=== PATIENT | female | born 1995 | race Caucasian/White ===

== ENCOUNTER → 2023-09-02 12:19 | Outpatient (CLI) | payer OTHER, SELFPAY ==
[2023-09-02 13:10] LABS: Add Manual Diff / Slide Review NO; Basophils Absolute Auto 0 /uL (0-100); Basophils Percent Auto 0.3 % (0-2); Eosinophils Absolute Auto 100 /uL (0-450); Eosinophils Percent Auto 0.9 % (2-4); Hematocrit 35.4 % (36-46); Hemoglobin 11.8 g/dL (12.0-16.0); Lymphocytes Absolute Auto 1300 /uL (1100-4500); Lymphocytes Percent Auto 13.4 % (25-40); Mean Corpuscular HGB Conc 33.4 % (30-36); Mean Corpuscular Hemoglobin 29.1 PG (26-34); Mean Corpuscular Volume 87.1 fL (80-100); Monocytes Absolute Auto 800 /uL (0-900); Monocytes Percent Auto 7.9 % (3-14); Neutrophils Absolute Auto 7700 /uL (1500-7000); Neutrophils Percent Auto 77.5 % (50-75); Platelet Count 270 X10^3/uL (150-400); Red Blood Cell Count 4.06 X10^6/uL (4.0-5.2); Red Cell Distribution Width 14.3 % (11.6-14.8); White Blood Cell Count 9.9 X10^3/uL (4.5-11.0)
[2023-09-02 13:12] LABS: Appearance Urine UA CLEAR; Bilirubin Urine UA NEGATIVE (NEGATIVE); Color Urine UA YELLOW; Glucose Urine UA NEGATIVE (Negative); Ketones Urine UA NEGATIVE (NEGATIVE); Leukocyte Esterase Urine UA NEGATIVE (NEGATIVE); Nitrite Urine UA NEGATIVE (Negative); Occult Blood Urine UA TRACE-INTACT (Negative); Protein Urine UA NEGATIVE (Negative); Urobilinogen Urine UA 0.2 E.U./dL (0.2)
[2023-09-02 13:28] LABS: pH Urine UA 6.5 (4.5-8.0)
[2023-09-02 17:31] LABS: HIV 1 & 2 Ab/Ag 4th Gen Combo NEGATIVE (NEGATIVE); Hep C Virus Ab w/Reflex Quant NEGATIVE s/c (NEGATIVE); Hepatitis B Surface Antigen NEGATIVE s/c (NEGATIVE); Rubella Antibody IgG 8.9 IU/mL (>15)
[2023-09-03 08:08] LABS: RPR Screen Non Reactive (Non Reactive)
[2023-09-03 08:09] LABS: Varicella IgG Antibody <135 index (Immune >165)
== END ==
PROVIDERS: Referring Provider Student in an Organized Health Care Education/Training Program; Visit Provider Student in an Organized Health Care Education/Training Program
DX: Z34.00 Encounter for supervision of normal first pregnancy, unspecified trimester (principal)
CPT/HCPCS: 36415; 80055; 81003; 86787; 86803; 86850; 86900; 86901; 87086; 87389

== ENCOUNTER → 2023-10-28 15:01 | Outpatient (CLI) | payer OTHER, SELFPAY ==
[2023-10-30 20:36] LABS: AFP, Serum 57.6 ng/mL (.); Estriol, Free 0.59 ng/mL (.); Inhibin A, Dimeric 114.62 pg/mL (.); Inhibin A, MoM 0.65 (.); Maternal Ethnicity Caucasian (.); Maternal Weight 128 lbs (.); Number of Fetuses No (.); OSBR Risk 1 IN 2155 (.); Results Report (.); Test Results *Screen Negative* (.); hCG, MoM 0.55 (.); hCG, Serum 28907 mIU/mL (.)
== END ==
LOC: LAB 15:03
PROVIDERS: Referring Provider Family Medicine; Visit Provider Family Medicine
DX: Z34.00 Encounter for supervision of normal first pregnancy, unspecified trimester (principal)
CPT/HCPCS: 36415; 82105; 82677; 84702; 86336

== ENCOUNTER → 2023-11-29 14:42 | Outpatient (CLI) | payer OTHER, SELFPAY ==
--- NOTE | 2023-11-29 14:44 | DI.US.S_ITS ---
PROCEDURE: US OB >= 14 WEEKS FETUS INDICATIONS: anatomy OUTSIDE/PRIOR DATING DATA: Last menstrual period (LMP): 07/12/2023. LMP-based estimated date of delivery (MEENA): 04/11/2024. First dating scan (date and location): 09/02/2023. Estimated date of delivery (MEENA) from first dating scan: 04/17/2024. The calculations are made using the working MEENA of 04/17/2024. TECHNIQUE: Real-time scanning was performed of the fetus, with image documentation and biometric measurements. Endovaginal scanning: Non COMPARISON: None. FINDINGS: General: A single living intrauterine gestation is present. Presentation: Vertex. Placenta: Placental position is posterior , without previa. Amniotic fluid index: 11.7 cm, normal range is 5-24 cm. Single deepest vertical pocket is 3.4 cm. heart rate: 124 beats per minute. Maternal cervical canal: 2.9 cm long. Normal lower limit is 2.5 cm. biometrics: Biparietal diameter: 4.8 cm, 20 week 4 day Head circumference: 17.9 cm, 20 week 3 day Abdominal circumference: 14.4 cm, 19 week 5 day Femur length: 3.1 cm, 19 week 5 day Clinically estimated gestational age: 20 week 0 day Composite gestational age from present scan: 20 week 1 day Estimated weight and percentile: 315 g, 35 percentile Anatomic survey: Neuro: Ventricles are non-dilated at less than 10 mm. Cisterna magna is normal at 3-11 mm. Cerebellum is normal in size and morphology. Nuchal skin fold: Normal at less than 6 mm between 14-21 weeks gestational age. Face: Facial profile not well seen Spine: No evidence for spina bifida. Heart: Right ventricular outflow track not well seen Diaphragm: Diaphragm is intact. Stomach: Left-sided stomach is present. Kidneys: No hydronephrosis. Normal is less than 5 mm in 2nd trimester, less than 7 mm in 3rd trimester. Cord: 2 vessel cord Bladder: Normal in size. Extremities: All 4 extremities identified. IMPRESSION: Single live intrauterine consistent with a 20 week 1 day gestation by current ultrasound. Two vessel cord noted. Right ventricular outflow track and facial profile not well visualized. Attention on follow-up. Approved by: Ivan Coe M.D. on 12/02/2023 at 18:17
== END ==
LOC: US 14:43
PROVIDERS: Referring Provider Family Medicine; Visit Provider Family Medicine
DX: Z34.02 Encounter for supervision of normal first pregnancy, second trimester (principal); Z3A.20 20 weeks gestation of pregnancy
CPT/HCPCS: 76811

== ENCOUNTER → 2023-12-10 11:15 | Outpatient (CLI) | payer OTHER, SELFPAY ==
[2023-12-10 12:04] LABS: Specimen Label NATERA
== END ==
LOC: LAB 11:16
PROVIDERS: Referring Provider Family Medicine; Visit Provider Family Medicine
DX: O28.3 Abnormal ultrasonic finding on antenatal screening of mother (principal)
CPT/HCPCS: 36415

== ENCOUNTER → 2023-12-20 13:15 | Outpatient (CLI) | payer OTHER, SELFPAY ==
--- NOTE | 2023-12-20 13:16 | DI.US.S_ITS ---
PROCEDURE: US OB FOLLOW UP INDICATIONS: couldn't see all structures on anatomy u/s OUTSIDE/PRIOR DATING DATA: Last menstrual period (LMP): 07/12/2023 LMP-based estimated date of delivery (MEENA): 04/11/2024. First dating scan (date and location): 09/02/2023. Estimated date of delivery (MEENA) from first dating scan: 04/17/2024. Working MEENA is 04/17/2024 TECHNIQUE: Real-time scanning was performed of the fetus, with image documentation and biometric measurements. COMPARISON: None. FINDINGS: General: A single living intrauterine gestation is present. Presentation: Transverse. Placenta: Placental position is posterior , without previa. Amniotic fluid index: 13.0 cm, normal range is 5-24 cm. Single deepest vertical pocket is 5.1 cm. heart rate: 149 beats per minute. Maternal cervical canal: 2.8 cm long. Normal lower limit is 2.5 cm. biometrics: Clinically estimated gestational age: 25 weeks 3 days Normal appearance of the RVOT and facial profile. 2 vessel cord again noted. Possible maternal right uterine intramural fibroid versus Fredis Talley contraction measuring 7.0 cm IMPRESSION: 1. Single living IUP redemonstrated and today's exam demonstrating normal appearance of the facial profile and RVOT. 2. 2 vessel cord again seen. 3. Possible maternal intramural fibroid versus Fredis Talley contraction. Attention on follow-up recommended. We strive to produce accurate, complete, and clear reports of imaging services. To assist us in improving patient care, this report was composed using standard report templates and voice recognition software. Therefore, it may contain abnormal punctuation, insertions and/or omissions. Occasional wrong-word or sound-alike substitutions may occur. Though we review the report and make efforts to correct it, we do recommend that the report be read carefully in proper context to recognize any text inaccuracies. Dictated by: Con JAEGER Interpreted: Kemar Patton MD on 12/20/2023 at 14:48 Transcribed by: SUPA on 12/20/2023 at 14:51 Approved by: Kemar Patton M.D. on 12/20/2023 at 17:07
== END ==
LOC: US 13:15
PROVIDERS: Referring Provider Family Medicine; Visit Provider Family Medicine
DX: Z36.2 Encounter for other antenatal screening follow-up (principal); Z3A.25 25 weeks gestation of pregnancy
CPT/HCPCS: 76816

== ENCOUNTER 2024-01-13 09:08 | Outpatient (CLI) | payer OTHER, SELFPAY ==
--- NOTE | 2024-01-13 09:42 | PM.OBTRLD ---
Visit Information Visit Information Date of evaluation: 01/13/24 Primary OB Provider: Hailey Austin On-call OB Provider: Evelyn Carpio Reason for Evaluation: Yes non-stress test REPLACED BY [facility] Medical History (Updated 01/13/24 @ 09:45 by Evelyn Carpio MD) Acne (~2009) Anxiety Radial styloid tenosynovitis (~2020) Vaginismus Healthy adult Surgical History (Updated 08/19/23 @ 09:05 by Vannessa Henderson RN) No pertinent past surgical history Family History (Updated 10/26/23 @ 20:52 by Rosie Sagastume) Mother Hypothyroidism Sister Hyperthyroidism Grandfather Heart attack Hyperlipidemia Father Hyperlipidemia Social History marital status: number of children: 0 household members: spouse lives independently: Yes caregiver/support person: No housing: house pets and animals: Yes (2 small dogs) education level: college occupational status: employed current occupational exposures/hazards: No special nathaniel needs: No travel history: recent seatbelt use: always helmet use: Yes water heater temp set < 120 deg: Yes working smoke detector in home: Yes fire extinguisher in home: Yes carbon monox detector in home: Yes firearms in home: No do you feel safe at home: Yes Smoking Status: Never smoker second hand exposure: No alcohol intake: former substance use type: does not use during the past year weight has: remained stable well-balanced diet: rarely or never daily servings fruits/ve-1 caffeine: Yes (aware of 200mg limit) Type(s) of exercise: none Review of Systems Review of Systems Narrative: Patient presented to labor and delivery because she has not felt her baby move in 2 days. No abdominal pain. No vaginal bleeding. No fevers. Exam Narrative Exam Narrative: Patient's abdomen is gravid, soft, nontender. Ultrasound was performed and shows a non viable fetus in vertex presentation with normal amniotic fluid volume. Four-chamber heart was seen but is not yaron. Evaluation Evaluation Baseline heart rate: 0 Diagnosis, Plan/Disposition Final Diagnosis (1) demise in stevens greater than 22 weeks gestation, antepartum: Status: Acute Plan/Disposition Plan: Discussed with patient it is unclear at this time why the baby has . Perhaps due to the two-vessel cord but normal fluid. Discussed because the baby is vertex the safest thing for her and her future plans would be to have a vaginal delivery. Patient is going to talk to her and decide when she would like to come in for induction of labor and delivery of the nonviable fetus. Reiterated by the nurse and me that her recent travel did not cause the baby to pass away. Our condolences were given to the patient. She will let us know when she is ready to be delivered. OB Disposition: home
== END 2024-01-13 09:36 | disposition home or self-care (01) ==
LOC: LABOR 13:14 → OB 02-07 08:25
PROVIDERS: Referring Provider Family Medicine; Visit Provider Family Medicine
DX: O36.4XX0 Maternal care for intrauterine death, not applicable or unspecified (principal); Z3A.26 26 weeks gestation of pregnancy
CPT/HCPCS: 59025; 76815; G0378; G0379

== ENCOUNTER 2024-01-14 11:15 | Inpatient (IN) | payer OTHER, SELFPAY ==
--- NOTE | 2024-01-14 11:25 | PM.OBHP.1 ---
OB HPI Date/Time Date of admission: 01/14/24 Date Patient Seen: 01/14/24 Time Patient Seen: 11:25 History of Present Condition Chief complaint: IUFD, 26+3 wks, two vessel umbilical cord : 1 Para: 0 Estimated Date of Delivery: 04/17/24 Estimated Gestational Age (weeks): 26+3 Narrative: Renee Nayak is a 28 year old primigravida admitted now at 26+3 weeks gestational age after discovery of intrauterine demise yesterday. Patient last detected movement on the evening of 01/05/2024 and ultrasound yesterday confirmed intrauterine demise. Patient's course has been largely unremarkable with normal cell free DNA studies showing a low risk male infant after her 20 week anatomy scan showed a 2 vessel umbilical cord. The remainder of the anatomic survey was normal and growth has been appropriate to date. Indications Indication for induction OB: other ( demise) History of Present care: good care Dating criteria: LMP confirmed by 1st trimester US Ultrasounds: normal 1st trimester US and normal mid trimester US Abnormal ultrasound findings: 2 vessel umbilical cord without obvious dysmorphism; CfDNA studies negative Obstetrical complications: other (IUFD) Medical complications: none Preadmission Labs Blood type: A (+) positive -: Antibody screen: negative, GBS status: unknown, HBsAG: negative, HIV: negative and RPR/VDLR: negative -: Chlamydia screen: not detected and Gonorrhea screen: not detected -: Rubella: not immune and Varicella: not immune HCT: 36.4 HCAB: negative PAP: Normal Quad screen: Normal Cell-free DNA: Low risk male Prior (ies) History: Primigravida Evaluation Evaluation Baseline heart rate: 0 Variability: Absent (0-2) monitor accelerations: Absent Monitor Decelerations: Absent Dilation: Closed Effacement: 0-30% station: -3 Position of cervix: mid Consistency: soft Boateng score: 3 PFSH Medical History (Updated 01/13/24 @ 09:45 by Evelyn Carpio MD) Acne (~2009) Anxiety Radial styloid tenosynovitis (~2020) Vaginismus Healthy adult Surgical History (Updated 08/19/23 @ 09:05 by Vannessa Henderson RN) No pertinent past surgical history Family History (Updated 10/26/23 @ 20:52 by Rosie Sagastume) Mother Hypothyroidism Sister Hyperthyroidism Grandfather Heart attack Hyperlipidemia Father Hyperlipidemia Social History marital status: number of children: 0 household members: spouse lives independently: Yes caregiver/support person: No housing: house pets and animals: Yes (2 small dogs) education level: college occupational status: employed current occupational exposures/hazards: No special nathaniel needs: No travel history: recent seatbelt use: always helmet use: Yes water heater temp set < 120 deg: Yes working smoke detector in home: Yes fire extinguisher in home: Yes carbon monox detector in home: Yes firearms in home: No do you feel safe at home: Yes Smoking Status: Never smoker second hand exposure: No alcohol intake: former substance use type: does not use during the past year weight has: remained stable well-balanced diet: rarely or never daily servings fruits/ve-1 caffeine: Yes (aware of 200mg limit) Type(s) of exercise: none Meds Home Medications and Allergies Home Medications Medication Instructions Recorded Confirmed Type vitamin-ferrous sulfate tab PO 08/19/23 01/07/24 History 27 mg iron-folic acid 0.8 mg tablet sertraline 25 mg tablet 25 mg PO DAILY #30 tabs 12/10/23 01/07/24 Rx Allergies Allergy/AdvReac Type Severity Reaction Status Date / Time No Known Drug Allergies Allergy Unverified 01/07/24 14:37 Review of Systems Review of Systems Narrative: Problem-specific ROS positives included in HPI OB Exam Vital signs Blood Pressure: 137/80 Pulse Rate: 83 Temperature: 98.8 F HENMT Head: normal to inspection, normocephalic and atraumatic Eyes General: appearance normal, both eyes and all related structures Resp Effort & Inspection: normal respiratory effort and able to speak in complete sentences Uterus Location (Fundal Height): 26 Presentation: vertex Estimated Weight (lbs): 2 Objective Labs 01/14/24 12:25 Assessment and Plan Assessment and Plan Assessment and Plan narrative: ASSESSMENT 1. Intrauterine , 26+ 3 weeks gestational age 2. Intrauterine demise 3. Two-vessel umbilical cord PLAN 1. Admit for ripening, induction, and delivery 2. See admission orders
--- NOTE | 2024-01-14 12:31 | PM.PN.1 ---
Subjective Subjective Date Patient Seen: 01/14/24 Time Patient Seen: 13:00 Interval history: The patient is accompanied by her Michael and her sister as well as her mother. Exam Narrative Exam Narrative: No change from admission exam. All appeared to be grieving appropriately with excellent communication between family members. Objective Labs 01/14/24 12:25 [facility] Medical History (Updated 01/14/24 @ 21:26 by Gerald Lauren MD) Acne (~2009) Anxiety Radial styloid tenosynovitis (~2020) Vaginismus Healthy adult Surgical History (Updated 08/19/23 @ 09:05 by Vannessa Henderson RN) No pertinent past surgical history Family History (Updated 10/26/23 @ 20:52 by Rosie Sagastume) Mother Hypothyroidism Sister Hyperthyroidism Grandfather Heart attack Hyperlipidemia Father Hyperlipidemia Social History marital status: number of children: 0 household members: spouse lives independently: Yes caregiver/support person: No housing: house pets and animals: Yes (2 small dogs) education level: college occupational status: employed current occupational exposures/hazards: No special nathaniel needs: No travel history: recent seatbelt use: always helmet use: Yes water heater temp set < 120 deg: Yes working smoke detector in home: Yes fire extinguisher in home: Yes carbon monox detector in home: Yes firearms in home: No do you feel safe at home: Yes Smoking Status: Never smoker second hand exposure: No alcohol intake: former substance use type: does not use during the past year weight has: remained stable well-balanced diet: rarely or never daily servings fruits/ve-1 caffeine: Yes (aware of 200mg limit) Type(s) of exercise: none Assessment & Plan Assessment and plan (1) demise in [place] greater than 22 weeks gestation, antepartum: Status: Acute (2) Anxiety: Status: Acute (3) Vaginismus: Status: Acute (4) : Qualifiers: Weeks of gestation: 26 weeks Qualified Code(s): Z3A.26 - 26 weeks gestation of Status: Acute Plan We had an extended discussion regarding the demise leading to her admission, ripening, and her induction. Sincere condolences expressed and open discussion with the family regarding what has happened, potential causes, commitment to determining a cause if possible, and support during the course of this very difficult time for her in the family were very fruitful. We discussed at length the plan for ripening and induction with oral Cytotec overnight, early placement of continuous lumbar epidural with catheter, HS sedation for sleep, and availability of as needed anxiolytics. We also discussed the course and conduct of ripening, induction, and delivery as well as expectations at the time of delivery and bonding with her son Maxwell. We will continue these discussions and also advised the patient that my colleague Dr. Monica Reynoso, would also be assisting in her care during the course of the challenging times ahead. Time Spent With Patient Time with patient: less than 30 minutes
[2024-01-14 12:42] LABS: Add Manual Diff / Slide Review NO; Basophils Absolute Auto 0 /uL (0-100); Basophils Percent Auto 0.3 % (0-2); Eosinophils Absolute Auto 0 /uL (0-450); Eosinophils Percent Auto 0.1 % (2-4); Hematocrit 36.4 % (36-46); Hemoglobin 12.3 g/dL (12.0-16.0); Lymphocytes Absolute Auto 1100 /uL (1100-4500); Lymphocytes Percent Auto 9.7 % (25-40); Mean Corpuscular HGB Conc 33.7 % (30-36); Mean Corpuscular Hemoglobin 29.9 PG (26-34); Mean Corpuscular Volume 88.8 fL (80-100); Monocytes Absolute Auto 700 /uL (0-900); Monocytes Percent Auto 6.5 % (3-14); Neutrophils Absolute Auto 9600 /uL (1500-7000); Neutrophils Percent Auto 83.4 % (50-75); Platelet Count 273 X10^3/uL (150-400); Red Cell Distribution Width 13.8 % (11.6-14.8); White Blood Cell Count 11.5 X10^3/uL (4.5-11.0)
[2024-01-14] MEDS: LACTATED RINGERS 1,000 ML 100 ML IV (13:24)
[2024-01-14 13:49] VITALS: BP 137/80
--- NOTE | 2024-01-14 14:13 | PM.AN.REGBLK ---
Regional Block <Aniya Pitts CRNA - Last Filed: 01/15/24 10:21> Pre-procedure Procedure: Continuous Lumbar Epidural for L&D Attending OB provider: Hailey Austin PMH/ROS narrative: presenting s/p demise at 26 weeks, requesting labor epidural. PSH/Anesthesia history narrative: See pre-anesthesia eval. Exam narrative: See pre-anesthesia eval. ASA Class: II Labs: Hct 36.4 % (36-46) 01/14/24 12:25 Plt Count 273 X10^3/uL (150-400) 01/14/24 12:25 Medications: Current Medications Generic Name Dose Route Start Last Admin Trade Name Freq PRN Reason Stop Dose Admin Acetaminophen 650 mg 01/14/24 11:25 Acetaminophen 325 Mg Tablet PO Q4HR PRN Fever/Mild Pain (1-3) Calcium Carbonate 1,000 mg 01/14/24 11:25 Calcium Carbonate 500 Mg Tab PO Q2H PRN Dyspepsia Lactated Ringer's 1,000 mls @ 100 mls/hr 01/14/24 11:30 01/14/24 13:24 Lactated Ringers IV 100 mls/hr CONT ROWAN Administration Misoprostol 400 mcg 01/14/24 13:00 Misoprostol 200 Mcg Tablet VAG Q4HR ROWAN Morphine Sulfate 2 mg 01/14/24 11:25 Morphine 2 Mg/Ml Inj IV Q4HR PRN Pain, Moderate (4-6) Zolpidem Tartrate 5 mg 01/14/24 11:25 Zolpidem 5 Mg Tablet PO BEDTIME PRN Sleep Allergies: Allergies Allergy/AdvReac Type Severity Reaction Status Date / Time No Known Drug Allergies Allergy Unverified 01/07/24 14:37 Procedure Insertion date: 01/14/24 Insertion time: 13:56 Prep/Local: 1% lidocaine (3mL at skin. Chlorhexadine for skin prep.) Interspace: L2/L3 Patient position: sitting Needle: 18 gauge Yakelin Loss of resistance with: saline OLI at (cm): 5 Catheter placed at SKIN (cm): 12 Catheter in SPACE (cm): 7 Insertion: No CSF, No Blood, No Paresthesia with insertion, No Paresthesia with injection and No Test dose reaction Initial Medications TEST DOSE time: 13:57 TEST DOSE: 1.5% lidocaine with epinephrine 1:200k (mL): 3 Infusion INFUSION: 0.125% bupivacaine and with fentanyl 2 mcg/mL Initial rate (mL/hr): 4 Subsequent interventions: Discussed with patient starting epidural at low rate and holding PCEA until contractions increase in strength. Patient agreeable. Post-procedure Anesthesia date START: 01/14/24 Anesthesia time START: 13:25 Anesthesia date END: 01/15/24 Anesthesia time END: 10:00 Post-procedure Anesthesia Assessment: Yes CV function: HR/BP stable, Yes Resp function: RR/sat/airway adequate, Yes Post-op hydration adequate, Yes Pain control adequate, Yes Nausea & vomiting absent, Yes Temperature > 36 C and Yes Mental status appropriate <Tony Barrera MD - Last Filed: 01/15/24 10:57> Infusion Subsequent interventions: Discussed with patient starting epidural at low rate and holding PCEA until contractions increase in strength. Patient agreeable. Maile Barrera MD - Bolus with 3ml 0.5%Bupivacaine + 3ml 2%Lidocaine. Increased rate to 6ml/hr.
[2024-01-14 14:35] LABS: UR Morphine/Opiate cutoff 300 Negative (Negative); Ur Creatinine Normal (Normal); Ur Specific Gravity Normal (Normal); Urine Amphetamines Negative (Negative); Urine Barbiturates Negative (Negative); Urine Benzodiazepines Negative (Negative); Urine Cocaine Negative (Negative); Urine MDMA Negative (Negative); Urine Methadone Negative (Negative); Urine Methamphetamines Negative (Negative); Urine Oxycodone Negative (Negative); Urine Phencyclidine Negative (Negative); Urine Tetrahydrocannabinol Negative (Negative); Urine Tricyclic Antidepressant Negative (Negative); Urine pH Normal (Normal)
[2024-01-14] MEDS: miSOPROStoL 25 MCG TABLET 50 MCG PO ×3 (15:40→23:49)
--- NOTE | 2024-01-14 16:06 | PM.AN.REGBLK ---
Regional Block Pre-procedure Labs: Hct 36.4 % (36-46) 01/14/24 12:25 Plt Count 273 X10^3/uL (150-400) 01/14/24 12:25 Medications: Current Medications Generic Name Dose Route Start Last Admin Trade Name Freq PRN Reason Stop Dose Admin Acetaminophen 650 mg 01/14/24 11:25 Acetaminophen 325 Mg Tablet PO Q4HR PRN Fever/Mild Pain (1-3) Butorphanol Tartrate 0.5 mg 01/14/24 14:19 Butorphanol 1 Mg/Ml Vial IV 01/15/24 14:20 Q3H PRN Pain, Moderate (4-6) Calcium Carbonate 1,000 mg 01/14/24 11:25 Calcium Carbonate 500 Mg Tab PO Q2H PRN Dyspepsia Diphenhydramine HCl 25 mg 01/14/24 14:30 Diphenhydramine 50 Mg/Ml Vial IV 01/15/24 14:31 Q30MIN ROWAN Diphenhydramine HCl 25 mg 01/14/24 14:21 Diphenhydramine 50 Mg/Ml Vial IV Q10M PRN Pruritis Ephedrine Sulfate 10 mg 01/14/24 14:21 Ephedrine 50 Mg/Ml Vial IV Q5M PRN Blood pressure decrease more than 20% of baseline. Lactated Ringer's 1,000 mls @ 100 mls/hr 01/14/24 11:30 01/14/24 13:24 Lactated Ringers IV 100 mls/hr CONT ROWAN Administration Sodium Chloride 1,000 mls @ 100 mls/hr 01/14/24 14:30 Normal Saline 0.9% IV 01/15/24 14:21 CONT ROWAN Lactated Ringer's 1,000 mls @ 100 mls/hr 01/14/24 14:30 Lactated Ringers IV CONT ROWAN FENT 2MCG/ML BUPIV 0.125% EPI 200 mcg in 100 mls @ 4 mls/hr 01/14/24 14:30 Fentanyl/Bupiv/Ns 2mcg/Ml - 0.125% EPIDURAL CONT ROWAN Misoprostol 50 mcg 01/14/24 15:30 01/14/24 15:40 Misoprostol 25 Mcg Tablet PO 50 mcg Q4H ROWAN Administration Morphine Sulfate 2 mg 01/14/24 11:25 Morphine 2 Mg/Ml Inj IV Q4HR PRN Pain, Moderate (4-6) Nalbuphine HCl 5 mg 01/14/24 14:19 Nalbuphine 20 Mg/Ml Ampul IV Q6H PRN Pruritus Nalbuphine HCl 2.5 mg 01/14/24 14:21 Nalbuphine 20 Mg/Ml Ampul IV Q10M PRN Pruritis Naloxone HCl 0.4 mg 01/14/24 14:19 Naloxone 0.4 Mg/Ml Vial IV Q2MIN PRN Opiate Reversal Ondansetron HCl 4 mg 01/14/24 17:00 Ondansetron 4 Mg/2 Ml Inj IV 01/14/24 21:01 Q4HR ROWAN Oxycodone/Acetaminophen 1 tab 01/14/24 14:19 Oxycodone/Acetaminophen 5/325 Tablet PO 01/15/24 14:20 Q4HR PRN Pain, Moderate (4-6) Zolpidem Tartrate 5 mg 01/14/24 11:25 Zolpidem 5 Mg Tablet PO BEDTIME PRN Sleep Allergies: Allergies Allergy/AdvReac Type Severity Reaction Status Date / Time No Known Drug Allergies Allergy Unverified 01/07/24 14:37 --: RN and patient requesting bolus for boyle catheter placement. Pump infusion left unchanged. BP stable prior to bolus. Initial Medications BOLUS DOSE time: 15:55 BOLUS DOSE (mL): 5 BOLUS DOSE med: 0.25% bupivacaine
[2024-01-14 21:23] VITALS: BP 137/80; PULSE 83; TEMP 37.1
--- NOTE | 2024-01-14 21:30 | PM.OBPNLAB ---
Date/Time Date Patient Seen: 01/14/24 Time Patient Seen: 17:30 Pain Control Pain control: tolerating well and epidural Pelvic Exam station: -3 Assessment and Plan Assessment: other (Ripening ongoing) Plan: continuous present management Comments: The patient is very comfortable with her epidural in place. Trevino catheter inserted and draining well. Again discussed plan for overnight management and rationale for decisions with the patient and her family. They are all understadably saddened but all seem to be coping with this very difficult situation in a mutually supportive but understandably subdued way. Staff aware I will be manager acquisition tonight supporting any needs the patient or her family may have.
[2024-01-15] MEDS: ZOLPIDEM 5 MG TABLET PO (00:44)
[2024-01-15] MEDS: miSOPROStoL 25 MCG TABLET 50 MCG PO ×2 (03:46→09:34)
--- NOTE | 2024-01-15 08:49 | PM.OBPNLAB ---
Date/Time Date Patient Seen: 01/15/24 Time Patient Seen: 08:00 Pain Control Pain control: tolerating well and epidural Pelvic Exam Dilation (cm): 4 Effacement (%): 100 station: -3 Amniotic membrane status: Bulging Comments: palpable parts within vaginal canal Contractions Contractions on admission: irregular Monitor mode: Palpation Contraction pattern: Irregular Status Comments: active management demise Assessment and Plan Assessment: induction ongoing Plan: continuous present management Comments: Care assumed from Dr. Lauren, condolences offered to patient and spouse maternal VSS/afebrile, received 50mcg misoprostol q4h overnight for purposes of cervical ripening Severe intolerance to exams/profound vaginismus secondary to h/o SA; moderate improvement with epidural however still with marked involuntary contraction On single digit exam SVE 4/C/ parts palpable within vagina AROM performed with return of scant serosanginuous non-malodorous fluid s/p overnight low-dose misoprostol, start pitocin for further augmentation additional dose PO misoprostol 50mcg now Stat CBC, fibrinogen ordered to assess maternal clotting status PRN IV analgesia, nitrous for maternal analgesia anticipate vaginal delivery
--- NOTE | 2024-01-15 09:09 | PM.AN.REGBLK ---
Regional Block Pre-procedure Labs: Hct 36.4 % (36-46) 01/14/24 12:25 Plt Count 273 X10^3/uL (150-400) 01/14/24 12:25 Medications: Current Medications Generic Name Dose Route Start Last Admin Trade Name Freq PRN Reason Stop Dose Admin Acetaminophen 650 mg 01/14/24 11:25 Acetaminophen 325 Mg Tablet PO Q4HR PRN Fever/Mild Pain (1-3) Butorphanol Tartrate 0.5 mg 01/14/24 14:19 Butorphanol 1 Mg/Ml Vial IV 01/15/24 14:20 Q3H PRN Pain, Moderate (4-6) Calcium Carbonate 1,000 mg 01/14/24 11:25 Calcium Carbonate 500 Mg Tab PO Q2H PRN Dyspepsia Diphenhydramine HCl 25 mg 01/14/24 14:30 Diphenhydramine 50 Mg/Ml Vial IV 01/15/24 14:31 Q30MIN ROWAN Diphenhydramine HCl 25 mg 01/14/24 14:21 Diphenhydramine 50 Mg/Ml Vial IV Q10M PRN Pruritis Ephedrine Sulfate 10 mg 01/14/24 14:21 Ephedrine 50 Mg/Ml Vial IV Q5M PRN Blood pressure decrease more than 20% of baseline. Lactated Ringer's 1,000 mls @ 100 mls/hr 01/14/24 11:30 01/14/24 13:24 Lactated Ringers IV 100 mls/hr CONT ROWAN Administration Sodium Chloride 1,000 mls @ 100 mls/hr 01/14/24 14:30 Normal Saline 0.9% IV 01/15/24 14:21 CONT ROWAN Lactated Ringer's 1,000 mls @ 100 mls/hr 01/14/24 14:30 Lactated Ringers IV CONT ROWAN FENT 2MCG/ML BUPIV 0.125% EPI 200 mcg in 100 mls @ 4 mls/hr 01/14/24 14:30 Fentanyl/Bupiv/Ns 2mcg/Ml - 0.125% EPIDURAL CONT ROWAN Oxytocin/Lactated Ringer's 30 unit in 500 mls @ 2 mls/hr 01/15/24 08:49 Oxytocin Premix IV TITRATE ROWAN Protocol 2 MILLIUNIT/MIN Lorazepam 0.5 mg 04/02/24 21:09 Lorazepam 0.5 Mg Tablet PO Q4HR PRN Anxiety Misoprostol 50 mcg 01/14/24 15:30 01/15/24 03:46 Misoprostol 25 Mcg Tablet PO 50 mcg Q4H ROWAN Administration Morphine Sulfate 2 mg 01/14/24 11:25 Morphine 2 Mg/Ml Inj IV Q4HR PRN Pain, Moderate (4-6) Nalbuphine HCl 5 mg 01/14/24 14:19 Nalbuphine 20 Mg/Ml Ampul IV Q6H PRN Pruritus Nalbuphine HCl 2.5 mg 01/14/24 14:21 Nalbuphine 20 Mg/Ml Ampul IV Q10M PRN Pruritis Naloxone HCl 0.4 mg 01/14/24 14:19 Naloxone 0.4 Mg/Ml Vial IV Q2MIN PRN Opiate Reversal Oxycodone/Acetaminophen 1 tab 01/14/24 14:19 Oxycodone/Acetaminophen 5/325 Tablet PO 01/15/24 14:20 Q4HR PRN Pain, Moderate (4-6) Zolpidem Tartrate 5 mg 01/14/24 11:25 01/15/24 00:44 Zolpidem 5 Mg Tablet PO 5 mg BEDTIME PRN Administration Sleep Allergies: Allergies Allergy/AdvReac Type Severity Reaction Status Date / Time No Known Drug Allergies Allergy Unverified 01/07/24 14:37 Initial Medications BOLUS DOSE time: 09:04 BOLUS DOSE (mL): 5 BOLUS DOSE med: 0.25% bupivacaine Infusion Initial rate (mL/hr): 11
--- NOTE | 2024-01-15 09:16 | PM.AN.REGBLK ---
Regional Block Pre-procedure Labs: Hct 36.4 % (36-46) 01/14/24 12:25 Plt Count 273 X10^3/uL (150-400) 01/14/24 12:25 Medications: Current Medications Generic Name Dose Route Start Last Admin Trade Name Freq PRN Reason Stop Dose Admin Acetaminophen 650 mg 01/14/24 11:25 Acetaminophen 325 Mg Tablet PO Q4HR PRN Fever/Mild Pain (1-3) Butorphanol Tartrate 0.5 mg 01/14/24 14:19 Butorphanol 1 Mg/Ml Vial IV 01/15/24 14:20 Q3H PRN Pain, Moderate (4-6) Calcium Carbonate 1,000 mg 01/14/24 11:25 Calcium Carbonate 500 Mg Tab PO Q2H PRN Dyspepsia Diphenhydramine HCl 25 mg 01/14/24 14:30 Diphenhydramine 50 Mg/Ml Vial IV 01/15/24 14:31 Q30MIN ROWAN Diphenhydramine HCl 25 mg 01/14/24 14:21 Diphenhydramine 50 Mg/Ml Vial IV Q10M PRN Pruritis Ephedrine Sulfate 10 mg 01/14/24 14:21 Ephedrine 50 Mg/Ml Vial IV Q5M PRN Blood pressure decrease more than 20% of baseline. Lactated Ringer's 1,000 mls @ 100 mls/hr 01/14/24 11:30 01/14/24 13:24 Lactated Ringers IV 100 mls/hr CONT ROWAN Administration Sodium Chloride 1,000 mls @ 100 mls/hr 01/14/24 14:30 Normal Saline 0.9% IV 01/15/24 14:21 CONT ROWAN Lactated Ringer's 1,000 mls @ 100 mls/hr 01/14/24 14:30 Lactated Ringers IV CONT ROWAN FENT 2MCG/ML BUPIV 0.125% EPI 200 mcg in 100 mls @ 4 mls/hr 01/14/24 14:30 Fentanyl/Bupiv/Ns 2mcg/Ml - 0.125% EPIDURAL CONT ROWAN Oxytocin/Lactated Ringer's 30 unit in 500 mls @ 2 mls/hr 01/15/24 08:49 Oxytocin Premix IV TITRATE ROWAN Protocol 2 MILLIUNIT/MIN Lorazepam 0.5 mg 04/02/24 21:09 Lorazepam 0.5 Mg Tablet PO Q4HR PRN Anxiety Misoprostol 50 mcg 01/14/24 15:30 01/15/24 03:46 Misoprostol 25 Mcg Tablet PO 50 mcg Q4H ROWAN Administration Morphine Sulfate 2 mg 01/14/24 11:25 Morphine 2 Mg/Ml Inj IV Q4HR PRN Pain, Moderate (4-6) Nalbuphine HCl 5 mg 01/14/24 14:19 Nalbuphine 20 Mg/Ml Ampul IV Q6H PRN Pruritus Nalbuphine HCl 2.5 mg 01/14/24 14:21 Nalbuphine 20 Mg/Ml Ampul IV Q10M PRN Pruritis Naloxone HCl 0.4 mg 01/14/24 14:19 Naloxone 0.4 Mg/Ml Vial IV Q2MIN PRN Opiate Reversal Oxycodone/Acetaminophen 1 tab 01/14/24 14:19 Oxycodone/Acetaminophen 5/325 Tablet PO 01/15/24 14:20 Q4HR PRN Pain, Moderate (4-6) Zolpidem Tartrate 5 mg 01/14/24 11:25 01/15/24 00:44 Zolpidem 5 Mg Tablet PO 5 mg BEDTIME PRN Administration Sleep Allergies: Allergies Allergy/AdvReac Type Severity Reaction Status Date / Time No Known Drug Allergies Allergy Unverified 01/07/24 14:37 --: Baby delivered. Pitocin continuing to run due to some retained placenta. Dr Reynoso will revaluate at 1:00 to see if D&C is necessary.
--- NOTE | 2024-01-15 11:03 | PM.OBPN.1 ---
Subjective - OB Subjective Patient comments: no complaints Narrative: Pt resting in bed with spouse, grieving appropriate, infant at bedside Date Patient Seen: 01/15/24 Time Patient Seen: 11:03 Exam Vital Signs (past 8 hours): BP 112/74 HR 65bpm SpO2 98% RA afebrile Narrative Exam Narrative: resting comfortably, appropriately grieving Const General: cooperative HENMT Head: normal to inspection Resp Effort & Inspection: normal respiratory effort Other: fundus firm at level of pubic symphysis, non-tender scant lochia noted per peripad Skin General: no rashes or lesions noted Neuro General: patient alert and patient awake Extrem General: normal to inspection Psych Appearance: grossly normal Mental Status: mental status grossly normal Speech and Movement: speech and movement normal Other: appropriately tearful/grieving Objective Labs 01/14/24 12:25 Labs: Laboratory Results - last 24 hr 01/14/24 01/14/24 12:25 13:30 WBC 11.5 H RBC 4.10 Hgb 12.3 Hct 36.4 MCV 88.8 MCH 29.9 MCHC 33.7 RDW 13.8 Plt Count 273 Neut % (Auto) 83.4 H Lymph % (Auto) 9.7 L Boyle % (Auto) 6.5 Eos % (Auto) 0.1 L Baso % (Auto) 0.3 Neut # (Auto) 9600 H Lymph # (Auto) 1100 Boyle # (Auto) 700 Eos # (Auto) 0 Baso # (Auto) 0 U Opiates 300ng/mL cut Negative Ur Oxycodone Screen Negative Urine Methadone Screen Negative Ur Barbiturates Screen Negative U Tricyclic Antidepress Negative Ur Phencyclidine Scrn Negative Ur Amphetamines Screen Negative U Methamphetamines Scrn Negative Ur MDMA Scrn (Ecstasy) Negative U Benzodiazepines Scrn Negative Urine Cocaine Screen Negative U Marijuana (THC) Screen Negative Urine pH Normal Urine Specific [place] Normal Ur Creatinine Normal Assessment & Plan Assessment and Plan (1) demise in stevens greater than 22 weeks gestation, antepartum: Status: Acute Assessment and plan: routine care single dose each IV gent/clinda for endometritis ppx Anticipate dc to home later this afternoon vs AM pending clinical course (2) Anxiety: Status: Acute Assessment and plan: high risk complicated grief close outpatient f/u with primary OB, Dr. Austin (3) Vaginismus: Status: Acute (4) : Status: Acute Plan day: 0 plan OB: routine care Time Spent With Patient Time: Total time spent is greater than 50% in coordination of care (as documented) at patient's floor/unit and/or counseling patient: Time with patient: 15-24 minutes
--- NOTE | 2024-01-15 11:13 | P.PCNOB_ITS ---
Events: Other (IUFD at 26wga diagnosed prior to admission) Labor & Delivery Delivery date: 01/15/24 Intrapartal Events: None Cervical ripening method: per misoprostal protocol Delivery augmentation: rupture of membranes and pitocin Delivery monitor: none Route of delivery: L&D Laceration Description: Perineal - 1st Degree (hemostatic ) Estimated blood loss (mL): 50 Anesthesia Type: Epidural Narrative: Patient notified RN of intense sensation of rectal pressure. Patient placed in modified dorsal lithotomy position with vertex noted at +4 station. Active second stage initiated. Over next several contractions with excellent maternal effort slow delivery of head. Spontaneous delivery of both anterior and posterior shoulders, remainder of body delivered with gentle upwards traction. Fetus inspected, noted umbilical cord hematoma extending from insertion approximately 10cm with subsequent 6cm area of profound blanching consistent with cord accident. Umbilical cord clamped x2 and cut by FOB, passed to waiting clinical staff pharmacist per maternal request. Perineal exam was performed revealing a hemostatic deep first degree perineal laceration without indication for repair. Placenta palpable within TIMBO and delivered spontaneously with gentle cord traction in tandem with maternal expulsive efforts. Placenta delivered and inspected and small 3x2cm area of possible avulsed cotyledon identified. Additional internal exams limited secondary to maternal intolerance. Bedside transabdominal US performed noting a thin EMS, slight thickening within the TIMBO but inconsistent with retained products. Fundus palpated and firm, non-tender, no active bleeding appreciated. Routine IV pitocin infusing, single dose gent/clinda for endometritis ppx administered Plan for aftercare: Routine care
[2024-01-15] MEDS: CLINDAMYCIN 900 MG/50 ML PIGGYBACK 50 MG IV (11:24)
--- NOTE | 2024-01-15 11:40 | PM.AN.REGBLK ---
Regional Block Pre-procedure Labs: Hct 36.4 % (36-46) 01/14/24 12:25 Plt Count 273 X10^3/uL (150-400) 01/14/24 12:25 Medications: Current Medications Generic Name Dose Route Start Last Admin Trade Name Freq PRN Reason Stop Dose Admin Acetaminophen 650 mg 01/14/24 11:25 Acetaminophen 325 Mg Tablet PO Q4HR PRN Fever/Mild Pain (1-3) Acetaminophen 650 mg 01/15/24 10:19 Acetaminophen 325 Mg Tablet PO Q6HR PRN Pain, Mild (1-3) Hydrocodone Bitart/Acetaminophen 1 tab 01/15/24 10:19 Hydrocodone/Acet 5/325 Tablet PO Q4HR PRN Pain, Moderate (4-6) Carboprost Tromethamine 250 mcg 01/15/24 10:19 Carboprost 250 Mcg/Ml Ampul IM Q90MIN PRN Bleeding Oxytocin/Lactated Ringer's 30 unit in 500 mls @ 200 mls/hr 01/15/24 10:19 Oxytocin Premix IV CONT PRN Bleeding Protocol Tranexamic Acid 1,000 mg/ 100 mls @ 200 mls/hr 01/15/24 10:19 Sodium Chloride IV NOW PRN Bleeding Clindamycin Phosphate 900 mg in 50 mls @ 50 mls/hr 01/15/24 11:02 01/15/24 11:24 Cleocin IV 01/15/24 12:01 50 mls/hr NOW ONE Administration Ibuprofen 600 mg 01/16/24 10:19 Ibuprofen 600 Mg Tablet PO Q6HR PRN Pain, Mild (1-3) Ketorolac Tromethamine 30 mg 01/15/24 10:19 Ketorolac 30 Mg/Ml Vial IV 01/16/24 04:20 Q6H ROWAN Methylergonovine Maleate 0.2 mg 01/15/24 10:19 Methylergonovine 0.2 Mg Tablet PO Q6HR PRN Heavy bleeding Methylergonovine Maleate 0.2 mg 01/15/24 10:19 Methylergonovine 0.2 Mg/Ml Vial IM NOW PRN Bleeding Misoprostol 1,000 mcg 01/15/24 10:19 Misoprostol [address] NOW PRN Bleeding Misoprostol 400 mcg 01/15/24 10:19 Misoprostol 200 Mcg Tablet SL NOW PRN Bleeding Misoprostol 800 mcg 01/15/24 10:19 Misoprostol [address] NOW PRN Bleeding Naloxone HCl 0.2 mg 01/15/24 10:19 Naloxone 0.4 Mg/Ml Vial IV Q2MIN PRN Opiate Reversal Oxytocin 10 unit 01/15/24 10:19 Oxytocin 10 Unit/Ml Vial IM NOW PRN Bleeding Allergies: Allergies Allergy/AdvReac Type Severity Reaction Status Date / Time No Known Drug Allergies Allergy Unverified 01/07/24 14:37 --: Epidural infusion discontinued by RN. Will plan to leave epidural in place for retained placenta. Dr Reynoso to evaluate at 1:00pm. Keeping patient NPO until then.
--- NOTE | 2024-01-15 11:44 | PM.AN.REGBLK ---
Regional Block Pre-procedure Labs: Hct 36.4 % (36-46) 01/14/24 12:25 Plt Count 273 X10^3/uL (150-400) 01/14/24 12:25 Medications: Current Medications Generic Name Dose Route Start Last Admin Trade Name Freq PRN Reason Stop Dose Admin Acetaminophen 650 mg 01/14/24 11:25 Acetaminophen 325 Mg Tablet PO Q4HR PRN Fever/Mild Pain (1-3) Acetaminophen 650 mg 01/15/24 10:19 Acetaminophen 325 Mg Tablet PO Q6HR PRN Pain, Mild (1-3) Hydrocodone Bitart/Acetaminophen 1 tab 01/15/24 10:19 Hydrocodone/Acet 5/325 Tablet PO Q4HR PRN Pain, Moderate (4-6) Carboprost Tromethamine 250 mcg 01/15/24 10:19 Carboprost 250 Mcg/Ml Ampul IM Q90MIN PRN Bleeding Oxytocin/Lactated Ringer's 30 unit in 500 mls @ 200 mls/hr 01/15/24 10:19 Oxytocin Premix IV CONT PRN Bleeding Protocol Tranexamic Acid 1,000 mg/ 100 mls @ 200 mls/hr 01/15/24 10:19 Sodium Chloride IV NOW PRN Bleeding Clindamycin Phosphate 900 mg in 50 mls @ 50 mls/hr 01/15/24 11:02 01/15/24 11:24 Cleocin IV 01/15/24 12:01 50 mls/hr NOW ONE Administration Ibuprofen 600 mg 01/16/24 10:19 Ibuprofen 600 Mg Tablet PO Q6HR PRN Pain, Mild (1-3) Ketorolac Tromethamine 30 mg 01/15/24 10:19 Ketorolac 30 Mg/Ml Vial IV 01/16/24 04:20 Q6H ROWAN Methylergonovine Maleate 0.2 mg 01/15/24 10:19 Methylergonovine 0.2 Mg Tablet PO Q6HR PRN Heavy bleeding Methylergonovine Maleate 0.2 mg 01/15/24 10:19 Methylergonovine 0.2 Mg/Ml Vial IM NOW PRN Bleeding Misoprostol 1,000 mcg 01/15/24 10:19 Misoprostol 200 Mcg Tablet NM NOW PRN Bleeding Misoprostol 400 mcg 01/15/24 10:19 Misoprostol 200 Mcg Tablet SL NOW PRN Bleeding Misoprostol 800 mcg 01/15/24 10:19 Misoprostol 200 Mcg Tablet NM NOW PRN Bleeding Naloxone HCl 0.2 mg 01/15/24 10:19 Naloxone 0.4 Mg/Ml Vial IV Q2MIN PRN Opiate Reversal Oxytocin 10 unit 01/15/24 10:19 Oxytocin 10 Unit/Ml Vial IM NOW PRN Bleeding Allergies: Allergies Allergy/AdvReac Type Severity Reaction Status Date / Time No Known Drug Allergies Allergy Unverified 01/07/24 14:37 Post-procedure Anesthesia date END: 01/15/24 Anesthesia time END: 11:45 Post-procedure Anesthesia Assessment: Yes CV function: HR/BP stable, Yes Resp function: RR/sat/airway adequate, Yes Post-op hydration adequate, Yes Pain control adequate, Yes Nausea & vomiting absent, Yes Temperature > 36 C and Yes Mental status appropriate
[2024-01-15] MEDS: GENTAMICIN 300 MG in SODIUM CHLORIDE 0.9% 100 ML 107.5 MG IV (12:50)
[2024-01-15] MEDS: KETOROLAC 30 MG/ML VIAL IV (16:17)
--- NOTE | 2024-01-15 17:35 | PATH_ITS ---
[facility] Accession Number: [id number] No. of containers..01 Tissue . 01 Material submitted: . placenta - PLACENTA . 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 - Negative for villitis, thrombosis, and neoplasia. Marginally inserted membrans. - Negative for chorioamnionitis or meconium staining. Single artery umbilical cord. - Negative for true knots, funisitis, and thrombosis. V 01/20/2024 1647 Local . 01 Electronically signed: . Carrie Palomino MD, Pathologist NPI- [id number] . 01 Gross description: . Received in formalin with two identifiers and placenta, is a discoid stevens placenta with a trimmed weight of 173 grams and measuring 12.4 x 11.5 x 1.5 cm with no accessory lobes identified. . The membranes are min and translucent with min areas of thickening occupying approximately 10% of the membrane surface. They insert at the margin and have a point of rupture 0.9 cm from the nearest placental disc edge. . The cord measures 64.2 cm in length by 0.9 cm in average diameter and is diffusely congested. A partial thickness defect exposing the lumen is identified located 2.0 cm from the placental insertion. The cord inserts centrally and has rightward coil with an index of approximately 5 twists per 5 cm, and sectioning reveals bivascular architecture with no knots or lesions identified. . The maternal surface is blue-purple with normal arborizing vasculature and a ring of min presumed fibrous material at the membrane insertion occupying approximately half of the placental disc edge. No additional lesions are identified. . The maternal surface is possibly incomplete with a ragged hole exposing the surface membrane measuring 3.5 x 2.5 cm and occupying approximately 20% of the maternal surface. The remaining maternal surface is unremarkable with no adherent hemorrhage or lesions identified. Sectioning reveals a red to brown, spongy cut surface with no discoloration or lesions identified. . Engineering Program Manager sections are submitted as follows: A1: Membrane roll and placental end of cord with area of defect. A2: Membrane roll and end of cord. A3: Peripheral surface discoloration. A4-A6: Central full thickness unremarkable sections. Photographs taken. ([id number]) /ESTEBAN 01/16/2024 [facility] Local . 01 Pathologist provided ICD-10: O43.90 . 01 CPT . 816752 Specimen Comment: A courtesy copy of this report has been sent to [phone] Performed at: 01 [facility] [address] [place] [address], [place], [place] [id number] MD Tucker Davis MD Phone: [phone]
--- NOTE | 2024-01-15 17:50 | P.DS_ITS ---
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 Patient last detected movement on the evening of 01/05/2024 and ultrasound subsequently confirmed intrauterine demise. Patient's course has been largely unremarkable with normal cell free DNA studies showing a low risk male after her 20 week anatomy scan showed a 2 vessel umbilical cord. The remainder of the anatomic survey was normal and growth has been appropriate to date. Patient underwent induction of labor with low-dose buccal misoprostol secondary to profound intolerance to vaginal exam/vaginismus. Patient received epidural for analgesia. On morning of HD2 further augmentation of labor was undertaken with AROM at 4cm cervical dilation followed by initiation of IV pitocin augmentation. Patient rapidly developed a strong urge to push and on vaginal exam the head was noted at the perineum. AGA male fetus delivered intact, noted umbilical cord hematoma as per delivery documentation most consistent with cord accident. Spontaneous delivery of placenta, hemostatic first degree perineal tear without indication for repair. Pt received single dose IV gent/clinda for endometritis prophylaxis. She was able to void spontaneously following discontinuation of epidural, ambulating independently. Per strong maternal preference patient was discharged to home on PPD0 with strict pain, bleeding and infection precautions. Status at Discharge Cognitive/behavioral status at discharge: oriented and at baseline, oriented Functional status at discharge: independent ambulation Overall status at discharge: patient is back to baseline Time Spent with Patient Time spent: Greater than 30 minutes Objective Labs 01/14/24 12:25 [facility] Medical History (Updated 01/14/24 @ 21:26 by Gerald Lauren MD) Acne (~2009) Anxiety Radial styloid tenosynovitis (~2020) Vaginismus Healthy adult Surgical History (Updated 08/19/23 @ 09:05 by Vannessa Henderson RN) No pertinent past surgical history Family History (Updated 10/26/23 @ 20:52 by Rosie Sagastume) Mother Hypothyroidism Sister Hyperthyroidism Grandfather Heart attack Hyperlipidemia Father Hyperlipidemia Social History marital status: number of children: 0 household members: spouse lives independently: Yes caregiver/support person: No housing: house pets and animals: Yes (2 small dogs) education level: college occupational status: employed current occupational exposures/hazards: No special nathaniel needs: No travel history: recent seatbelt use: always helmet use: Yes water heater temp set < 120 deg: Yes working smoke detector in home: Yes fire extinguisher in home: Yes carbon monox detector in home: Yes firearms in home: No do you feel safe at home: Yes Smoking Status: Never smoker second hand exposure: No alcohol intake: former substance use type: does not use during the past year weight has: remained stable well-balanced diet: rarely or never daily servings fruits/ve-1 caffeine: Yes (aware of 200mg limit) Type(s) of exercise: none Discharge Assessment & Plan Assessment and Plan Assessment: 28yo PPD0 s/p medically induced PTSVD of IUFD at 26wga Plan of Treatment: DC to home with strict infection, bleeding and pain precautions Mood precautions reviewed F/u 1wk in office with Dr. Austin Discharge Plan Discharge Plan Patient Disposition: Home Discharge orders & Medications Prescriptions: New acetaminophen 325 mg Tablet 650 mg PO Q4HR PRN (Reason: Fever/Mild Pain (1-3)) Qty: 30 0RF ibuprofen 600 mg Tablet 600 mg PO Q6HR PRN (Reason: Pain, Mild (1-3)) Qty: 60 0RF Continued sertraline 25 mg tablet 25 mg PO DAILY Qty: 30 2RF Discontinued vit-ferrous sulfat-FA 27 mg iron- 0.8 mg tablet PO Follow up/Referrals: ProviderCarleen [Primary Care Provider] - Diet/Activity/Treatments Diet: Regular Visit Report/Discharge Packet Stand Alone Forms: Patient Portal/API, Stroke Signs & Symptoms Discharge Data Primary Care Provider: Carleen Juarez Attending Provider: Hailey Austin Admit Date/Time: 01/14/24 11:15 [place] Charge Codes Discharge inpatient/observation: [id number]
== END 2024-01-15 18:55 | disposition home or self-care (01) | DRG 807 ==
PROVIDERS: Specialist; Admitting Provider Family Medicine; Referring Provider Family Medicine; Visit Provider Family Medicine
DX: O36.4XX0 Maternal care for intrauterine death, not applicable or unspecified (principal); Z37.1 Single stillbirth; Z3A.26 26 weeks gestation of pregnancy; O69.5XX0 Labor and delivery complicated by vascular lesion of cord, not applicable or unspecified; O69.89X0 Labor and delivery complicated by other cord complications, not applicable or unspecified
CPT/HCPCS: 36415; 59200; 59400; 59409; 80305; 85025; G0378; G0379; J1885

== ENCOUNTER → 2024-02-10 10:34 | Outpatient (CLI) | payer OTHER, SELFPAY ==
[2024-02-10 11:41] LABS: Free T4, Direct Thyroxine 1.14 ng/dL (0.78-2.19)
[2024-02-10 11:56] LABS: Thyroid Stimulating Hormone 1.01 uIU/mL (0.47-4.68)
[2024-02-10 12:00] LABS: Progesterone, Total 1.26 ng/mL
== END ==
PROVIDERS: Referring Provider Family Medicine; Visit Provider Family Medicine
DX: O36.4XX0 Maternal care for intrauterine death, not applicable or unspecified (principal)
CPT/HCPCS: 36415; 81240; 81241; 81291; 83520; 84144; 84439; 84443; 85598; 85613; 86147; 86148

== ENCOUNTER 2025-06-23 09:00 | Outpatient (RCR) | payer OTHER, SELFPAY ==
--- NOTE | 2024-04-21 16:00 | PT.OIE ---
Current Diagnoses Unspecified dyspareunia (04/21/24) Pelvic and perineal pain (04/21/24) Past Medical History (Last Updated 10/26/23 @ 20:51 by Rosie Sagastume) Acne (~2009) Anxiety Healthy adult Radial styloid tenosynovitis (~2020) Vaginismus Past Surgical History (Last Updated 08/19/23 @ 09:05 by Vannessa Henderson RN) No pertinent past surgical history Visit Care Team Role Provider Type Tommyy CARMEN Provider Primary Care Provider Non-Staff Specialty: Medical Address: Phone: Email: DAYNA Chaudhry Attending Provider Non-Staff Referring Provider Specialty: Nursing Address: [address] [place] [address], [id number] Email: Physical Therapy Initial Evaluation PT-OP-A Visit Information Start: 04/21/24 14:18 Freq: Status: Active Protocol: Document 04/21/24 14:28 [facility] (Rec: 04/21/24 15:06 [facility] [id number]) Out-Patient Physical Therapy Visit Information Visit Information Visit Type Initial Evaluation Visit Start Time 14:28 Visit Stop Time 15:15 Visit Number 1 Evaluation Information Evaluation Date 04/21/24 PT-OP-B Current Condition Start: 04/21/24 14:18 Freq: Status: Active Protocol: Document 04/21/24 14:30 [facility] (Rec: 04/21/24 15:06 [facility] [id number]) Current Condition History of Current Condition Onset Date chronic pelvic pain Current Complaints pelvic floor tension and involuntary clenching, dysparunia History of Current Condition 28 year old female who underwent a medically induced PTSVD of IUFD at 26 weeks gestation on 01/15/24. She presents to PT with pelvic and perineal pain and dyspareunia . She reports she has always had her pain when trying to use tampons she feels she cant relax the area enough. She would like to be able to have a pap smear as she has only attempted and had a bad experience. This is a little better since her delivery. PT-OP-C Subjective Start: 04/21/24 14:18 Freq: Status: Active Protocol: Document 04/21/24 14:30 [facility] (Rec: 04/22/24 12:59 [facility] [id number]) Patient Questionnaires Pelvic Pain and Urgency/Frequency Patient Symptom Scale Pelvic Pain Score 10 OP-PT Pain Assessment Location pelvic pain Pain Location Details pelvic pain vaginally with intercourse or pelvic exam Intensity 4 Scale Used Numeric (0 - 10) Description Aching,Pressure,Sharp, Tightness Frequency Intermittent Pain Duration intercourse and pelvic exam PT-OP-F Manual Assessment Start: 04/21/24 14:18 Freq: Status: Active Protocol: Document 04/21/24 14:30 [facility] (Rec: 04/22/24 13:17 [facility] [id number]) Manual Assessments Soft Tissue Assessment Soft Tissue Mobility Assessment external assessment of pelvic floor reveals inability to lift the levator ani from a guarded position and Renee is not aware of a relaxed state verses a tightened state of her pelvic floor. PT-OP-I Pelvic Floor Start: 04/21/24 14:18 Freq: Status: Active Protocol: Document 04/21/24 14:30 [facility] (Rec: 04/22/24 12:59 [facility] [id number]) Pelvic Floor Assessment Urine Pelvic Floor Surgery No Contraction Ability Voluntary Contraction Weak Voluntary Relaxation Weak Comments Pelvic Floor Comments external pelvic floor was assessed today as Renee did not feel ready for internal pelvic floor exam. She has difficulty with any pelvic floor mobility and was unable to feel a pelvic floor contraction. She will benefit from EMG biofeedback to help with neuromuscular awareness of the pelvic floor PT-OP-Q Treatments Start: 04/21/24 14:18 Freq: Status: Active Protocol: Document 04/21/24 15:13 [facility] (Rec: 04/21/24 15:14 [facility] [id number]) Therapeutic Exercises Supine Exercises modified squat stretch Reps/Minutes hold 1-2 min Other Exercises alaina pose stretch Reps/Minutes hold 1-2 minutes Self-Care/Home Management Treatment Education Patient Education Home Exercise Program,Pain Management Caregiver Education Renee was given instructions on how to relax the pelvic floor and stretches to help open up the pelvis. She was given a size XS dilator to begin working at home on gently stretching the pelvic floor. PT-OP-T Assessment and Plan Start: 04/21/24 14:18 Freq: Status: Active Protocol: Document 04/21/24 14:30 [facility] (Rec: 04/22/24 12:59 [facility] [id number]) Physical Therapy Assessment Rehab Potential Rehabilitation Potential Excellent Evaluation Complexity Number of Personal Factors/Comorbidities 0 Number of Body Systems Impaired 1-2 Clinical Presentation at Evaluation Stable Impairments Impairments Activity Tolerance,Pain, Sensation,Soft Tissue Mobility ,Strength Other Impairments dyspareunia Goals 2 Impairment Pelvic floor pain rated 4/10 with dyspareunia Half-Way Goal (LTG) With education on pelvic floor relaxation and reduced tension Renee is able to be intimate with her without a increase in pain levels LTG Duration 12 weeks + 1 Impairment Tightness and guarding of the pelvic floor with inability to undergo a pap smear for routine exam and dyspareunia Short Term Goal (STG) Renee is educated on the use of progressive dilators to help reduce tension and improve mobility of the pelvic floor STG Duration 4 weeks Residential Child Care Counselor Goal (LTG) Renee is able to tolerate EMG biofeedback with a vaginal sensor to work on relaxed awareness of the pelvic floor and is able to tolerate a vaginal pelvic exam LTG Duration 8 weeks Assessment Summary Assessment Renee is a 28 year old female referred to PT with dysparunia and pelvic pain that is chronic in nature. She reports she has always experienced pelvic pain when trying to use tampons and with intercourse. She reports she has never been able to have a pap smear due to tension and pain. In January she underwent a medically induced PTSVD of IUFD at 26 weeks gestation. She notes as soon as she had a epidural she was relaxed to go through the vaginal delivery. She notes since this time her symptoms are slightly improved. Renee feels as if her pelvic floor is always tight and she has involuntary clenching. She would like to work on pelvic floor mobility so that she can have a pap smear and reduce her dysparunia. Pelvic floor was externally assessed today and Renee has a difficult time feeling a pelvic floor contraction or relaxation. She is a good candidate for EMG biofeedback for neuro re- education of her pelvic floor. We have a sensor that is small that I feel would work for her. She was given a size xs dilator to work with this week and if that goes well then we will do a trial of biofeedback and pelvic floor exam next visit. Renee is a good candidate for PT. Physical Therapy Plan Frequency and Duration Frequency of Treatment 1x/Week Duration of treatment (weeks) 12 Plan of Care Start Date 04/21/24 Plan of Care End Date 07/14/24 Therapeutic Interventions Therapeutic Interventions Home Exercise Program,Manual Therapy,Neuromuscular Re- education,Patient/Caregiver Education,Self-Care/Home Management,Soft Tissue Mobilization,Therapeutic Exercises Modalities Biofeedback Next Visit Focus/Plan Next Note Type Treatment Note Next Visit Plan pelvic floor internal assessment if Renee feels ready and trial of EMG biofeedback for neuromuscular awareness of the pelvic floor
--- NOTE | 2024-04-21 16:00 | PT.OPPOC ---
Physical, Occupational & Speech Therapy At [facility] Current Diagnoses Unspecified dyspareunia (04/21/24) Pelvic and perineal pain (04/21/24) Visit Care Team Role Provider Type Carleen MORALES Provider Primary Care Provider Non-Staff Specialty: Medical Address: Phone: Email: DAYNA Chaudhry Attending Provider Non-Staff Referring Provider Specialty: Nursing Address: [address] [place] [address], [id number] Email: Plan Of Care PT-OP-T Assessment and Plan Start: 04/21/24 14:18 Freq: Status: Active Protocol: Document 04/21/24 14:30 [facility] (Rec: 04/22/24 12:59 [facility] [id number]) Physical Therapy Assessment Rehab Potential Rehabilitation Potential Excellent Evaluation Complexity Number of Personal Factors/Comorbidities 0 Number of Body Systems Impaired 1-2 Clinical Presentation at Evaluation Stable Impairments Impairments Activity Tolerance,Pain, Sensation,Soft Tissue Mobility ,Strength Other Impairments dyspareunia Goals 2 Impairment Pelvic floor pain rated 4/10 with dyspareunia Director Marketing Goal (LTG) With education on pelvic floor relaxation and reduced tension Renee is able to be intimate with her without a increase in pain levels LTG Duration 12 weeks + 1 Impairment Tightness and guarding of the pelvic floor with inability to undergo a pap smear for routine exam and dyspareunia Short Term Goal (STG) Renee is educated on the use of progressive dilators to help reduce tension and improve mobility of the pelvic floor STG Duration 4 weeks Usp Goal (LTG) Renee is able to tolerate EMG biofeedback with a vaginal sensor to work on relaxed awareness of the pelvic floor and is able to tolerate a vaginal pelvic exam LTG Duration 8 weeks Assessment Summary Assessment Renee is a 28 year old female referred to PT with dysparunia and pelvic pain that is chronic in nature. She reports she has always experienced pelvic pain when trying to use tampons and with intercourse. She reports she has never been able to have a pap smear due to tension and pain. In January she underwent a medically induced PTSVD of IUFD at 26 weeks gestation. She notes as soon as she had a epidural she was relaxed to go through the vaginal delivery. She notes since this time her symptoms are slightly improved. Renee feels as if her pelvic floor is always tight and she has involuntary clenching. She would like to work on pelvic floor mobility so that she can have a pap smear and reduce her dysparunia. Pelvic floor was externally assessed today and Renee has a difficult time feeling a pelvic floor contraction or relaxation. She is a good candidate for EMG biofeedback for neuro re- education of her pelvic floor. We have a sensor that is small that I feel would work for her. She was given a size xs dilator to work with this week and if that goes well then we will do a trial of biofeedback and pelvic floor exam next visit. Renee is a good candidate for PT. Physical Therapy Plan Frequency and Duration Frequency of Treatment 1x/Week Duration of treatment (weeks) 12 Plan of Care Start Date 04/21/24 Plan of Care End Date 07/14/24 Therapeutic Interventions Therapeutic Interventions Home Exercise Program,Manual Therapy,Neuromuscular Re- education,Patient/Caregiver Education,Self-Care/Home Management,Soft Tissue Mobilization,Therapeutic Exercises Modalities Biofeedback Next Visit Focus/Plan Next Note Type Treatment Note Next Visit Plan pelvic floor internal assessment if Renee feels ready and trial of EMG biofeedback for neuromuscular awareness of the pelvic floor Plan of Care Dates Plan of Care Start Date 04/21/24 Plan of Care End Date 07/14/24 Electronically Signed by: Sarahi Caraballo, PT 04/22/24 8575 If you are in agreement with this Plan of Care, please return a signed and dated copy. I have reviewed this Plan of Care and certify that the skilled therapy services above are required to meet the patient?s needs. Physician Signature Date Printed Name and Credentials Clinical Instructor Signature Printed Name and Credentials
--- NOTE | 2024-04-28 16:26 | PT.OTN ---
Current Diagnoses Unspecified dyspareunia (04/28/24) Pelvic and perineal pain (04/28/24) Physical Therapy Treatment Note PT-OP-A Visit Information Start: 04/21/24 14:18 Freq: Status: Active Protocol: Document 04/21/24 14:28 [facility] (Rec: 04/21/24 15:06 [facility] [id number]) Out-Patient Physical Therapy Visit Information Visit Information Visit Type Initial Evaluation Visit Start Time 14:28 Visit Stop Time 15:15 Visit Number 1 Evaluation Information Evaluation Date 04/21/24 PT-OP-B Current Condition Start: 04/21/24 14:18 Freq: Status: Active Protocol: Document 04/21/24 14:30 [facility] (Rec: 04/21/24 15:06 [facility] [id number]) Current Condition History of Current Condition Onset Date chronic pelvic pain Current Complaints pelvic floor tension and involuntary clenching, dysparunia History of Current Condition 28 year old female who underwent a medically induced PTSVD of IUFD at 26 weeks gestation on 01/15/24. She presents to PT with pelvic and perineal pain and dyspareunia . She reports she has always had her pain when trying to use tampons she feels she cant relax the area enough. She would like to be able to have a pap smear as she has only attempted and had a bad experience. This is a little better since her delivery. PT-OP-C Subjective Start: 04/21/24 14:18 Freq: Status: Active Protocol: Document 04/28/24 15:21 [facility] (Rec: 04/28/24 16:26 [facility] [id number]) OP-PT Subjective Patient Comments Patient Comments pt notes she found a yoga channel for pelvic floor, able to get the xs dilator in 2 finger width. She has been working on her breathing and realizing that she was holding her breath PT-OP-F Manual Assessment Start: 04/21/24 14:18 Freq: Status: Active Protocol: Document 04/21/24 14:30 [facility] (Rec: 04/22/24 13:17 [facility] [id number]) Manual Assessments Soft Tissue Assessment Soft Tissue Mobility Assessment external assessment of pelvic floor reveals inability to lift the levator ani from a guarded position and Renee is not aware of a relaxed state verses a tightened state of her pelvic floor. PT-OP-I Pelvic Floor Start: 04/21/24 14:18 Freq: Status: Active Protocol: Document 04/21/24 14:30 [facility] (Rec: 04/22/24 12:59 [facility] [id number]) Pelvic Floor Assessment Urine Pelvic Floor Surgery No Contraction Ability Voluntary Contraction Weak Voluntary Relaxation Weak Comments Pelvic Floor Comments external pelvic floor was assessed today as Renee did not feel ready for internal pelvic floor exam. She has difficulty with any pelvic floor mobility and was unable to feel a pelvic floor contraction. She will benefit from EMG biofeedback to help with neuromuscular awareness of the pelvic floor PT-OP-Q Treatments Start: 04/21/24 14:18 Freq: Status: Active Protocol: Document 04/28/24 15:21 [facility] (Rec: 04/28/24 16:26 [facility] [id number]) Therapeutic Exercises Supine Exercises diaphragmatic breathing Reps/Minutes worked on 4 sec inhale 6 sec exhale Manual Therapy Treatment Consent Patient gave verbal consent for manual Yes treatment Soft Tissue Mobilization gluteal release B Body Position Prone Comments worked on releasing the gluteals B combining STM with manual hip IR/ER fascial Body Location fascial release of the abdominal wall and suprapubic fascia Comments tightness and guarding of the abdominal fascia and decreased ability to use the diaphraghm to belly breath Self-Care/Home Management Treatment Activities Self-Care/Home Management Activities Renee was given the rectal sensor to try vaginally today to attempt EMG biofeedback. She was not able to fully insert it. She was given it for home to work up to it and we will try again next visit PT-OP-T Assessment and Plan Start: 04/21/24 14:18 Freq: Status: Active Protocol: Document 04/28/24 15:21 [facility] (Rec: 04/28/24 16:26 [facility] [id number]) Physical Therapy Assessment Assessment Summary Assessment Renee has been working on stretches and diaphragmatic breathing at home. She has been trying the xs dialtor and has been able to insert it two knuckles length deep. She does hold a great deal of tension in the abdominal wall and diaphragmatic breathing is restricted. Physical Therapy Plan Frequency and Duration Frequency of Treatment 1x/Week Duration of treatment (weeks) 12 Plan of Care Start Date 04/21/24 Plan of Care End Date 07/14/24 Therapeutic Interventions Therapeutic Interventions Home Exercise Program,Manual Therapy,Neuromuscular Re- education,Patient/Caregiver Education,Self-Care/Home Management,Soft Tissue Mobilization,Therapeutic Exercises Modalities Biofeedback Next Visit Focus/Plan Next Note Type Treatment Note Next Visit Plan EMG biofeedback for pelvic floor resting tone with rectal sensor, continue with fascial work
--- NOTE | 2024-04-28 16:27 | PT.OTN ---
Current Diagnoses Unspecified dyspareunia (04/28/24) Pelvic and perineal pain (04/28/24) Physical Therapy Treatment Note PT-OP-A Visit Information Start: 04/21/24 14:18 Freq: Status: Active Protocol: Document 04/28/24 16:27 [facility] (Rec: 04/28/24 16:27 [facility] [id number]) Out-Patient Physical Therapy Visit Information Visit Information Visit Type Treatment Note Visit Start Time 15:20 Visit Stop Time 16:05 Visit Number 2 PT-OP-B Current Condition Start: 04/21/24 14:18 Freq: Status: Active Protocol: Document 04/21/24 14:30 [facility] (Rec: 04/21/24 15:06 [facility] [id number]) Current Condition History of Current Condition Onset Date chronic pelvic pain Current Complaints pelvic floor tension and involuntary clenching, dysparunia History of Current Condition 28 year old female who underwent a medically induced PTSVD of IUFD at 26 weeks gestation on 01/15/24. She presents to PT with pelvic and perineal pain and dyspareunia . She reports she has always had her pain when trying to use tampons she feels she cant relax the area enough. She would like to be able to have a pap smear as she has only attempted and had a bad experience. This is a little better since her delivery. PT-OP-C Subjective Start: 04/21/24 14:18 Freq: Status: Active Protocol: Document 04/28/24 15:21 [facility] (Rec: 04/28/24 16:26 [facility] [id number]) OP-PT Subjective Patient Comments Patient Comments pt notes she found a yoga channel for pelvic floor, able to get the xs dilator in 2 finger width. She has been working on her breathing and realizing that she was holding her breath PT-OP-F Manual Assessment Start: 04/21/24 14:18 Freq: Status: Active Protocol: Document 04/21/24 14:30 [facility] (Rec: 04/22/24 13:17 [facility] [id number]) Manual Assessments Soft Tissue Assessment Soft Tissue Mobility Assessment external assessment of pelvic floor reveals inability to lift the levator ani from a guarded position and Renee is not aware of a relaxed state verses a tightened state of her pelvic floor. PT-OP-I Pelvic Floor Start: 04/21/24 14:18 Freq: Status: Active Protocol: Document 04/21/24 14:30 [facility] (Rec: 04/22/24 12:59 [facility] [id number]) Pelvic Floor Assessment Urine Pelvic Floor Surgery No Contraction Ability Voluntary Contraction Weak Voluntary Relaxation Weak Comments Pelvic Floor Comments external pelvic floor was assessed today as Renee did not feel ready for internal pelvic floor exam. She has difficulty with any pelvic floor mobility and was unable to feel a pelvic floor contraction. She will benefit from EMG biofeedback to help with neuromuscular awareness of the pelvic floor PT-OP-Q Treatments Start: 04/21/24 14:18 Freq: Status: Active Protocol: Document 04/28/24 15:21 [facility] (Rec: 04/28/24 16:26 [facility] [id number]) Therapeutic Exercises Supine Exercises diaphragmatic breathing Reps/Minutes worked on 4 sec inhale 6 sec exhale Manual Therapy Treatment Consent Patient gave verbal consent for manual Yes treatment Soft Tissue Mobilization gluteal release B Body Position Prone Comments worked on releasing the gluteals B combining STM with manual hip IR/ER fascial Body Location fascial release of the abdominal wall and suprapubic fascia Comments tightness and guarding of the abdominal fascia and decreased ability to use the diaphraghm to belly breath Self-Care/Home Management Treatment Activities Self-Care/Home Management Activities Renee was given the rectal sensor to try vaginally today to attempt EMG biofeedback. She was not able to fully insert it. She was given it for home to work up to it and we will try again next visit PT-OP-T Assessment and Plan Start: 04/21/24 14:18 Freq: Status: Active Protocol: Document 04/28/24 15:21 [facility] (Rec: 04/28/24 16:26 [facility] [id number]) Physical Therapy Assessment Assessment Summary Assessment Renee has been working on stretches and diaphragmatic breathing at home. She has been trying the xs dialtor and has been able to insert it two knuckles length deep. She does hold a great deal of tension in the abdominal wall and diaphragmatic breathing is restricted. Physical Therapy Plan Frequency and Duration Frequency of Treatment 1x/Week Duration of treatment (weeks) 12 Plan of Care Start Date 04/21/24 Plan of Care End Date 07/14/24 Therapeutic Interventions Therapeutic Interventions Home Exercise Program,Manual Therapy,Neuromuscular Re- education,Patient/Caregiver Education,Self-Care/Home Management,Soft Tissue Mobilization,Therapeutic Exercises Modalities Biofeedback Next Visit Focus/Plan Next Note Type Treatment Note Next Visit Plan EMG biofeedback for pelvic floor resting tone with rectal sensor, continue with fascial work
--- NOTE | 2024-05-05 16:40 | PT.OTN ---
Current Diagnoses Unspecified dyspareunia (05/05/24) Pelvic and perineal pain (05/05/24) Physical Therapy Treatment Note PT-OP-A Visit Information Start: 04/21/24 14:18 Freq: Status: Active Protocol: Document 05/05/24 13:03 [facility] (Rec: 05/05/24 13:50 [facility] [id number]) Out-Patient Physical Therapy Visit Information Visit Information Visit Type Treatment Note Visit Start Time 13:00 Visit Stop Time 13:45 Visit Number 3 PT-OP-B Current Condition Start: 04/21/24 14:18 Freq: Status: Active Protocol: Document 04/21/24 14:30 [facility] (Rec: 04/21/24 15:06 [facility] [id number]) Current Condition History of Current Condition Onset Date chronic pelvic pain Current Complaints pelvic floor tension and involuntary clenching, dysparunia History of Current Condition 28 year old female who underwent a medically induced PTSVD of IUFD at 26 weeks gestation on 01/15/24. She presents to PT with pelvic and perineal pain and dyspareunia . She reports she has always had her pain when trying to use tampons she feels she cant relax the area enough. She would like to be able to have a pap smear as she has only attempted and had a bad experience. This is a little better since her delivery. PT-OP-C Subjective Start: 04/21/24 14:18 Freq: Status: Active Protocol: Document 05/05/24 13:03 [facility] (Rec: 05/05/24 13:50 [facility] [id number]) OP-PT Subjective Patient Comments Patient Comments pt notes she was able to get in the smallest diator from the [facility] PT-OP-F Manual Assessment Start: 04/21/24 14:18 Freq: Status: Active Protocol: Document 04/21/24 14:30 [facility] (Rec: 04/22/24 13:17 [facility] [id number]) Manual Assessments Soft Tissue Assessment Soft Tissue Mobility Assessment external assessment of pelvic floor reveals inability to lift the levator ani from a guarded position and Renee is not aware of a relaxed state verses a tightened state of her pelvic floor. PT-OP-I Pelvic Floor Start: 04/21/24 14:18 Freq: Status: Active Protocol: Document 04/21/24 14:30 [facility] (Rec: 04/22/24 12:59 [facility] [id number]) Pelvic Floor Assessment Urine Pelvic Floor Surgery No Contraction Ability Voluntary Contraction Weak Voluntary Relaxation Weak Comments Pelvic Floor Comments external pelvic floor was assessed today as Renee did not feel ready for internal pelvic floor exam. She has difficulty with any pelvic floor mobility and was unable to feel a pelvic floor contraction. She will benefit from EMG biofeedback to help with neuromuscular awareness of the pelvic floor PT-OP-Q Treatments Start: 04/21/24 14:18 Freq: Status: Active Protocol: Document 05/05/24 16:28 [facility] (Rec: 05/05/24 16:37 [facility] [id number]) Therapeutic Exercises Supine Exercises pelvic floor long holds Reps/Minutes 10 sec on 10 sec off Comments pt was able to almost fully have the rectal sensor inserted Manual Therapy Treatment Soft Tissue Mobilization external pelvic diaphraghm release Mobilization Type Myofascial Release Body Position Hooklying Comments worked on lifting the pelvic floor up and gently stretching side to side with exernal mobilization obturator internus release B Mobilization Type Myofascial Release Body Position Sidelying Comments left greater than right side obturator tightness Self-Care/Home Management Treatment Education Patient Education Home Exercise Program,Pain Management Other Education education on dilator use and gently stretching laterally with the dilator PT-OP-T Assessment and Plan Start: 04/21/24 14:18 Freq: Status: Active Protocol: Document 05/05/24 13:03 [facility] (Rec: 05/05/24 13:50 [facility] [id number]) Physical Therapy Assessment Assessment Summary Assessment pelvic floor resting tone 2.0 today and Renee tolerated contract relax well. She was able to feel herself contract a bit so EMG biofeedback will be helpful for her. She will continue to work with her dilator at home and next visit I will try some internal release Physical Therapy Plan Frequency and Duration Frequency of Treatment 1x/Week Duration of treatment (weeks) 12 Plan of Care Start Date 04/21/24 Plan of Care End Date 07/14/24 Therapeutic Interventions Therapeutic Interventions Home Exercise Program,Manual Therapy,Neuromuscular Re- education,Patient/Caregiver Education,Self-Care/Home Management,Soft Tissue Mobilization,Therapeutic Exercises Modalities Biofeedback Next Visit Focus/Plan Next Note Type Treatment Note Next Visit Plan EMG biofeedback for pelvic floor resting tone with rectal sensor, continue with fascial work, begin internal release of the levator ani
--- NOTE | 2024-05-14 17:02 | PT.OTN ---
Current Diagnoses Unspecified dyspareunia (05/12/24) Pelvic and perineal pain (05/12/24) Physical Therapy Treatment Note PT-OP-A Visit Information Start: 04/21/24 14:18 Freq: Status: Active Protocol: Document 05/12/24 13:00 [facility] (Rec: 05/14/24 17:02 [facility] [id number]) Out-Patient Physical Therapy Visit Information Visit Information Visit Type Treatment Note Visit Start Time 13:00 Visit Stop Time 13:45 Visit Number 4 PT-OP-B Current Condition Start: 04/21/24 14:18 Freq: Status: Active Protocol: Document 04/21/24 14:30 [facility] (Rec: 04/21/24 15:06 [facility] [id number]) Current Condition History of Current Condition Onset Date chronic pelvic pain Current Complaints pelvic floor tension and involuntary clenching, dysparunia History of Current Condition 28 year old female who underwent a medically induced PTSVD of IUFD at 26 weeks gestation on 01/15/24. She presents to PT with pelvic and perineal pain and dyspareunia . She reports she has always had her pain when trying to use tampons she feels she cant relax the area enough. She would like to be able to have a pap smear as she has only attempted and had a bad experience. This is a little better since her delivery. PT-OP-C Subjective Start: 04/21/24 14:18 Freq: Status: Active Protocol: Document 05/12/24 13:00 [facility] (Rec: 05/14/24 17:02 [facility] [id number]) OP-PT Subjective Patient Comments Patient Comments pt reports the smallest dilator is getting a little easier and she feels she is almost ready to try next size. She is not ready yet for internal work but possibly next visit PT-OP-F Manual Assessment Start: 04/21/24 14:18 Freq: Status: Active Protocol: Document 04/21/24 14:30 [facility] (Rec: 04/22/24 13:17 [facility] [id number]) Manual Assessments Soft Tissue Assessment Soft Tissue Mobility Assessment external assessment of pelvic floor reveals inability to lift the levator ani from a guarded position and Renee is not aware of a relaxed state verses a tightened state of her pelvic floor. PT-OP-I Pelvic Floor Start: 04/21/24 14:18 Freq: Status: Active Protocol: Document 04/21/24 14:30 [facility] (Rec: 04/22/24 12:59 [facility] [id number]) Pelvic Floor Assessment Urine Pelvic Floor Surgery No Contraction Ability Voluntary Contraction Weak Voluntary Relaxation Weak Comments Pelvic Floor Comments external pelvic floor was assessed today as Renee did not feel ready for internal pelvic floor exam. She has difficulty with any pelvic floor mobility and was unable to feel a pelvic floor contraction. She will benefit from EMG biofeedback to help with neuromuscular awareness of the pelvic floor PT-OP-Q Treatments Start: 04/21/24 14:18 Freq: Status: Active Protocol: Document 05/12/24 13:00 [facility] (Rec: 05/14/24 17:02 [facility] [id number]) Manual Therapy Treatment Soft Tissue Mobilization adductor release B Body Location B adducotrs Mobilization Type Myofascial Release Intensity/Depth Moderate Body Position Hooklying Comments worked on adductor release B and both were very tight and guarded obturator internus release B Mobilization Type Myofascial Release Body Position Sidelying Comments left greater than right side obturator tightness PT-OP-T Assessment and Plan Start: 04/21/24 14:18 Freq: Status: Active Protocol: Document 05/12/24 13:00 [facility] (Rec: 05/14/24 17:02 [facility] [id number]) Physical Therapy Assessment Assessment Summary Assessment adductor release B was helpful and I gave Renee cues to try and not cross her legs at rest as this tightness the adductors. She was given instructions to try and mobilize her tissue with the dilators gently to stertch side fisher Physical Therapy Plan Frequency and Duration Frequency of Treatment 1x/Week Duration of treatment (weeks) 12 Plan of Care Start Date 04/21/24 Plan of Care End Date 07/14/24 Therapeutic Interventions Therapeutic Interventions Home Exercise Program,Manual Therapy,Neuromuscular Re- education,Patient/Caregiver Education,Self-Care/Home Management,Soft Tissue Mobilization,Therapeutic Exercises Modalities Biofeedback Next Visit Focus/Plan Next Note Type Treatment Note Next Visit Plan EMG biofeedback for pelvic floor resting tone with rectal sensor, continue with fascial work, begin internal release of the levator ani
--- NOTE | 2024-06-04 16:54 | PT.OTN ---
Current Diagnoses Unspecified dyspareunia (06/04/24) Pelvic and perineal pain (06/04/24) Physical Therapy Treatment Note PT-OP-A Visit Information Start: 04/21/24 14:18 Freq: Status: Active Protocol: Document 06/04/24 09:03 [facility] (Rec: 06/04/24 09:47 [facility] [id number]) Out-Patient Physical Therapy Visit Information Visit Information Visit Type Treatment Note Visit Start Time 09:03 Visit Stop Time 09:45 Visit Number 5 PT-OP-B Current Condition Start: 04/21/24 14:18 Freq: Status: Active Protocol: Document 04/21/24 14:30 [facility] (Rec: 04/21/24 15:06 [facility] [id number]) Current Condition History of Current Condition Onset Date chronic pelvic pain Current Complaints pelvic floor tension and involuntary clenching, dysparunia History of Current Condition 28 year old female who underwent a medically induced PTSVD of IUFD at 26 weeks gestation on 01/15/24. She presents to PT with pelvic and perineal pain and dyspareunia . She reports she has always had her pain when trying to use tampons she feels she cant relax the area enough. She would like to be able to have a pap smear as she has only attempted and had a bad experience. This is a little better since her delivery. PT-OP-C Subjective Start: 04/21/24 14:18 Freq: Status: Active Protocol: Document 06/04/24 09:03 [facility] (Rec: 06/04/24 09:47 [facility] [id number]) OP-PT Subjective Patient Comments Patient Comments Renee notes she was able to move up in sensor size and she was able to do the clocking on the left side and she felt more tension on the PT-OP-F Manual Assessment Start: 04/21/24 14:18 Freq: Status: Active Protocol: Document 04/21/24 14:30 [facility] (Rec: 04/22/24 13:17 [facility] [id number]) Manual Assessments Soft Tissue Assessment Soft Tissue Mobility Assessment external assessment of pelvic floor reveals inability to lift the levator ani from a guarded position and Renee is not aware of a relaxed state verses a tightened state of her pelvic floor. PT-OP-I Pelvic Floor Start: 04/21/24 14:18 Freq: Status: Active Protocol: Document 04/21/24 14:30 [facility] (Rec: 04/22/24 12:59 [facility] [id number]) Pelvic Floor Assessment Urine Pelvic Floor Surgery No Contraction Ability Voluntary Contraction Weak Voluntary Relaxation Weak Comments Pelvic Floor Comments external pelvic floor was assessed today as Renee did not feel ready for internal pelvic floor exam. She has difficulty with any pelvic floor mobility and was unable to feel a pelvic floor contraction. She will benefit from EMG biofeedback to help with neuromuscular awareness of the pelvic floor PT-OP-Q Treatments Start: 04/21/24 14:18 Freq: Status: Active Protocol: Document 06/04/24 16:52 [facility] (Rec: 06/04/24 16:54 [facility] [id number]) Manual Therapy Treatment Soft Tissue Mobilization obturator internus release B Mobilization Type Myofascial Release Body Position Sidelying Comments left greater than right side obturator tightness gluteal release B Body Position Prone Comments worked on releasing the gluteals B combining STM with manual hip IR/ER, worked on skin rolling and fascial release around the ischium B PT-OP-T Assessment and Plan Start: 04/21/24 14:18 Freq: Status: Active Protocol: Document 06/04/24 16:52 [facility] (Rec: 06/04/24 16:54 [facility] [id number]) Physical Therapy Assessment Assessment Summary Assessment pt is showing improvement and has moved up on her dilator size, she will continue working on increasing tolerance to the dilator and next visit try MFR for the pelvic floor Physical Therapy Plan Frequency and Duration Frequency of Treatment 1x/Week Duration of treatment (weeks) 12 Plan of Care Start Date 04/21/24 Plan of Care End Date 07/14/24 Therapeutic Interventions Therapeutic Interventions Home Exercise Program,Manual Therapy,Neuromuscular Re- education,Patient/Caregiver Education,Self-Care/Home Management,Soft Tissue Mobilization,Therapeutic Exercises Modalities Biofeedback Next Visit Focus/Plan Next Note Type Treatment Note Next Visit Plan EMG biofeedback for pelvic floor resting tone with rectal sensor, continue with fascial work, begin internal release of the levator ani
--- NOTE | 2024-06-10 12:41 | PT.OTN ---
Current Diagnoses Unspecified dyspareunia (06/10/24) Pelvic and perineal pain (06/10/24) Physical Therapy Treatment Note PT-OP-A Visit Information Start: 04/21/24 14:18 Freq: Status: Active Protocol: Document 06/10/24 09:45 [facility] (Rec: 06/10/24 12:34 [facility] [id number]) Out-Patient Physical Therapy Visit Information Visit Information Visit Type Treatment Note Visit Start Time 09:45 Visit Stop Time 10:30 Visit Number 6 PT-OP-B Current Condition Start: 04/21/24 14:18 Freq: Status: Active Protocol: Document 04/21/24 14:30 [facility] (Rec: 04/21/24 15:06 [facility] [id number]) Current Condition History of Current Condition Onset Date chronic pelvic pain Current Complaints pelvic floor tension and involuntary clenching, dysparunia History of Current Condition 28 year old female who underwent a medically induced PTSVD of IUFD at 26 weeks gestation on 01/15/24. She presents to PT with pelvic and perineal pain and dyspareunia . She reports she has always had her pain when trying to use tampons she feels she cant relax the area enough. She would like to be able to have a pap smear as she has only attempted and had a bad experience. This is a little better since her delivery. PT-OP-C Subjective Start: 04/21/24 14:18 Freq: Status: Active Protocol: Document 06/10/24 09:51 [facility] (Rec: 06/10/24 10:31 [facility] [id number]) OP-PT Subjective Patient Comments Patient Comments pt has been doing all the yoga and added in the figure 4 stretch PT-OP-F Manual Assessment Start: 04/21/24 14:18 Freq: Status: Active Protocol: Document 04/21/24 14:30 [facility] (Rec: 04/22/24 13:17 [facility] [id number]) Manual Assessments Soft Tissue Assessment Soft Tissue Mobility Assessment external assessment of pelvic floor reveals inability to lift the levator ani from a guarded position and Renee is not aware of a relaxed state verses a tightened state of her pelvic floor. PT-OP-I Pelvic Floor Start: 04/21/24 14:18 Freq: Status: Active Protocol: Document 04/21/24 14:30 [facility] (Rec: 04/22/24 12:59 [facility] [id number]) Pelvic Floor Assessment Urine Pelvic Floor Surgery No Contraction Ability Voluntary Contraction Weak Voluntary Relaxation Weak Comments Pelvic Floor Comments external pelvic floor was assessed today as Renee did not feel ready for internal pelvic floor exam. She has difficulty with any pelvic floor mobility and was unable to feel a pelvic floor contraction. She will benefit from EMG biofeedback to help with neuromuscular awareness of the pelvic floor PT-OP-Q Treatments Start: 04/21/24 14:18 Freq: Status: Active Protocol[facility] Document 06/10/24 09:45 [facility] (Rec: 06/10/24 12:34 [facility] [id number]) Manual Therapy Treatment Soft Tissue Mobilization fascial release at the ischium B Body Location MFR Comments worked on hamstring and adductor attachments at the ischium obturator internus release B Mobilization Type Myofascial Release Body Position Prone gluteal release B Body Location MFR Body Position Prone Comments worked on releasing the gluteals B combining STM with manual hip IR/ER, worked on skin rolling and fascial release around the ischium B PT-OP-T Assessment and Plan Start: 04/21/24 14:18 Freq: Status: Active Protocol: Document 06/10/24 09:51 [facility] (Rec: 06/10/24 10:31 [facility] [id number]) Physical Therapy Assessment Assessment Summary Assessment left greater than right side gluteal tightness and Renee has noticed left sided tightness when using the dilators as well. She was menstruating today so internal fascial work was not performed Physical Therapy Plan Frequency and Duration Frequency of Treatment 1x/Week Duration of treatment (weeks) 12 Plan of Care Start Date 04/21/24 Plan of Care End Date 07/14/24 Therapeutic Interventions Therapeutic Interventions Home Exercise Program,Manual Therapy,Neuromuscular Re- education,Patient/Caregiver Education,Self-Care/Home Management,Soft Tissue Mobilization,Therapeutic Exercises Modalities Biofeedback Next Visit Focus/Plan Next Note Type Treatment Note Next Visit Plan EMG biofeedback for pelvic floor resting tone with rectal sensor, continue with fascial work, begin internal release of the levator ani
--- NOTE | 2024-06-24 12:43 | PT.OTN ---
Current Diagnoses Unspecified dyspareunia (06/24/24) Pelvic and perineal pain (06/24/24) Physical Therapy Treatment Note PT-OP-A Visit Information Start: 04/21/24 14:18 Freq: Status: Active Protocol: Document 06/24/24 09:47 [facility] (Rec: 06/24/24 10:32 [facility] [id number]) Out-Patient Physical Therapy Visit Information Visit Information Visit Type Treatment Note Visit Start Time 09:45 Visit Stop Time 10:30 Visit Number 7 PT-OP-B Current Condition Start: 04/21/24 14:18 Freq: Status: Active Protocol: Document 04/21/24 14:30 [facility] (Rec: 04/21/24 15:06 [facility] [id number]) Current Condition History of Current Condition Onset Date chronic pelvic pain Current Complaints pelvic floor tension and involuntary clenching, dysparunia History of Current Condition 28 year old female who underwent a medically induced PTSVD of IUFD at 26 weeks gestation on 01/15/24. She presents to PT with pelvic and perineal pain and dyspareunia . She reports she has always had her pain when trying to use tampons she feels she cant relax the area enough. She would like to be able to have a pap smear as she has only attempted and had a bad experience. This is a little better since her delivery. PT-OP-C Subjective Start: 04/21/24 14:18 Freq: Status: Active Protocol: Document 06/24/24 09:47 [facility] (Rec: 06/24/24 10:32 [facility] [id number]) OP-PT Subjective Patient Comments Patient Comments has been doing yoga every day, she can go further in the stretches and with the dilator she is still betwen the 1st- 2nd size she is doing 20 min a day of the yoga and has been trying her kewi massager. PT-OP-F Manual Assessment Start: 04/21/24 14:18 Freq: Status: Active Protocol: Document 04/21/24 14:30 [facility] (Rec: 04/22/24 13:17 [facility] [id number]) Manual Assessments Soft Tissue Assessment Soft Tissue Mobility Assessment external assessment of pelvic floor reveals inability to lift the levator ani from a guarded position and Renee is not aware of a relaxed state verses a tightened state of her pelvic floor. PT-OP-I Pelvic Floor Start: 04/21/24 14:18 Freq: Status: Active Protocol: Document 04/21/24 14:30 [facility] (Rec: 04/22/24 12:59 [facility] [id number]) Pelvic Floor Assessment Urine Pelvic Floor Surgery No Contraction Ability Voluntary Contraction Weak Voluntary Relaxation Weak Comments Pelvic Floor Comments external pelvic floor was assessed today as Renee did not feel ready for internal pelvic floor exam. She has difficulty with any pelvic floor mobility and was unable to feel a pelvic floor contraction. She will benefit from EMG biofeedback to help with neuromuscular awareness of the pelvic floor PT-OP-Q Treatments Start: 04/21/24 14:18 Freq: Status: Active Protocol: Document 06/24/24 12:39 [facility] (Rec: 06/24/24 12:40 [facility] [id number]) Manual Therapy Treatment Soft Tissue Mobilization Transverse perineal release Mobilization Type Myofascial Release Intensity/Depth Moderate Body Position Hooklying Comments tightness B, Renee was able to tolerate this well adductor release B Body Location B adducotrs Mobilization Type Myofascial Release Intensity/Depth Moderate Body Position Hooklying Comments worked on adductor release B and both were very tight and guarded external pelvic diaphraghm release Mobilization Type Myofascial Release Body Position Hooklying Comments worked on lifting the pelvic floor up and gently stretching side to side with exernal mobilization PT-OP-T Assessment and Plan Start: 04/21/24 14:18 Freq: Status: Active Protocol: Document 06/24/24 09:47 [facility] (Rec: 06/24/24 10:32 [facility] [id number]) Physical Therapy Assessment Assessment Summary Assessment Worked on external pelvic floor release with the transverse perineal muscles and pelvic diaphraghm. Renee tolerated this well and has been working on relaxed awareness of the pelvic floor. Physical Therapy Plan Frequency and Duration Frequency of Treatment 1x/Week Duration of treatment (weeks) 12 Plan of Care Start Date 04/21/24 Plan of Care End Date 07/14/24 Therapeutic Interventions Therapeutic Interventions Home Exercise Program,Manual Therapy,Neuromuscular Re- education,Patient/Caregiver Education,Self-Care/Home Management,Soft Tissue Mobilization,Therapeutic Exercises Modalities Biofeedback Next Visit Focus/Plan Next Note Type Treatment Note Next Visit Plan EMG biofeedback for pelvic floor resting tone with rectal sensor, continue with fascial work as Renee can tolerate
--- NOTE | 2024-07-02 14:54 | PT.OTN ---
Current Diagnoses Unspecified dyspareunia (07/02/24) Pelvic and perineal pain (07/02/24) Physical Therapy Treatment Note PT-OP-A Visit Information Start: 04/21/24 14:18 Freq: Status: Active Protocol: Document 07/02/24 13:02 [facility] (Rec: 07/02/24 13:07 [facility] [id number]) Out-Patient Physical Therapy Visit Information Visit Information Visit Type Treatment Note Visit Start Time 13:00 Visit Stop Time 13:45 Visit Number 8 PT-OP-B Current Condition Start: 04/21/24 14:18 Freq: Status: Active Protocol: Document 04/21/24 14:30 [facility] (Rec: 04/21/24 15:06 [facility] [id number]) Current Condition History of Current Condition Onset Date chronic pelvic pain Current Complaints pelvic floor tension and involuntary clenching, dysparunia History of Current Condition 28 year old female who underwent a medically induced PTSVD of IUFD at 26 weeks gestation on 01/15/24. She presents to PT with pelvic and perineal pain and dyspareunia . She reports she has always had her pain when trying to use tampons she feels she cant relax the area enough. She would like to be able to have a pap smear as she has only attempted and had a bad experience. This is a little better since her delivery. PT-OP-C Subjective Start: 04/21/24 14:18 Freq: Status: Active Protocol: Document 07/02/24 13:02 [facility] (Rec: 07/02/24 13:07 [facility] [id number]) OP-PT Subjective Patient Comments Patient Comments Renee did her yoga every day and dilated three times and got back up to the second size dilator and with time she was able to do that. Patient Reported Progress Improving PT-OP-F Manual Assessment Start: 04/21/24 14:18 Freq: Status: Active Protocol: Document 04/21/24 14:30 [facility] (Rec: 04/22/24 13:17 [facility] [id number]) Manual Assessments Soft Tissue Assessment Soft Tissue Mobility Assessment external assessment of pelvic floor reveals inability to lift the levator ani from a guarded position and Renee is not aware of a relaxed state verses a tightened state of her pelvic floor. PT-OP-I Pelvic Floor Start: 04/21/24 14:18 Freq: Status: Active Protocol: Document 04/21/24 14:30 [facility] (Rec: 04/22/24 12:59 [facility] [id number]) Pelvic Floor Assessment Urine Pelvic Floor Surgery No Contraction Ability Voluntary Contraction Weak Voluntary Relaxation Weak Comments Pelvic Floor Comments external pelvic floor was assessed today as Renee did not feel ready for internal pelvic floor exam. She has difficulty with any pelvic floor mobility and was unable to feel a pelvic floor contraction. She will benefit from EMG biofeedback to help with neuromuscular awareness of the pelvic floor PT-OP-Q Treatments Start: 04/21/24 14:18 Freq: Status: Active Protocol: Document 07/02/24 13:00 [facility] (Rec: 07/02/24 14:52 [facility] [id number]) Manual Therapy Treatment Soft Tissue Mobilization Transverse perineal release Mobilization Type Myofascial Release Intensity/Depth Moderate Body Position Hooklying Comments tightness B, Renee was able to tolerate this well fascial release at the ischium B Body Location MFR Comments worked on hamstring and adductor attachments at the ischium adductor release B Body Location B adducotrs Mobilization Type Myofascial Release Intensity/Depth Moderate Body Position Hooklying Comments worked on adductor release B and both were very tight and guarded external pelvic diaphraghm release Mobilization Type Myofascial Release Body Position Hooklying Comments worked on lifting the pelvic floor up and gently stretching side to side with exernal mobilization PT-OP-T Assessment and Plan Start: 04/21/24 14:18 Freq: Status: Active Protocol: Document 07/02/24 13:02 [facility] (Rec: 07/02/24 13:07 [facility] [id number]) Physical Therapy Assessment Assessment Summary Assessment Good tolerance for manual therapy work today, left sided adductor tightness is greater than right side, give xs dilator instructions for self massage for the left pelvic floor wall now that it is easier to insert. Continue working on progression of dilator size Physical Therapy Plan Frequency and Duration Frequency of Treatment 1x/Week Duration of treatment (weeks) 12 Plan of Care Start Date 04/21/24 Plan of Care End Date 07/14/24 Therapeutic Interventions Therapeutic Interventions Home Exercise Program,Manual Therapy,Neuromuscular Re- education,Patient/Caregiver Education,Self-Care/Home Management,Soft Tissue Mobilization,Therapeutic Exercises Modalities Biofeedback Next Visit Focus/Plan Next Note Type Treatment Note Next Visit Plan EMG biofeedback for pelvic floor resting tone with rectal sensor, continue with fascial work as Renee can tolerate
--- NOTE | 2024-07-07 16:32 | PT.OTN ---
Current Diagnoses Unspecified dyspareunia (07/07/24) Pelvic and perineal pain (07/07/24) Physical Therapy Treatment Note PT-OP-A Visit Information Start: 04/21/24 14:18 Freq: Status: Active Protocol: Document 07/07/24 09:52 [facility] (Rec: 07/07/24 09:56 [facility] [id number]) Out-Patient Physical Therapy Visit Information Visit Information Visit Type Treatment Note Visit Start Time 09:50 Visit Stop Time 10:30 Visit Number 9 PT-OP-B Current Condition Start: 04/21/24 14:18 Freq: Status: Active Protocol: Document 04/21/24 14:30 [facility] (Rec: 04/21/24 15:06 [facility] [id number]) Current Condition History of Current Condition Onset Date chronic pelvic pain Current Complaints pelvic floor tension and involuntary clenching, dysparunia History of Current Condition 28 year old female who underwent a medically induced PTSVD of IUFD at 26 weeks gestation on 01/15/24. She presents to PT with pelvic and perineal pain and dyspareunia . She reports she has always had her pain when trying to use tampons she feels she cant relax the area enough. She would like to be able to have a pap smear as she has only attempted and had a bad experience. This is a little better since her delivery. PT-OP-C Subjective Start: 04/21/24 14:18 Freq: Status: Active Protocol: Document 07/07/24 09:52 [facility] (Rec: 07/07/24 09:56 [facility] [id number]) OP-PT Subjective Patient Comments Patient Comments Renee dietrichports she is on her period this week. SHe will focus on her yoga this week PT-OP-F Manual Assessment Start: 04/21/24 14:18 Freq: Status: Active Protocol: Document 04/21/24 14:30 [facility] (Rec: 04/22/24 13:17 [facility] [id number]) Manual Assessments Soft Tissue Assessment Soft Tissue Mobility Assessment external assessment of pelvic floor reveals inability to lift the levator ani from a guarded position and Renee is not aware of a relaxed state verses a tightened state of her pelvic floor. PT-OP-I Pelvic Floor Start: 04/21/24 14:18 Freq: Status: Active Protocol: Document 04/21/24 14:30 [facility] (Rec: 04/22/24 12:59 [facility] [id number]) Pelvic Floor Assessment Urine Pelvic Floor Surgery No Contraction Ability Voluntary Contraction Weak Voluntary Relaxation Weak Comments Pelvic Floor Comments external pelvic floor was assessed today as Renee did not feel ready for internal pelvic floor exam. She has difficulty with any pelvic floor mobility and was unable to feel a pelvic floor contraction. She will benefit from EMG biofeedback to help with neuromuscular awareness of the pelvic floor PT-OP-Q Treatments Start: 04/21/24 14:18 Freq: Status: Active Protocol: Document 07/07/24 09:52 [facility] (Rec: 07/07/24 09:56 [facility] [id number]) Manual Therapy Treatment Soft Tissue Mobilization fascial release at the ischium B Body Location MFR Comments worked on hamstring and adductor attachments at the ischium gluteal release B Body Location MFR Body Position Prone Comments worked on releasing the gluteals B combining STM with manual hip IR/ER, worked on skin rolling and fascial release around the ischium B PT-OP-T Assessment and Plan Start: 04/21/24 14:18 Freq: Status: Active Protocol: Document 07/07/24 16:29 [facility] (Rec: 07/07/24 16:31 [facility] [id number]) Physical Therapy Assessment Assessment Summary Assessment I worked on the gluteal attachments to the sacrum and ischium today, left greater than right sided tightness. Renee was on her period so we did not attempt EMG biofeedback. She is feeling that she is able to do more with her deep hip stretches with yoga Physical Therapy Plan Frequency and Duration Frequency of Treatment 1x/Week Duration of treatment (weeks) 12 Plan of Care Start Date 04/21/24 Plan of Care End Date 07/14/24 Therapeutic Interventions Therapeutic Interventions Home Exercise Program,Manual Therapy,Neuromuscular Re- education,Patient/Caregiver Education,Self-Care/Home Management,Soft Tissue Mobilization,Therapeutic Exercises Modalities Biofeedback Next Visit Focus/Plan Next Note Type Treatment Note Next Visit Plan EMG biofeedback for pelvic floor resting tone with rectal sensor, continue with fascial work as Renee can tolerate
--- NOTE | 2024-08-05 12:38 | PT.OTN ---
Current Diagnoses Unspecified dyspareunia (08/05/24) Pelvic and perineal pain (08/05/24) Physical Therapy Treatment Note PT-OP-A Visit Information Start: 04/21/24 14:18 Freq: Status: Active Protocol: Document 08/05/24 11:34 [facility] (Rec: 08/05/24 12:36 [facility] [id number]) Out-Patient Physical Therapy Visit Information Visit Information Visit Type Progress Note Visit Start Time 11:30 Visit Stop Time 12:15 Visit Number 10 PT-OP-B Current Condition Start: 04/21/24 14:18 Freq: Status: Active Protocol: Document 04/21/24 14:30 [facility] (Rec: 04/21/24 15:06 [facility] [id number]) Current Condition History of Current Condition Onset Date chronic pelvic pain Current Complaints pelvic floor tension and involuntary clenching, dysparunia History of Current Condition 28 year old female who underwent a medically induced PTSVD of IUFD at 26 weeks gestation on 01/15/24. She presents to PT with pelvic and perineal pain and dyspareunia . She reports she has always had her pain when trying to use tampons she feels she cant relax the area enough. She would like to be able to have a pap smear as she has only attempted and had a bad experience. This is a little better since her delivery. PT-OP-C Subjective Start: 04/21/24 14:18 Freq: Status: Active Protocol: Document 08/05/24 11:34 [facility] (Rec: 08/05/24 12:36 [facility] [id number]) OP-PT Subjective Patient Comments Patient Comments able to move up a size three dilator PT-OP-F Manual Assessment Start: 04/21/24 14:18 Freq: Status: Active Protocol: Document 04/21/24 14:30 [facility] (Rec: 04/22/24 13:17 [facility] [id number]) Manual Assessments Soft Tissue Assessment Soft Tissue Mobility Assessment external assessment of pelvic floor reveals inability to lift the levator ani from a guarded position and Renee is not aware of a relaxed state verses a tightened state of her pelvic floor. PT-OP-I Pelvic Floor Start: 04/21/24 14:18 Freq: Status: Active Protocol: Document 04/21/24 14:30 [facility] (Rec: 04/22/24 12:59 [facility] [id number]) Pelvic Floor Assessment Urine Pelvic Floor Surgery No Contraction Ability Voluntary Contraction Weak Voluntary Relaxation Weak Comments Pelvic Floor Comments external pelvic floor was assessed today as Renee did not feel ready for internal pelvic floor exam. She has difficulty with any pelvic floor mobility and was unable to feel a pelvic floor contraction. She will benefit from EMG biofeedback to help with neuromuscular awareness of the pelvic floor PT-OP-Q Treatments Start: 04/21/24 14:18 Freq: Status: Active Protocol: Document 08/05/24 11:34 [facility] (Rec: 08/05/24 12:36 [facility] [id number]) Therapeutic Exercises Other Exercises vertical foam roll stretch Reps/Minutes hold 1-2 min horizontal placement of foam roll for thoracic stretching Reps/Minutes 2 min foam rolling for fascial tightness Other Exercise Name worked on gluteals, piriformis , quads, ITB, adductors with foam roll Manual Therapy Treatment Soft Tissue Mobilization adductor release B Body Location B adducotrs Mobilization Type Myofascial Release Intensity/Depth Moderate Body Position Hooklying Comments worked on adductor release B, Renee is much more relaxed in her adductors today than previous visits gluteal release B Body Location MFR Body Position Prone Comments worked on releasing the gluteals B combining STM with manual hip IR/ER, worked on skin rolling and fascial release around the ischium B PT-OP-T Assessment and Plan Start: 04/21/24 14:18 Freq: Status: Active Protocol: Document 08/05/24 11:34 [facility] (Rec: 08/05/24 12:36 [facility] [id number]) Physical Therapy Assessment Goals 2 Impairment Pelvic floor pain rated 4/10 with dyspareunia 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 She is working at home on stretches to help reduce pelvic floor tension and is progressively working towards larger size dilators to stretch the vaginal wall. She is feeling encouraged that she is up to a size 3 dilator now and can feel her pelvic floor relax. Her has been on deployment since she started PT and he is set to return early September. Renee would benefit from continued PT Physical Therapy Plan Frequency and Duration Frequency of Treatment 1x/Week Duration of treatment (weeks) 12 Plan of Care Start Date 08/05/24 Plan of Care End Date 10/28/24 Therapeutic Interventions Therapeutic Interventions Home Exercise Program,Manual Therapy,Neuromuscular Re- education,Patient/Caregiver Education,Self-Care/Home Management,Soft Tissue Mobilization,Therapeutic Exercises Modalities Biofeedback Next Visit Focus/Plan Next Note Type Treatment Note Next Visit Plan trial of vaginal sensor next visit as Renee has been able to move up in dialator size at home
--- NOTE | 2024-08-05 12:39 | PT.OPPOC ---
Physical, Occupational & Speech Therapy At [facility] Current Diagnoses Unspecified dyspareunia (08/05/24) Pelvic and perineal pain (08/05/24) Visit Care Team Role Provider Type Carleen MORALES Provider Primary Care Provider Non-Staff Specialty: Medical Address: Phone: Email: DAYNA Chaudhry Attending Provider Non-Staff Referring Provider Specialty: Nursing Address: [address] [place] [address], [id number] Email: Plan Of Care PT-OP-B Current Condition Start: 04/21/24 14:18 Freq: Status: Active Protocol: Document 04/21/24 14:30 [facility] (Rec: 04/21/24 15:06 [facility] [id number]) Current Condition History of Current Condition Onset Date chronic pelvic pain Current Complaints pelvic floor tension and involuntary clenching, dysparunia History of Current Condition 28 year old female who underwent a medically induced PTSVD of IUFD at 26 weeks gestation on 01/15/24. She presents to PT with pelvic and perineal pain and dyspareunia . She reports she has always had her pain when trying to use tampons she feels she cant relax the area enough. She would like to be able to have a pap smear as she has only attempted and had a bad experience. This is a little better since her delivery. 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 Her is still deployed and will return early September LTG Duration 12 weeks + 1 Impairment Tightness and guarding of the pelvic floor with inability to undergo a pap smear for routine exam and dyspareunia Short Term Goal (STG) Renee is educated on the use of progressive dilators to help reduce tension and improve mobility of the pelvic floor excellent progress as Renee is up to size 3 dilator STG Duration 4 weeks [facility] Goal (LTG) Renee is able to tolerate EMG biofeedback with a vaginal sensor to work on relaxed awareness of the pelvic floor and is able to tolerate a vaginal pelvic exam Renee has been using the rectal sensor vaginally however she is feeling ready to try the vaginal sensor next visit LTG Duration 8 weeks Assessment Summary Assessment overall Renee has been making good progress with PT. She is working at home on stretches to help reduce pelvic floor tension and is progressively working towards larger size dilators to stretch the vaginal wall. She is feeling encouraged that she is up to a size 3 dilator now and can feel her pelvic floor relax. Her has been on deployment since she started PT and he is set to return early September. Renee would benefit from continued PT Physical Therapy Plan Frequency and Duration Frequency of Treatment 1x/Week Duration of treatment (weeks) 12 Plan of Care Start Date 08/05/24 Plan of Care End Date 10/28/24 Therapeutic Interventions Therapeutic Interventions Home Exercise Program,Manual Therapy,Neuromuscular Re- education,Patient/Caregiver Education,Self-Care/Home Management,Soft Tissue Mobilization,Therapeutic Exercises Modalities Biofeedback Next Visit Focus/Plan Next Note Type Treatment Note Next Visit Plan trial of vaginal sensor next visit as Renee has been able to move up in dilator size at home Plan of Care Dates Plan of Care Start Date 08/05/24 Plan of Care End Date 10/28/24 Electronically Signed by: Sarahi Caraballo, PT 08/05/24 [id number] If you are in agreement with this Plan of Care, please return a signed and dated copy. I have reviewed this Plan of Care and certify that the skilled therapy services above are required to meet the patient?s needs. Physician Signature Date Printed Name and Credentials Clinical Instructor Signature Printed Name and Credentials
--- NOTE | 2024-08-12 12:30 | PT.OTN ---
Current Diagnoses Unspecified dyspareunia (08/12/24) Pelvic and perineal pain (08/12/24) Physical Therapy Treatment Note PT-OP-A Visit Information Start: 04/21/24 14:18 Freq: Status: Active Protocol: Document 08/12/24 11:37 [facility] (Rec: 08/12/24 12:29 [facility] [id number]) Out-Patient Physical Therapy Visit Information Visit Information Visit Type Treatment Note Visit Start Time 11:30 Visit Stop Time 12:15 Visit Number 11 PT-OP-B Current Condition Start: 04/21/24 14:18 Freq: Status: Active Protocol: Document 04/21/24 14:30 [facility] (Rec: 04/21/24 15:06 [facility] [id number]) Current Condition History of Current Condition Onset Date chronic pelvic pain Current Complaints pelvic floor tension and involuntary clenching, dysparunia History of Current Condition 28 year old female who underwent a medically induced PTSVD of IUFD at 26 weeks gestation on 01/15/24. She presents to PT with pelvic and perineal pain and dyspareunia . She reports she has always had her pain when trying to use tampons she feels she cant relax the area enough. She would like to be able to have a pap smear as she has only attempted and had a bad experience. This is a little better since her delivery. PT-OP-C Subjective Start: 04/21/24 14:18 Freq: Status: Active Protocol: Document 08/12/24 11:37 [facility] (Rec: 08/12/24 12:29 [facility] [id number]) OP-PT Subjective Patient Comments Patient Comments pt has been doing her stretches and foam rolling to help relax the pelvic floor PT-OP-F Manual Assessment Start: 04/21/24 14:18 Freq: Status: Active Protocol: Document 04/21/24 14:30 [facility] (Rec: 04/22/24 13:17 [facility] [id number]) Manual Assessments Soft Tissue Assessment Soft Tissue Mobility Assessment external assessment of pelvic floor reveals inability to lift the levator ani from a guarded position and Renee is not aware of a relaxed state verses a tightened state of her pelvic floor. PT-OP-I Pelvic Floor Start: 04/21/24 14:18 Freq: Status: Active Protocol: Document 04/21/24 14:30 [facility] (Rec: 04/22/24 12:59 [facility] [id number]) Pelvic Floor Assessment Urine Pelvic Floor Surgery No Contraction Ability Voluntary Contraction Weak Voluntary Relaxation Weak Comments Pelvic Floor Comments external pelvic floor was assessed today as Renee did not feel ready for internal pelvic floor exam. She has difficulty with any pelvic floor mobility and was unable to feel a pelvic floor contraction. She will benefit from EMG biofeedback to help with neuromuscular awareness of the pelvic floor PT-OP-Q Treatments Start: 04/21/24 14:18 Freq: Status: Active Protocol: Document 08/12/24 11:37 [facility] (Rec: 08/12/24 12:29 [facility] [id number]) Manual Therapy Treatment Soft Tissue Mobilization fascial release at the introitus Body Location pelvic floor Mobilization Type Myofascial Release Comments manual release at the introitus bilaterally with gentle stretching. Renee tolerated this well Transverse perineal release Mobilization Type Myofascial Release Intensity/Depth Moderate Body Position Hooklying Comments tightness B, Renee was able to tolerate this well PT-OP-T Assessment and Plan Start: 04/21/24 14:18 Freq: Status: Active Protocol: Document 08/12/24 11:37 [facility] (Rec: 08/12/24 12:29 [facility] [id number]) Physical Therapy Assessment Assessment Summary Assessment I worked today on manual release at the introitus as well as the transverse perineal musculature and I was able to do more than I have been previously. Physical Therapy Plan Frequency and Duration Frequency of Treatment 1x/Week Duration of treatment (weeks) 12 Plan of Care Start Date 08/05/24 Plan of Care End Date 10/28/24 Therapeutic Interventions Therapeutic Interventions Home Exercise Program,Manual Therapy,Neuromuscular Re- education,Patient/Caregiver Education,Self-Care/Home Management,Soft Tissue Mobilization,Therapeutic Exercises Modalities Biofeedback Next Visit Focus/Plan Next Note Type Treatment Note Next Visit Plan Work on EMG biofeedback next visit with vaginal sensor, continue work to manually release the pelvic floor
--- NOTE | 2024-08-19 12:31 | PT.OTN ---
Current Diagnoses Unspecified dyspareunia (08/19/24) Pelvic and perineal pain (08/19/24) Physical Therapy Treatment Note PT-OP-A Visit Information Start: 04/21/24 14:18 Freq: Status: Active Protocol: Document 08/19/24 11:32 [facility] (Rec: 08/19/24 12:31 [facility] [id number]) Out-Patient Physical Therapy Visit Information Visit Information Visit Type Treatment Note Visit Start Time 11:32 Visit Stop Time 12:15 Visit Number 12 PT-OP-B Current Condition Start: 04/21/24 14:18 Freq: Status: Active Protocol: Document 04/21/24 14:30 [facility] (Rec: 04/21/24 15:06 [facility] [id number]) Current Condition History of Current Condition Onset Date chronic pelvic pain Current Complaints pelvic floor tension and involuntary clenching, dysparunia History of Current Condition 28 year old female who underwent a medically induced PTSVD of IUFD at 26 weeks gestation on 01/15/24. She presents to PT with pelvic and perineal pain and dyspareunia . She reports she has always had her pain when trying to use tampons she feels she cant relax the area enough. She would like to be able to have a pap smear as she has only attempted and had a bad experience. This is a little better since her delivery. PT-OP-C Subjective Start: 04/21/24 14:18 Freq: Status: Active Protocol: Document 08/19/24 11:32 [facility] (Rec: 08/19/24 12:31 [facility] [id number]) OP-PT Subjective Patient Comments Patient Comments pt moved up to number 4 after she had done her stretches PT-OP-F Manual Assessment Start: 04/21/24 14:18 Freq: Status: Active Protocol: Document 04/21/24 14:30 [facility] (Rec: 04/22/24 13:17 [facility] [id number]) Manual Assessments Soft Tissue Assessment Soft Tissue Mobility Assessment external assessment of pelvic floor reveals inability to lift the levator ani from a guarded position and Renee is not aware of a relaxed state verses a tightened state of her pelvic floor. PT-OP-I Pelvic Floor Start: 04/21/24 14:18 Freq: Status: Active Protocol: Document 04/21/24 14:30 [facility] (Rec: 04/22/24 12:59 [facility] [id number]) Pelvic Floor Assessment Urine Pelvic Floor Surgery No Contraction Ability Voluntary Contraction Weak Voluntary Relaxation Weak Comments Pelvic Floor Comments external pelvic floor was assessed today as Renee did not feel ready for internal pelvic floor exam. She has difficulty with any pelvic floor mobility and was unable to feel a pelvic floor contraction. She will benefit from EMG biofeedback to help with neuromuscular awareness of the pelvic floor PT-OP-Q Treatments Start: 04/21/24 14:18 Freq: Status: Active Protocol: Document 08/19/24 11:32 [facility] (Rec: 08/19/24 12:31 [facility] [id number]) Manual Therapy Treatment Soft Tissue Mobilization fascial release at the introitus Body Location pelvic floor Mobilization Type Myofascial Release Comments manual release at the introitus bilaterally with gentle stretching. Renee tolerated this well Transverse perineal release Mobilization Type Myofascial Release Intensity/Depth Moderate Body Position Hooklying Comments tightness B, Renee was able to tolerate this well fascial release at the ischium B Body Location MFR Comments worked on hamstring and adductor attachments at the ischium adductor release B Body Location B adducotrs Mobilization Type Myofascial Release Intensity/Depth Moderate Body Position Hooklying Comments worked on adductor release B external pelvic diaphraghm release Mobilization Type Myofascial Release Body Position Hooklying Comments worked on lifting the pelvic floor up and gently stretching side to side with exernal mobilization PT-OP-T Assessment and Plan Start: 04/21/24 14:18 Freq: Status: Active Protocol: Document 08/19/24 11:32 [facility] (Rec: 08/19/24 12:31 [facility] [id number]) Physical Therapy Assessment Assessment Summary Assessment pt was given a vaginal sensor to work with inserting for home and once she is able to use that then we will resume the biofeedback. She continues to make progress with improved ability to tolerate increased sizes with dilators and is now on size 4 Physical Therapy Plan Frequency and Duration Frequency of Treatment 1x/Week Duration of treatment (weeks) 12 Plan of Care Start Date 08/05/24 Plan of Care End Date 10/28/24 Therapeutic Interventions Therapeutic Interventions Home Exercise Program,Manual Therapy,Neuromuscular Re- education,Patient/Caregiver Education,Self-Care/Home Management,Soft Tissue Mobilization,Therapeutic Exercises Modalities Biofeedback Next Visit Focus/Plan Next Note Type Treatment Note Next Visit Plan Continue working towards pelvic floor relaxation with manual therapy techniques
--- NOTE | 2024-10-20 17:03 | PT.OTN ---
Current Diagnoses Unspecified dyspareunia (10/20/24) Pelvic and perineal pain (10/20/24) Physical Therapy Treatment Note PT-OP-A Visit Information Start: 04/21/24 14:18 Freq: Status: Active Protocol: Document 10/20/24 08:15 [facility] (Rec: 10/20/24 08:23 [facility] [id number]) Out-Patient Physical Therapy Visit Information Visit Information Visit Type Treatment Note Visit Start Time 08:15 Visit Stop Time 09:00 Visit Number 13 PT-OP-B Current Condition Start: 04/21/24 14:18 Freq: Status: Active Protocol: Document 04/21/24 14:30 [facility] (Rec: 04/21/24 15:06 [facility] [id number]) Current Condition History of Current Condition Onset Date chronic pelvic pain Current Complaints pelvic floor tension and involuntary clenching, dysparunia History of Current Condition 28 year old female who underwent a medically induced PTSVD of IUFD at 26 weeks gestation on 01/15/24. She presents to PT with pelvic and perineal pain and dyspareunia . She reports she has always had her pain when trying to use tampons she feels she cant relax the area enough. She would like to be able to have a pap smear as she has only attempted and had a bad experience. This is a little better since her delivery. PT-OP-C Subjective Start: 04/21/24 14:18 Freq: Status: Active Protocol: Document 10/20/24 08:15 [facility] (Rec: 10/20/24 08:23 [facility] [id number]) OP-PT Subjective Patient Comments Patient Comments Renee notes she has taken a break with her stretches and using the dilator since she has been traveling, she feels tight left gluteals and hamstrings after traveling. PT-OP-F Manual Assessment Start: 04/21/24 14:18 Freq: Status: Active Protocol: Document 04/21/24 14:30 [facility] (Rec: 04/22/24 13:17 [facility] [id number]) Manual Assessments Soft Tissue Assessment Soft Tissue Mobility Assessment external assessment of pelvic floor reveals inability to lift the levator ani from a guarded position and Renee is not aware of a relaxed state verses a tightened state of her pelvic floor. PT-OP-I Pelvic Floor Start: 04/21/24 14:18 Freq: Status: Active Protocol: Document 04/21/24 14:30 [facility] (Rec: 04/22/24 12:59 [facility] [id number]) Pelvic Floor Assessment Urine Pelvic Floor Surgery No Contraction Ability Voluntary Contraction Weak Voluntary Relaxation Weak Comments Pelvic Floor Comments external pelvic floor was assessed today as Renee did not feel ready for internal pelvic floor exam. She has difficulty with any pelvic floor mobility and was unable to feel a pelvic floor contraction. She will benefit from EMG biofeedback to help with neuromuscular awareness of the pelvic floor PT-OP-Q Treatments Start: 04/21/24 14:18 Freq: Status: Active Protocol: Document 10/20/24 08:15 [facility] (Rec: 10/20/24 17:03 [facility] [id number]) Manual Therapy Treatment Soft Tissue Mobilization fascial release at the ischium B Body Location MFR Comments worked on hamstring and adductor attachments at the ischium gluteal release B Body Location MFR Body Position Prone Comments worked on releasing the gluteals B combining STM with manual hip IR/ER, worked on skin rolling and fascial release around the ischium B Left side was tighter than the right so more time was spent on the left side PT-OP-T Assessment and Plan Start: 04/21/24 14:18 Freq: Status: Active Protocol: Document 10/20/24 08:15 [facility] (Rec: 10/20/24 17:03 [facility] [id number]) Physical Therapy Assessment Goals 2 Impairment Pelvic floor pain rated 4/10 with dyspareunia Penitentiary Goal (LTG) With education on pelvic floor relaxation and reduced tension Renee is able to be intimate with her without a increase in pain levels Renee is making good progress with being able to reduce tension in the pelvic floor, she is up to a size 4 dilator now and has been working on stretches to reduce pelvic tightness. some progress LTG Duration 12 weeks + 1 Impairment Tightness and guarding of the pelvic floor with inability to undergo a pap smear for routine exam and dyspareunia Short Term Goal (STG) Renee is educated on the use of progressive dilators to help reduce tension and improve mobility of the pelvic floor excellent progress as Renee is up to size 4 dilator STG Duration 4 weeks Penitentiary Goal (LTG) Renee is able to tolerate EMG biofeedback with a vaginal sensor to work on relaxed awareness of the pelvic floor and is able to tolerate a vaginal pelvic exam some progress LTG Duration 8 weeks Assessment Summary Assessment Renee has been progressing well with the dilators and has been able to move up to level 4. She hasn't been seen since August 19 as her came home after a 6 month deployment and they traveled out of the state to visit family. She notes she has been able to be intimate with her on 2 occasions. She was tight in her gluteals from traveling but she is doing better. She would benefit from continued PT working on pelvic floor relaxation with intimacy. Physical Therapy Plan Frequency and Duration Frequency of Treatment 1x/Week Duration of treatment (weeks) 12 Plan of Care Start Date 10/20/24 Plan of Care End Date 01/12/25 Therapeutic Interventions Therapeutic Interventions Home Exercise Program,Manual Therapy,Neuromuscular Re- education,Patient/Caregiver Education,Self-Care/Home Management,Soft Tissue Mobilization,Therapeutic Exercises Modalities Biofeedback Next Visit Focus/Plan Next Note Type Treatment Note Next Visit Plan Continue working towards pelvic floor relaxation with manual therapy techniques
--- NOTE | 2024-10-20 17:05 | PT.OPPOC ---
Physical, Occupational & Speech Therapy At [facility] Current Diagnoses Unspecified dyspareunia (10/20/24) Pelvic and perineal pain (10/20/24) Visit Care Team Role Provider Type Carleen MORALES Provider Primary Care Provider Non-Staff Specialty: Medical Address: Phone: Email: DAYNA Chaudhry Attending Provider Non-Staff Referring Provider Specialty: Nursing Address: [address] [place] [address], [id number] Email: Plan Of Care PT-OP-B Current Condition Start: 04/21/24 14:18 Freq: Status: Active Protocol: Document 04/21/24 14:30 [facility] (Rec: 04/21/24 15:06 [facility] [id number]) Current Condition History of Current Condition Onset Date chronic pelvic pain Current Complaints pelvic floor tension and involuntary clenching, dysparunia History of Current Condition 28 year old female who underwent a medically induced PTSVD of IUFD at 26 weeks gestation on 01/15/24. She presents to PT with pelvic and perineal pain and dyspareunia . She reports she has always had her pain when trying to use tampons she feels she cant relax the area enough. She would like to be able to have a pap smear as she has only attempted and had a bad experience. This is a little better since her delivery. PT-OP-T Assessment and Plan Start: 04/21/24 14:18 Freq: Status: Active Protocol: Document 10/20/24 08:15 [facility] (Rec: 10/20/24 17:03 [facility] [id number]) Physical Therapy Assessment Goals 2 Impairment Pelvic floor pain rated 4/10 with dyspareunia [employer] Goal (LTG) With education on pelvic floor relaxation and reduced tension Renee is able to be intimate with her without a increase in pain levels Renee is making good progress with being able to reduce tension in the pelvic floor, she is up to a size 4 dilator now and has been working on stretches to reduce pelvic tightness. some progress LTG Duration 12 weeks + 1 Impairment Tightness and guarding of the pelvic floor with inability to undergo a pap smear for routine exam and dyspareunia Short Term Goal (STG) Renee is educated on the use of progressive dilators to help reduce tension and improve mobility of the pelvic floor excellent progress as Renee is up to size 4 dilator STG Duration 4 weeks [employer] Goal (LTG) Renee is able to tolerate EMG biofeedback with a vaginal sensor to work on relaxed awareness of the pelvic floor and is able to tolerate a vaginal pelvic exam some progress LTG Duration 8 weeks Assessment Summary Assessment Renee has been progressing well with the dilators and has been able to move up to level 4. She hasn't been seen since August 19 as her came home after a 6 month deployment and they traveled out of the state to visit family. She notes she has been able to be intimate with her on 2 occasions. She was tight in her gluteals from traveling but she is doing better. She would benefit from continued PT working on pelvic floor relaxation with intimacy. Physical Therapy Plan Frequency and Duration Frequency of Treatment 1x/Week Duration of treatment (weeks) 12 Plan of Care Start Date 10/20/24 Plan of Care End Date 01/12/25 Therapeutic Interventions Therapeutic Interventions Home Exercise Program,Manual Therapy,Neuromuscular Re- education,Patient/Caregiver Education,Self-Care/Home Management,Soft Tissue Mobilization,Therapeutic Exercises Modalities Biofeedback Next Visit Focus/Plan Next Note Type Treatment Note Next Visit Plan Continue working towards pelvic floor relaxation with manual therapy techniques Plan of Care Dates Plan of Care Start Date 10/20/24 Plan of Care End Date 01/12/25 Electronically Signed by: Sarahi Caraballo, PT 10/20/24 1402 If you are in agreement with this Plan of Care, please return a signed and dated copy. I have reviewed this Plan of Care and certify that the skilled therapy services above are required to meet the patient?s needs. Physician Signature Date Printed Name and Credentials Clinical Instructor Signature Printed Name and Credentials
--- NOTE | 2024-11-03 16:14 | PT.OTN ---
Current Diagnoses Unspecified dyspareunia (11/03/24) Pelvic and perineal pain (11/03/24) Physical Therapy Treatment Note PT-OP-A Visit Information Start: 04/21/24 14:18 Freq: Status: Active Protocol: Document 11/03/24 16:07 [facility] (Rec: 11/03/24 16:10 [facility] [id number]) Out-Patient Physical Therapy Visit Information Visit Information Visit Type Treatment Note Visit Start Time 15:15 Visit Stop Time 16:00 Visit Number 14 Evaluation Information Evaluation Date 04/21/24 PT-OP-B Current Condition Start: 04/21/24 14:18 Freq: Status: Active Protocol: Document 04/21/24 14:30 [facility] (Rec: 04/21/24 15:06 [facility] [id number]) Current Condition History of Current Condition Onset Date chronic pelvic pain Current Complaints pelvic floor tension and involuntary clenching, dysparunia History of Current Condition 28 year old female who underwent a medically induced PTSVD of IUFD at 26 weeks gestation on 01/15/24. She presents to PT with pelvic and perineal pain and dyspareunia . She reports she has always had her pain when trying to use tampons she feels she cant relax the area enough. She would like to be able to have a pap smear as she has only attempted and had a bad experience. This is a little better since her delivery. PT-OP-C Subjective Start: 04/21/24 14:18 Freq: Status: Active Protocol: Document 11/03/24 15:17 [facility] (Rec: 11/03/24 15:23 [facility] [id number]) OP-PT Subjective Patient Comments Patient Comments pt has been dilator x 30 minutes prior to intercourse and it is easier she is on number 5, she starts at a 2 and works up to the 5 PT-OP-F Manual Assessment Start: 04/21/24 14:18 Freq: Status: Active Protocol: Document 04/21/24 14:30 [facility] (Rec: 04/22/24 13:17 [facility] [id number]) Manual Assessments Soft Tissue Assessment Soft Tissue Mobility Assessment external assessment of pelvic floor reveals inability to lift the levator ani from a guarded position and Renee is not aware of a relaxed state verses a tightened state of her pelvic floor. PT-OP-I Pelvic Floor Start: 04/21/24 14:18 Freq: Status: Active Protocol: Document 04/21/24 14:30 [facility] (Rec: 04/22/24 12:59 [facility] [id number]) Pelvic Floor Assessment Urine Pelvic Floor Surgery No Contraction Ability Voluntary Contraction Weak Voluntary Relaxation Weak Comments Pelvic Floor Comments external pelvic floor was assessed today as Renee did not feel ready for internal pelvic floor exam. She has difficulty with any pelvic floor mobility and was unable to feel a pelvic floor contraction. She will benefit from EMG biofeedback to help with neuromuscular awareness of the pelvic floor PT-OP-Q Treatments Start: 04/21/24 14:18 Freq: Status: Active Protocol: Document 11/03/24 16:07 [facility] (Rec: 11/03/24 16:10 [facility] [id number]) Manual Therapy Treatment Soft Tissue Mobilization Transverse perineal release Mobilization Type Myofascial Release Intensity/Depth Moderate Body Position Hooklying Comments tightness B, Renee was able to tolerate this well fascial release at the ischium B Body Location MFR Comments worked on hamstring and adductor attachments at the ischium adductor release B Body Location B adducotrs Mobilization Type Myofascial Release Intensity/Depth Moderate Body Position Hooklying Comments worked on adductor release B external pelvic diaphraghm release Mobilization Type Myofascial Release Body Position Hooklying Comments worked on lifting the pelvic floor up and gently stretching side to side with exernal mobilization. Left side feeling much more mobile now. obturator internus release B Mobilization Type Myofascial Release Body Position Prone PT-OP-T Assessment and Plan Start: 04/21/24 14:18 Freq: Status: Active Protocol: Document 11/03/24 15:17 [facility] (Rec: 11/03/24 15:23 [facility] [id number]) Physical Therapy Assessment Assessment Summary Assessment Renee is progressing well and onto level 5 now with her dilator. It still takes her a while to work up to the level 5 as she notes she starts with level 2. She has worked x 30 min with the dilator prior to intercourse and this has helped her. She notes the pain is decreased with intercourse but she is still not where she wants to be as far a comfort level. Physical Therapy Plan Frequency and Duration Frequency of Treatment 1x/Week Duration of treatment (weeks) 12 Plan of Care Start Date 10/20/24 Plan of Care End Date 01/12/25 Therapeutic Interventions Therapeutic Interventions Home Exercise Program,Manual Therapy,Neuromuscular Re- education,Patient/Caregiver Education,Self-Care/Home Management,Soft Tissue Mobilization,Therapeutic Exercises Modalities Biofeedback Next Visit Focus/Plan Next Note Type Treatment Note Next Visit Plan try EMG biofeedback next and continue working on manual therapy techniques
--- NOTE | 2024-11-11 11:05 | PT.OTN ---
Current Diagnoses Unspecified dyspareunia (11/11/24) Pelvic and perineal pain (11/11/24) Physical Therapy Treatment Note PT-OP-A Visit Information Start: 04/21/24 14:18 Freq: Status: Active Protocol: Document 11/11/24 08:17 [facility] (Rec: 11/11/24 08:22 [facility] [id number]) Out-Patient Physical Therapy Visit Information Visit Information Visit Type Treatment Note Visit Start Time 08:15 Visit Stop Time 09:00 Visit Number 15 PT-OP-B Current Condition Start: 04/21/24 14:18 Freq: Status: Active Protocol: Document 04/21/24 14:30 [facility] (Rec: 04/21/24 15:06 [facility] [id number]) Current Condition History of Current Condition Onset Date chronic pelvic pain Current Complaints pelvic floor tension and involuntary clenching, dysparunia History of Current Condition 28 year old female who underwent a medically induced PTSVD of IUFD at 26 weeks gestation on 01/15/24. She presents to PT with pelvic and perineal pain and dyspareunia . She reports she has always had her pain when trying to use tampons she feels she cant relax the area enough. She would like to be able to have a pap smear as she has only attempted and had a bad experience. This is a little better since her delivery. PT-OP-C Subjective Start: 04/21/24 14:18 Freq: Status: Active Protocol: Document 11/11/24 08:15 [facility] (Rec: 11/11/24 11:02 [facility] [id number]) OP-PT Subjective Patient Comments Patient Comments Renee reports she continues with her yoga and use of her dialtors, she is actively trying to become and she will take a test on Saturday Patient Reported Progress Improving PT-OP-F Manual Assessment Start: 04/21/24 14:18 Freq: Status: Active Protocol: Document 04/21/24 14:30 [facility] (Rec: 04/22/24 13:17 [facility] [id number]) Manual Assessments Soft Tissue Assessment Soft Tissue Mobility Assessment external assessment of pelvic floor reveals inability to lift the levator ani from a guarded position and Renee is not aware of a relaxed state verses a tightened state of her pelvic floor. PT-OP-I Pelvic Floor Start: 04/21/24 14:18 Freq: Status: Active Protocol: Document 04/21/24 14:30 [facility] (Rec: 04/22/24 12:59 [facility] [id number]) Pelvic Floor Assessment Urine Pelvic Floor Surgery No Contraction Ability Voluntary Contraction Weak Voluntary Relaxation Weak Comments Pelvic Floor Comments external pelvic floor was assessed today as Renee did not feel ready for internal pelvic floor exam. She has difficulty with any pelvic floor mobility and was unable to feel a pelvic floor contraction. She will benefit from EMG biofeedback to help with neuromuscular awareness of the pelvic floor PT-OP-Q Treatments Start: 04/21/24 14:18 Freq: Status: Active Protocol: Document 11/11/24 08:15 [facility] (Rec: 11/11/24 11:02 [facility] [id number]) Manual Therapy Treatment Soft Tissue Mobilization Transverse perineal release Mobilization Type Myofascial Release Intensity/Depth Moderate Body Position Hooklying Comments this is much better overall today, right >left sided tightness at the Transverse perineal muscle fascial release at the ischium B Body Location MFR Comments worked on hamstring and adductor attachments at the ischium and both side are feeling more relaxed adductor release B Body Location B adducotrs Mobilization Type Myofascial Release Intensity/Depth Moderate Body Position Hooklying Comments worked on adductor release B, both sides are feeling looser with L>R side tightness gluteal release B Body Location MFR Body Position Prone Comments worked on releasing the gluteals B combining STM with manual hip IR/ER, worked on skin rolling and fascial release around the ischium B Left side was tighter than the right so more time was spent on the left side PT-OP-T Assessment and Plan Start: 04/21/24 14:18 Freq: Status: Active Protocol: Document 11/11/24 08:17 [facility] (Rec: 11/11/24 08:22 [facility] [id number]) Physical Therapy Assessment Assessment Summary Assessment Renee was awaiting to take a test and will know next week if she is , We worked on external fascial release today and overall she is showing good progress with fascial tissue. Her left adductors still have some tension and left gluteals show tension but she is showing good overall improvement. She still is at level 5 on dilators and starts at a 2 each time she stretches and has to slowly move up to the 5 Physical Therapy Plan Frequency and Duration Frequency of Treatment 1x/Week Duration of treatment (weeks) 12 Plan of Care Start Date 10/20/24 Plan of Care End Date 01/12/25 Therapeutic Interventions Therapeutic Interventions Home Exercise Program,Manual Therapy,Neuromuscular Re- education,Patient/Caregiver Education,Self-Care/Home Management,Soft Tissue Mobilization,Therapeutic Exercises Modalities Biofeedback Next Visit Focus/Plan Next Note Type Treatment Note Next Visit Plan try EMG biofeedback next if pt is not and continue working on manual therapy techniques for improved pelvic floor mobility
--- NOTE | 2024-11-25 11:52 | PT.OTN ---
Current Diagnoses Unspecified dyspareunia (11/25/24) Pelvic and perineal pain (11/25/24) Physical Therapy Treatment Note PT-OP-A Visit Information Start: 04/21/24 14:18 Freq: Status: Active Protocol: Document 11/25/24 09:48 [facility] (Rec: 11/25/24 09:51 [facility] [id number]) Out-Patient Physical Therapy Visit Information Visit Information Visit Type Treatment Note Visit Start Time 09:46 Visit Stop Time 10:30 Visit Number 16 PT-OP-B Current Condition Start: 04/21/24 14:18 Freq: Status: Active Protocol: Document 04/21/24 14:30 [facility] (Rec: 04/21/24 15:06 [facility] [id number]) Current Condition History of Current Condition Onset Date chronic pelvic pain Current Complaints pelvic floor tension and involuntary clenching, dysparunia History of Current Condition 28 year old female who underwent a medically induced PTSVD of IUFD at 26 weeks gestation on 01/15/24. She presents to PT with pelvic and perineal pain and dyspareunia . She reports she has always had her pain when trying to use tampons she feels she cant relax the area enough. She would like to be able to have a pap smear as she has only attempted and had a bad experience. This is a little better since her delivery. PT-OP-C Subjective Start: 04/21/24 14:18 Freq: Status: Active Protocol: Document 11/25/24 09:48 [facility] (Rec: 11/25/24 09:51 [facility] [id number]) OP-PT Subjective Patient Comments Patient Comments Renee notes she is not , she was able to put in the vaginal sensor this week at home. It was a little painful taking it out, she would liek to try manual work first and then try the sensor today PT-OP-F Manual Assessment Start: 04/21/24 14:18 Freq: Status: Active Protocol: Document 04/21/24 14:30 [facility] (Rec: 04/22/24 13:17 [facility] [id number]) Manual Assessments Soft Tissue Assessment Soft Tissue Mobility Assessment external assessment of pelvic floor reveals inability to lift the levator ani from a guarded position and Renee is not aware of a relaxed state verses a tightened state of her pelvic floor. PT-OP-I Pelvic Floor Start: 04/21/24 14:18 Freq: Status: Active Protocol: Document 04/21/24 14:30 [facility] (Rec: 04/22/24 12:59 [facility] [id number]) Pelvic Floor Assessment Urine Pelvic Floor Surgery No Contraction Ability Voluntary Contraction Weak Voluntary Relaxation Weak Comments Pelvic Floor Comments external pelvic floor was assessed today as Renee did not feel ready for internal pelvic floor exam. She has difficulty with any pelvic floor mobility and was unable to feel a pelvic floor contraction. She will benefit from EMG biofeedback to help with neuromuscular awareness of the pelvic floor PT-OP-Q Treatments Start: 04/21/24 14:18 Freq: Status: Active Protocol: Document 11/25/24 09:45 [facility] (Rec: 11/25/24 10:35 [facility] [id number]) Therapeutic Exercises Supine Exercises hip ER/IR Reps/Minutes x 20 reps Comments pt felt more relaxation with legs extended for hip ER/IR pelvic floor long holds Supine Exercise Name average 8.2 at rest to start with 5.6 average after 10 reps went as low as Reps/Minutes 10 reps holding 10 seconds and resting 10 seconds Comments 10.8 average and 18.4 max 3 .2 was lowset for rest Manual Therapy Treatment Soft Tissue Mobilization Transverse perineal release Mobilization Type Myofascial Release Intensity/Depth Moderate Body Position Hooklying Comments this is much better overall today, right >left sided tightness at the Transverse perineal muscle fascial release at the ischium B Body Location MFR Comments worked on hamstring and adductor attachments at the ischium and both side are feeling more relaxed adductor release B Body Location B adducotrs Mobilization Type Myofascial Release Intensity/Depth Moderate Body Position Hooklying Comments worked on adductor release B, both sides are feeling looser with L>R side tightness PT-OP-T Assessment and Plan Start: 04/21/24 14:18 Freq: Status: Active Protocol: Document 11/25/24 09:45 [facility] (Rec: 11/25/24 11:50 [facility] [id number]) Physical Therapy Assessment Assessment Summary Assessment Today was the first day Renee was able to tolerate the vaginal sensor for EMG biofeedback. She presented with elevated tone at rest initially at a 6 uv With contract/relax of the levator ani she was able to reduce this to 3-4 uv. Hip ER/IR in supine also helped to relax the pelvic floor. I added pelvic floor contract/relax to her home program as well as hip IR/ER Physical Therapy Plan Frequency and Duration Frequency of Treatment 1x/Week Duration of treatment (weeks) 12 Plan of Care Start Date 10/20/24 Plan of Care End Date 01/12/25 Therapeutic Interventions Therapeutic Interventions Home Exercise Program,Manual Therapy,Neuromuscular Re- education,Patient/Caregiver Education,Self-Care/Home Management,Soft Tissue Mobilization,Therapeutic Exercises Modalities Biofeedback Next Visit Focus/Plan Next Note Type Treatment Note Next Visit Plan continue with manual therapy techniques and pelvic floor contract/relax with vaginal sensor working towards 2uv or less
--- NOTE | 2024-12-01 17:01 | PT.OTN ---
Current Diagnoses Unspecified dyspareunia (12/01/24) Pelvic and perineal pain (12/01/24) Physical Therapy Treatment Note PT-OP-A Visit Information Start: 04/21/24 14:18 Freq: Status: Active Protocol: Document 12/01/24 13:54 [facility] (Rec: 12/01/24 13:54 [facility] [id number]) Out-Patient Physical Therapy Visit Information Visit Information Visit Type Treatment Note Visit Start Time 13:50 Visit Stop Time 14:30 Visit Number 17 PT-OP-B Current Condition Start: 04/21/24 14:18 Freq: Status: Active Protocol: Document 04/21/24 14:30 [facility] (Rec: 04/21/24 15:06 [facility] [id number]) Current Condition History of Current Condition Onset Date chronic pelvic pain Current Complaints pelvic floor tension and involuntary clenching, dysparunia History of Current Condition 28 year old female who underwent a medically induced PTSVD of IUFD at 26 weeks gestation on 01/15/24. She presents to PT with pelvic and perineal pain and dyspareunia . She reports she has always had her pain when trying to use tampons she feels she cant relax the area enough. She would like to be able to have a pap smear as she has only attempted and had a bad experience. This is a little better since her delivery. PT-OP-C Subjective Start: 04/21/24 14:18 Freq: Status: Active Protocol: Document 12/01/24 13:49 [facility] (Rec: 12/01/24 13:54 [facility] [id number]) OP-PT Subjective Patient Comments Patient Comments pt notes she was consistent with dilatoing for the pelvic floor. She feels tighter on the left with dilating Patient Reported Progress Improving PT-OP-F Manual Assessment Start: 04/21/24 14:18 Freq: Status: Active Protocol: Document 04/21/24 14:30 [facility] (Rec: 04/22/24 13:17 [facility] [id number]) Manual Assessments Soft Tissue Assessment Soft Tissue Mobility Assessment external assessment of pelvic floor reveals inability to lift the levator ani from a guarded position and Renee is not aware of a relaxed state verses a tightened state of her pelvic floor. PT-OP-I Pelvic Floor Start: 04/21/24 14:18 Freq: Status: Active Protocol: Document 04/21/24 14:30 [facility] (Rec: 04/22/24 12:59 [facility] [id number]) Pelvic Floor Assessment Urine Pelvic Floor Surgery No Contraction Ability Voluntary Contraction Weak Voluntary Relaxation Weak Comments Pelvic Floor Comments external pelvic floor was assessed today as Renee did not feel ready for internal pelvic floor exam. She has difficulty with any pelvic floor mobility and was unable to feel a pelvic floor contraction. She will benefit from EMG biofeedback to help with neuromuscular awareness of the pelvic floor PT-OP-Q Treatments Start: 04/21/24 14:18 Freq: Status: Active Protocol: Document 12/01/24 13:45 [facility] (Rec: 12/01/24 16:57 [facility] [id number]) Manual Therapy Treatment Soft Tissue Mobilization Transverse perineal release Mobilization Type Myofascial Release Intensity/Depth Moderate Body Position Hooklying fascial release at the ischium B Body Location MFR Comments worked on hamstring and adductor attachments at the ischium and both side are feeling more relaxed adductor release B Body Location B adducotrs Mobilization Type Myofascial Release Intensity/Depth Moderate Body Position Hooklying Comments worked on adductor release B, both sides are feeling looser with L>R side tightness obturator internus release B Body Location worked on just the left side today Mobilization Type Myofascial Release Intensity/Depth Moderate Body Position Sidelying Comments worked in sidelying to release the obturator internus PT-OP-T Assessment and Plan Start: 04/21/24 14:18 Freq: Status: Active Protocol: Document 12/01/24 13:45 [facility] (Rec: 12/01/24 16:57 [facility] [id number]) Physical Therapy Assessment Assessment Summary Assessment worked on the left obturator internus and gluteals today as Renee can tell she is tighter on the left side when using the dilator. Renee has been working on her stretches and dilator on a regular basis at home. Pt to work on updated referral as her referral expires Physical Therapy Plan Frequency and Duration Frequency of Treatment 1x/Week Duration of treatment (weeks) 12 Plan of Care Start Date 10/20/24 Plan of Care End Date 01/12/25 Therapeutic Interventions Therapeutic Interventions Home Exercise Program,Manual Therapy,Neuromuscular Re- education,Patient/Caregiver Education,Self-Care/Home Management,Soft Tissue Mobilization,Therapeutic Exercises Modalities Biofeedback Next Visit Focus/Plan Next Note Type Treatment Note Next Visit Plan continue with manual therapy techniques and pelvic floor contract/relax with vaginal sensor working towards 2uv or less
--- NOTE | 2024-12-16 12:03 | PT.OTN ---
Current Diagnoses Unspecified dyspareunia (12/16/24) Pelvic and perineal pain (12/16/24) Physical Therapy Treatment Note PT-OP-A Visit Information Start: 04/21/24 14:18 Freq: Status: Active Protocol: Document 12/16/24 09:00 [facility] (Rec: 12/16/24 09:07 [facility] [id number]) Out-Patient Physical Therapy Visit Information Visit Information Visit Type Treatment Note Visit Start Time 09:00 Visit Stop Time 09:45 Visit Number 18 PT-OP-B Current Condition Start: 04/21/24 14:18 Freq: Status: Active Protocol: Document 04/21/24 14:30 [facility] (Rec: 04/21/24 15:06 [facility] [id number]) Current Condition History of Current Condition Onset Date chronic pelvic pain Current Complaints pelvic floor tension and involuntary clenching, dysparunia History of Current Condition 28 year old female who underwent a medically induced PTSVD of IUFD at 26 weeks gestation on 01/15/24. She presents to PT with pelvic and perineal pain and dyspareunia . She reports she has always had her pain when trying to use tampons she feels she cant relax the area enough. She would like to be able to have a pap smear as she has only attempted and had a bad experience. This is a little better since her delivery. PT-OP-C Subjective Start: 04/21/24 14:18 Freq: Status: Active Protocol: Document 12/16/24 09:00 [facility] (Rec: 12/16/24 09:07 [facility] [id number]) OP-PT Subjective Patient Comments Patient Comments just ending her period so hasn 't dilated in the last few days, she has been doing the clocking and the holding release with the size 3 and 4 Patient Reported Progress Improving PT-OP-F Manual Assessment Start: 04/21/24 14:18 Freq: Status: Active Protocol: Document 04/21/24 14:30 [facility] (Rec: 04/22/24 13:17 [facility] [id number]) Manual Assessments Soft Tissue Assessment Soft Tissue Mobility Assessment external assessment of pelvic floor reveals inability to lift the levator ani from a guarded position and Renee is not aware of a relaxed state verses a tightened state of her pelvic floor. PT-OP-I Pelvic Floor Start: 04/21/24 14:18 Freq: Status: Active Protocol: Document 04/21/24 14:30 [facility] (Rec: 04/22/24 12:59 [facility] [id number]) Pelvic Floor Assessment Urine Pelvic Floor Surgery No Contraction Ability Voluntary Contraction Weak Voluntary Relaxation Weak Comments Pelvic Floor Comments external pelvic floor was assessed today as Renee did not feel ready for internal pelvic floor exam. She has difficulty with any pelvic floor mobility and was unable to feel a pelvic floor contraction. She will benefit from EMG biofeedback to help with neuromuscular awareness of the pelvic floor PT-OP-Q Treatments Start: 04/21/24 14:18 Freq: Status: Active Protocol: Document 12/16/24 09:00 [facility] (Rec: 12/16/24 09:47 [facility] [id number]) Therapeutic Exercises Supine Exercises hip ER/IR Reps/Minutes x 20 reps Comments pt felt more relaxation with legs extended for hip ER/IR pelvic floor long holds Supine Exercise Name 5.5 at rest to start and went as low at 1.9 Reps/Minutes 10 sec on 10 sec off Comments 11.4 average and max of 19 uv Manual Therapy Treatment Soft Tissue Mobilization fascial release at the ischium B Body Location MFR Comments worked on hamstring and adductor attachments at the ischium and both side are feeling more relaxed adductor release B Body Location B adducotrs Mobilization Type Myofascial Release Intensity/Depth Moderate Body Position Hooklying Comments worked on adductor release B, both sides are feeling looser with L>R side tightness PT-OP-T Assessment and Plan Start: 04/21/24 14:18 Freq: Status: Active Protocol: Document 12/16/24 09:00 [facility] (Rec: 12/16/24 09:07 [facility] [id number]) Physical Therapy Assessment Assessment Summary Assessment Renee continues to show progress, she was able to use the vaginal sensor today with greater ease for the pelvic floor endurance training. She is showing improved ability to relax the pelvic floor. She also notes intercourse with her is also improving Physical Therapy Plan Frequency and Duration Frequency of Treatment 1x/Week Duration of treatment (weeks) 12 Plan of Care Start Date 10/20/24 Plan of Care End Date 01/12/25
--- NOTE | 2024-12-23 12:46 | PT.OTN ---
Current Diagnoses Unspecified dyspareunia (12/23/24) Pelvic and perineal pain (12/23/24) Physical Therapy Treatment Note PT-OP-A Visit Information Start: 04/21/24 14:18 Freq: Status: Active Protocol: Document 12/23/24 09:45 [facility] (Rec: 12/23/24 09:52 [facility] [id number]) Out-Patient Physical Therapy Visit Information Visit Information Visit Type Treatment Note Visit Start Time 09:45 Visit Stop Time 10:30 Visit Number 19 Evaluation Information Evaluation Date 04/21/24 PT-OP-B Current Condition Start: 04/21/24 14:18 Freq: Status: Active Protocol: Document 04/21/24 14:30 [facility] (Rec: 04/21/24 15:06 [facility] [id number]) Current Condition History of Current Condition Onset Date chronic pelvic pain Current Complaints pelvic floor tension and involuntary clenching, dysparunia History of Current Condition 28 year old female who underwent a medically induced PTSVD of IUFD at 26 weeks gestation on 01/15/24. She presents to PT with pelvic and perineal pain and dyspareunia . She reports she has always had her pain when trying to use tampons she feels she cant relax the area enough. She would like to be able to have a pap smear as she has only attempted and had a bad experience. This is a little better since her delivery. PT-OP-C Subjective Start: 04/21/24 14:18 Freq: Status: Active Protocol: Document 12/23/24 09:45 [facility] (Rec: 12/23/24 09:52 [facility] [id number]) OP-PT Subjective Patient Comments Patient Comments pt notes intercourse is not painful now and she has been able to have intercourse but still has room for improvement with comfort and tightness, she hasn't been sore afterwards. Patient Reported Progress Improving PT-OP-F Manual Assessment Start: 04/21/24 14:18 Freq: Status: Active Protocol: Document 04/21/24 14:30 [facility] (Rec: 04/22/24 13:17 [facility] [id number]) Manual Assessments Soft Tissue Assessment Soft Tissue Mobility Assessment external assessment of pelvic floor reveals inability to lift the levator ani from a guarded position and Renee is not aware of a relaxed state verses a tightened state of her pelvic floor. PT-OP-I Pelvic Floor Start: 04/21/24 14:18 Freq: Status: Active Protocol: Document 04/21/24 14:30 [facility] (Rec: 04/22/24 12:59 [facility] [id number]) Pelvic Floor Assessment Urine Pelvic Floor Surgery No Contraction Ability Voluntary Contraction Weak Voluntary Relaxation Weak Comments Pelvic Floor Comments external pelvic floor was assessed today as Renee did not feel ready for internal pelvic floor exam. She has difficulty with any pelvic floor mobility and was unable to feel a pelvic floor contraction. She will benefit from EMG biofeedback to help with neuromuscular awareness of the pelvic floor PT-OP-Q Treatments Start: 04/21/24 14:18 Freq: Status: Active Protocol: Document 12/23/24 09:45 [facility] (Rec: 12/23/24 10:43 [facility] [id number]) Manual Therapy Treatment Soft Tissue Mobilization piriormis release B Mobilization Type Myofascial Release Intensity/Depth Moderate Body Position Prone Comments worked on bilateral piriformis release L>R sided tightness today gluteal release B Body Location MFR Body Position Prone Comments worked on releasing the gluteals B combining STM with manual hip IR/ER, worked on skin rolling and fascial release around the ischium B Left side was tighter than the right so more time was spent on the left side Manual Techniques manual piriformis stretch Body Position Prone Reps/Duration IR/ER with manual stretching PT-OP-T Assessment and Plan Start: 04/21/24 14:18 Freq: Status: Active Protocol: Document 12/23/24 09:45 [facility] (Rec: 12/23/24 09:52 [facility] [id number]) Physical Therapy Assessment Goals 2 Impairment Pelvic floor pain rated 4/10 with dyspareunia Independent Video Producer Goal (LTG) With education on pelvic floor relaxation and reduced tension Renee is able to be intimate with her without a increase in pain levels Renee is making good progress with being able to reduce tension in the pelvic floor, she is up to a size 5 dilator now and has been working on stretches to reduce pelvic tightness. She has been able to return to intercourse and notes pain levels are decreased. She feels there is still room for improvement but she is doing better some progress LTG Duration 12 weeks + 1 Impairment Tightness and guarding of the pelvic floor with inability to undergo a pap smear for routine exam and dyspareunia Short Term Goal (STG) Renee is educated on the use of progressive dilators to help reduce tension and improve mobility of the pelvic floor excellent progress as Renee is up to size 5 dilator STG Duration 4 weeks Independent Video Producer Goal (LTG) Renee is able to tolerate EMG biofeedback with a vaginal sensor to work on relaxed awareness of the pelvic floor and is able to tolerate a vaginal pelvic exam goal met LTG Duration 8 weeks Progress Towards Goals Progress Towards Goals Progressing Toward Goals Assessment Summary Assessment Renee continues to show good progress with PT. She is now up to a size 5 dilator and has been able to have intercourse without the pain she was having. She still feels there is tightness and room for improvement but things are doing better overall. She is actively trying to become now. She would like to continue PT but we will drop it down to every other week now. Physical Therapy Plan Frequency and Duration Frequency of Treatment Every Other Week Duration of treatment (weeks) 12 Plan of Care Start Date 12/23/24 Plan of Care End Date 03/17/25 Therapeutic Interventions Therapeutic Interventions Home Exercise Program,Manual Therapy,Neuromuscular Re- education,Patient/Caregiver Education,Self-Care/Home Management,Soft Tissue Mobilization,Therapeutic Exercises Modalities Biofeedback Next Visit Focus/Plan Next Note Type Treatment Note Next Visit Plan continue with manual therapy techniques and pelvic floor contract/relax with vaginal sensor working towards 2uv or less
--- NOTE | 2024-12-23 12:48 | PT.OPPOC ---
Physical, Occupational & Speech Therapy At [facility] Current Diagnoses Unspecified dyspareunia (12/23/24) Pelvic and perineal pain (12/23/24) Visit Care Team Role Provider Type Carleen MORALES Provider Primary Care Provider Non-Staff Specialty: Medical Address: Phone: Email: DAYNA Chaudhry Attending Provider Non-Staff Referring Provider Specialty: Nursing Address: [address] [place] [address], [id number] Email: Plan Of Care PT-OP-B Current Condition Start: 04/21/24 14:18 Freq: Status: Active Protocol: Document 04/21/24 14:30 [facility] (Rec: 04/21/24 15:06 [facility] [id number]) Current Condition History of Current Condition Onset Date chronic pelvic pain Current Complaints pelvic floor tension and involuntary clenching, dyspareunia History of Current Condition 28 year old female who underwent a medically induced PTSVD of IUFD at 26 weeks gestation on 01/15/24. She presents to PT with pelvic and perineal pain and dyspareunia . She reports she has always had her pain when trying to use tampons she feels she cant relax the area enough. She would like to be able to have a pap smear as she has only attempted and had a bad experience. This is a little better since her delivery. PT-OP-T Assessment and Plan Start: 04/21/24 14:18 Freq: Status: Active Protocol: Document 12/23/24 09:45 [facility] (Rec: 12/23/24 09:52 [facility] [id number]) Physical Therapy Assessment Goals 2 Impairment Pelvic floor pain rated 4/10 with dyspareunia Senior Living Goal (LTG) With education on pelvic floor relaxation and reduced tension Renee is able to be intimate with her without a increase in pain levels Renee is making good progress with being able to reduce tension in the pelvic floor, she is up to a size 5 dilator now and has been working on stretches to reduce pelvic tightness. She has been able to return to intercourse and notes pain levels are decreased. She feels there is still room for improvement but she is doing better some progress LTG Duration 12 weeks + 1 Impairment Tightness and guarding of the pelvic floor with inability to undergo a pap smear for routine exam and dyspareunia Short Term Goal (STG) Renee is educated on the use of progressive dilators to help reduce tension and improve mobility of the pelvic floor excellent progress as Renee is up to size 5 dilator STG Duration 4 weeks Grinding Machine Operator Goal (LTG) Renee is able to tolerate EMG biofeedback with a vaginal sensor to work on relaxed awareness of the pelvic floor and is able to tolerate a vaginal pelvic exam goal met LTG Duration 8 weeks Progress Towards Goals Progress Towards Goals Progressing Toward Goals Assessment Summary Assessment Renee continues to show good progress with PT. She is now up to a size 5 dilator and has been able to have intercourse without the pain she was having. She still feels there is tightness and room for improvement but things are doing better overall. She is actively trying to become now. She would like to continue PT but we will drop it down to every other week now. Physical Therapy Plan Frequency and Duration Frequency of Treatment Every Other Week Duration of treatment (weeks) 12 Plan of Care Start Date 12/23/24 Plan of Care End Date 03/17/25 Therapeutic Interventions Therapeutic Interventions Home Exercise Program,Manual Therapy,Neuromuscular Re- education,Patient/Caregiver Education,Self-Care/Home Management,Soft Tissue Mobilization,Therapeutic Exercises Modalities Biofeedback Next Visit Focus/Plan Next Note Type Treatment Note Next Visit Plan continue with manual therapy techniques and pelvic floor contract/relax with vaginal sensor working towards 2uv or less Plan of Care Dates Plan of Care Start Date 12/23/24 Plan of Care End Date 03/17/25 Electronically Signed by: Sarahi Caraballo, PT 12/23/24 2404 If you are in agreement with this Plan of Care, please return a signed and dated copy. I have reviewed this Plan of Care and certify that the skilled therapy services above are required to meet the patient?s needs. Physician Signature Date Printed Name and Credentials Clinical Instructor Signature Printed Name and Credentials
--- NOTE | 2025-01-13 13:09 | PT.OTN ---
Current Diagnoses Unspecified dyspareunia (01/13/25) Pelvic and perineal pain (01/13/25) Physical Therapy Treatment Note PT-OP-A Visit Information Start: 04/21/24 14:18 Freq: Status: Active Protocol: Document 01/13/25 09:00 [facility] (Rec: 01/13/25 13:08 [facility] [id number]) Out-Patient Physical Therapy Visit Information Visit Information Visit Type Treatment Note Visit Start Time 09:00 Visit Stop Time 09:45 Visit Number 20 PT-OP-B Current Condition Start: 04/21/24 14:18 Freq: Status: Active Protocol: Document 04/21/24 14:30 [facility] (Rec: 04/21/24 15:06 [facility] [id number]) Current Condition History of Current Condition Onset Date chronic pelvic pain Current Complaints pelvic floor tension and involuntary clenching, dysparunia History of Current Condition 28 year old female who underwent a medically induced PTSVD of IUFD at 26 weeks gestation on 01/15/24. She presents to PT with pelvic and perineal pain and dyspareunia . She reports she has always had her pain when trying to use tampons she feels she cant relax the area enough. She would like to be able to have a pap smear as she has only attempted and had a bad experience. This is a little better since her delivery. PT-OP-C Subjective Start: 04/21/24 14:18 Freq: Status: Active Protocol: Document 01/13/25 09:01 [facility] (Rec: 01/13/25 09:50 [facility] [id number]) OP-PT Subjective Patient Comments Patient Comments pt notes she took a break from dilator use and she started again saturday dilating sizes 2, 3, 4 PT-OP-F Manual Assessment Start: 04/21/24 14:18 Freq: Status: Active Protocol: Document 04/21/24 14:30 [facility] (Rec: 04/22/24 13:17 [facility] [id number]) Manual Assessments Soft Tissue Assessment Soft Tissue Mobility Assessment external assessment of pelvic floor reveals inability to lift the levator ani from a guarded position and Renee is not aware of a relaxed state verses a tightened state of her pelvic floor. PT-OP-I Pelvic Floor Start: 04/21/24 14:18 Freq: Status: Active Protocol: Document 04/21/24 14:30 [facility] (Rec: 04/22/24 12:59 [facility] [id number]) Pelvic Floor Assessment Urine Pelvic Floor Surgery No Contraction Ability Voluntary Contraction Weak Voluntary Relaxation Weak Comments Pelvic Floor Comments external pelvic floor was assessed today as Renee did not feel ready for internal pelvic floor exam. She has difficulty with any pelvic floor mobility and was unable to feel a pelvic floor contraction. She will benefit from EMG biofeedback to help with neuromuscular awareness of the pelvic floor PT-OP-Q Treatments Start: 04/21/24 14:18 Freq: Status: Active Protocol: Document 01/13/25 09:01 [facility] (Rec: 01/13/25 09:50 [facility] [id number]) Therapeutic Exercises Supine Exercises pelvic floor long holds Supine Exercise Name 3.5 rest starting tone Reps/Minutes 10 sec on 10 sec off Comments 9.6 and max of 16.7 Manual Therapy Treatment Soft Tissue Mobilization piriormis release B Mobilization Type Myofascial Release Intensity/Depth Moderate Body Position Prone Comments worked on bilateral piriformis release L>R sided tightness today adductor release B Body Location B adducotrs Mobilization Type Myofascial Release Intensity/Depth Moderate Body Position Hooklying Comments worked on adductor release B, both sides are feeling looser with L>R side tightness PT-OP-T Assessment and Plan Start: 04/21/24 14:18 Freq: Status: Active Protocol: Document 01/13/25 09:00 [facility] (Rec: 01/13/25 13:08 [facility] [id number]) Physical Therapy Assessment Assessment Summary Assessment Renee continues to show progress and has been able to have intercourse. She was slightly elevated with pelvic floor muscle tension with EMG biofeedback today. Will work more on transverse perineal musculature next visit Physical Therapy Plan Frequency and Duration Frequency of Treatment Every Other Week Duration of treatment (weeks) 12 Plan of Care Start Date 12/23/24 Plan of Care End Date 03/17/25 Therapeutic Interventions Therapeutic Interventions Home Exercise Program,Manual Therapy,Neuromuscular Re- education,Patient/Caregiver Education,Self-Care/Home Management,Soft Tissue Mobilization,Therapeutic Exercises Modalities Biofeedback Next Visit Focus/Plan Next Note Type Treatment Note Next Visit Plan work on manual release of the transverse perineum next visit
--- NOTE | 2025-01-27 13:24 | PT.OTN ---
Current Diagnoses Unspecified dyspareunia (01/27/25) Pelvic and perineal pain (01/27/25) Physical Therapy Treatment Note PT-OP-A Visit Information Start: 04/21/24 14:18 Freq: Status: Active Protocol: Document 01/27/25 09:59 [facility] (Rec: 01/27/25 10:49 [facility] [id number]) Out-Patient Physical Therapy Visit Information Visit Information Visit Type Treatment Note Visit Start Time 09:55 Visit Stop Time 10:40 Visit Number 21 PT-OP-B Current Condition Start: 04/21/24 14:18 Freq: Status: Active Protocol: Document 04/21/24 14:30 [facility] (Rec: 04/21/24 15:06 [facility] [id number]) Current Condition History of Current Condition Onset Date chronic pelvic pain Current Complaints pelvic floor tension and involuntary clenching, dysparunia History of Current Condition 28 year old female who underwent a medically induced PTSVD of IUFD at 26 weeks gestation on 01/15/24. She presents to PT with pelvic and perineal pain and dyspareunia . She reports she has always had her pain when trying to use tampons she feels she cant relax the area enough. She would like to be able to have a pap smear as she has only attempted and had a bad experience. This is a little better since her delivery. PT-OP-C Subjective Start: 04/21/24 14:18 Freq: Status: Active Protocol: Document 01/27/25 09:59 [facility] (Rec: 01/27/25 10:49 [facility] [id number]) OP-PT Subjective Patient Comments Patient Comments pt notes she has been actively trying to get , intercourse is getting easier but she notes there is stil room for improvement with the comfort of intercourse PT-OP-F Manual Assessment Start: 04/21/24 14:18 Freq: Status: Active Protocol: Document 04/21/24 14:30 [facility] (Rec: 04/22/24 13:17 [facility] [id number]) Manual Assessments Soft Tissue Assessment Soft Tissue Mobility Assessment external assessment of pelvic floor reveals inability to lift the levator ani from a guarded position and Renee is not aware of a relaxed state verses a tightened state of her pelvic floor. PT-OP-I Pelvic Floor Start: 04/21/24 14:18 Freq: Status: Active Protocol: Document 04/21/24 14:30 [facility] (Rec: 04/22/24 12:59 [facility] [id number]) Pelvic Floor Assessment Urine Pelvic Floor Surgery No Contraction Ability Voluntary Contraction Weak Voluntary Relaxation Weak Comments Pelvic Floor Comments external pelvic floor was assessed today as Renee did not feel ready for internal pelvic floor exam. She has difficulty with any pelvic floor mobility and was unable to feel a pelvic floor contraction. She will benefit from EMG biofeedback to help with neuromuscular awareness of the pelvic floor PT-OP-Q Treatments Start: 04/21/24 14:18 Freq: Status: Active Protocol: Document 01/27/25 10:00 [facility] (Rec: 01/27/25 13:24 [facility] [id number]) Manual Therapy Treatment Soft Tissue Mobilization piriormis release B Mobilization Type Myofascial Release Intensity/Depth Moderate Body Position Prone Comments worked on bilateral piriformis release L>R sided tightness today fascial release at the ischium B Body Location MFR Comments worked on hamstring and adductor attachments at the ischium and both side are feeling more relaxed adductor release B Body Location B adducotrs Mobilization Type Myofascial Release Intensity/Depth Moderate Body Position Hooklying Comments worked on adductor release B, both sides are feeling looser overall with decreased tension gluteal release B Body Location MFR Body Position Prone Comments worked on releasing the gluteals B combining STM with manual hip IR/ER, worked on skin rolling and fascial release around the ischium B Left side was tighter than the right so more time was spent on the left side Manual Techniques manual piriformis stretch Body Position Prone Reps/Duration IR/ER with manual stretching PT-OP-T Assessment and Plan Start: 04/21/24 14:18 Freq: Status: Active Protocol: Document 01/27/25 10:00 [facility] (Rec: 01/27/25 13:24 [facility] [id number]) Physical Therapy Assessment Assessment Summary Assessment Renee continues to make steady progress and intercourse is becoming easier . She continues with her yoga and dilating at home Physical Therapy Plan Frequency and Duration Frequency of Treatment Every Other Week Duration of treatment (weeks) 12 Plan of Care Start Date 12/23/24 Plan of Care End Date 03/17/25 Therapeutic Interventions Therapeutic Interventions Home Exercise Program,Manual Therapy,Neuromuscular Re- education,Patient/Caregiver Education,Self-Care/Home Management,Soft Tissue Mobilization,Therapeutic Exercises Modalities Biofeedback Next Visit Focus/Plan Next Note Type Treatment Note Next Visit Plan work on manual release of the transverse perineum next visit , and EMG biofeedback
--- NOTE | 2025-02-03 13:28 | PT.OTN ---
Current Diagnoses Unspecified dyspareunia (02/03/25) Pelvic and perineal pain (02/03/25) Physical Therapy Treatment Note PT-OP-A Visit Information Start: 04/21/24 14:18 Freq: Status: Active Protocol: Document 02/03/25 09:45 [facility] (Rec: 02/03/25 13:26 [facility] [id number]) Out-Patient Physical Therapy Visit Information Visit Information Visit Type Treatment Note Visit Start Time 09:45 Visit Stop Time 10:30 Visit Number 22 PT-OP-B Current Condition Start: 04/21/24 14:18 Freq: Status: Active Protocol: Document 04/21/24 14:30 [facility] (Rec: 04/21/24 15:06 [facility] [id number]) Current Condition History of Current Condition Onset Date chronic pelvic pain Current Complaints pelvic floor tension and involuntary clenching, dysparunia History of Current Condition 28 year old female who underwent a medically induced PTSVD of IUFD at 26 weeks gestation on 01/15/24. She presents to PT with pelvic and perineal pain and dyspareunia . She reports she has always had her pain when trying to use tampons she feels she cant relax the area enough. She would like to be able to have a pap smear as she has only attempted and had a bad experience. This is a little better since her delivery. PT-OP-C Subjective Start: 04/21/24 14:18 Freq: Status: Active Protocol: Document 02/03/25 09:45 [facility] (Rec: 02/03/25 13:26 [facility] [id number]) OP-PT Subjective Patient Comments Patient Comments pt notes she did take a test and is not She is on her period today so wishes to do EMG biofeedback next visit PT-OP-F Manual Assessment Start: 04/21/24 14:18 Freq: Status: Active Protocol: Document 04/21/24 14:30 [facility] (Rec: 04/22/24 13:17 [facility] [id number]) Manual Assessments Soft Tissue Assessment Soft Tissue Mobility Assessment external assessment of pelvic floor reveals inability to lift the levator ani from a guarded position and Renee is not aware of a relaxed state verses a tightened state of her pelvic floor. PT-OP-I Pelvic Floor Start: 04/21/24 14:18 Freq: Status: Active Protocol: Document 04/21/24 14:30 [facility] (Rec: 04/22/24 12:59 [facility] [id number]) Pelvic Floor Assessment Urine Pelvic Floor Surgery No Contraction Ability Voluntary Contraction Weak Voluntary Relaxation Weak Comments Pelvic Floor Comments external pelvic floor was assessed today as Renee did not feel ready for internal pelvic floor exam. She has difficulty with any pelvic floor mobility and was unable to feel a pelvic floor contraction. She will benefit from EMG biofeedback to help with neuromuscular awareness of the pelvic floor PT-OP-Q Treatments Start: 04/21/24 14:18 Freq: Status: Active Protocol: Document 02/03/25 09:49 [facility] (Rec: 02/03/25 10:42 [facility] [id number]) Manual Therapy Treatment Soft Tissue Mobilization piriormis release B Mobilization Type Myofascial Release Intensity/Depth Moderate Body Position Prone Comments worked on bilateral piriformis release L>R sided tightness today fascial release at the ischium B Body Location MFR Comments worked on hamstring and adductor attachments at the ischium and both side are feeling more relaxed gluteal release B Body Location MFR Body Position Prone Comments worked on releasing the gluteals B combining STM with manual hip IR/ER, worked on skin rolling and fascial release around the ischium B Left side was tighter than the right so more time was spent on the left side Manual Techniques manual piriformis stretch Body Position Prone Reps/Duration IR/ER with manual stretching Comments in prone PT-OP-T Assessment and Plan Start: 04/21/24 14:18 Freq: Status: Active Protocol: Document 02/03/25 09:49 [facility] (Rec: 02/03/25 10:42 [facility] [id number]) Physical Therapy Assessment Assessment Summary Assessment Renee was disappointed today that she was not , she was tighter in her hips today but she will continue to work on her stretches and will bring in the vaginal sensor for EMG biofeedback next visit Physical Therapy Plan Frequency and Duration Frequency of Treatment Every Other Week Duration of treatment (weeks) 12 Plan of Care Start Date 12/23/24 Plan of Care End Date 03/17/25 Therapeutic Interventions Therapeutic Interventions Home Exercise Program,Manual Therapy,Neuromuscular Re- education,Patient/Caregiver Education,Self-Care/Home Management,Soft Tissue Mobilization,Therapeutic Exercises Modalities Biofeedback Next Visit Focus/Plan Next Note Type Treatment Note Next Visit Plan work on manual release of the transverse perineum next visit , and EMG biofeedback
--- NOTE | 2025-02-11 16:42 | PT.OTN ---
Current Diagnoses Unspecified dyspareunia (02/10/25) Pelvic and perineal pain (02/10/25) Physical Therapy Treatment Note PT-OP-A Visit Information Start: 04/21/24 14:18 Freq: Status: Active Protocol: Document 02/10/25 09:45 [facility] (Rec: 02/10/25 09:51 [facility] [id number]) Out-Patient Physical Therapy Visit Information Visit Information Visit Type Treatment Note Visit Start Time 09:45 Visit Stop Time 10:30 Visit Number 23 PT-OP-B Current Condition Start: 04/21/24 14:18 Freq: Status: Active Protocol: Document 04/21/24 14:30 [facility] (Rec: 04/21/24 15:06 [facility] [id number]) Current Condition History of Current Condition Onset Date chronic pelvic pain Current Complaints pelvic floor tension and involuntary clenching, dysparunia History of Current Condition 28 year old female who underwent a medically induced PTSVD of IUFD at 26 weeks gestation on 01/15/24. She presents to PT with pelvic and perineal pain and dyspareunia . She reports she has always had her pain when trying to use tampons she feels she cant relax the area enough. She would like to be able to have a pap smear as she has only attempted and had a bad experience. This is a little better since her delivery. PT-OP-C Subjective Start: 04/21/24 14:18 Freq: Status: Active Protocol: Document 02/10/25 09:45 [facility] (Rec: 02/10/25 09:51 [facility] [id number]) OP-PT Subjective Patient Comments Patient Comments pt bought a pelvic wand and used it last night, she tried changing positions to her side and she could feel more trigger points overall she feels she is continuing to show progress as she does not think she could have used the pelvic wand earlier on in PT Patient Reported Progress Improving PT-OP-F Manual Assessment Start: 04/21/24 14:18 Freq: Status: Active Protocol: Document 04/21/24 14:30 [facility] (Rec: 04/22/24 13:17 [facility] [id number]) Manual Assessments Soft Tissue Assessment Soft Tissue Mobility Assessment external assessment of pelvic floor reveals inability to lift the levator ani from a guarded position and Renee is not aware of a relaxed state verses a tightened state of her pelvic floor. PT-OP-I Pelvic Floor Start: 04/21/24 14:18 Freq: Status: Active Protocol: Document 04/21/24 14:30 [facility] (Rec: 04/22/24 12:59 [facility] [id number]) Pelvic Floor Assessment Urine Pelvic Floor Surgery No Contraction Ability Voluntary Contraction Weak Voluntary Relaxation Weak Comments Pelvic Floor Comments external pelvic floor was assessed today as Renee did not feel ready for internal pelvic floor exam. She has difficulty with any pelvic floor mobility and was unable to feel a pelvic floor contraction. She will benefit from EMG biofeedback to help with neuromuscular awareness of the pelvic floor PT-OP-Q Treatments Start: 04/21/24 14:18 Freq: Status: Active Protocol: Document 02/10/25 09:45 [facility] (Rec: 02/10/25 10:33 [facility] [id number]) Therapeutic Exercises Supine Exercises pelvic floor long holds Supine Exercise Name 3.5 rest starting tone Reps/Minutes 10 sec on 10 sec off Comments 10.6 and max 21.3 Manual Therapy Treatment Soft Tissue Mobilization Transverse perineal release Mobilization Type Myofascial Release Intensity/Depth Moderate Body Position Sidelying adductor release B Body Location B adducotrs Mobilization Type Myofascial Release Intensity/Depth Moderate Body Position Supine PT-OP-T Assessment and Plan Start: 04/21/24 14:18 Freq: Status: Active Protocol: Document 02/10/25 09:45 [facility] (Rec: 02/10/25 09:53 [facility] [id number]) Physical Therapy Assessment Assessment Summary Assessment worked on releasing the TPM B, right side tenderness only, left side adductors still a little guarded but much better overall. Pt to continue using her pelvic wand at home Physical Therapy Plan Frequency and Duration Frequency of Treatment Every Other Week Duration of treatment (weeks) 12 Plan of Care Start Date 12/23/24 Plan of Care End Date 03/17/25 Therapeutic Interventions Therapeutic Interventions Home Exercise Program,Manual Therapy,Neuromuscular Re- education,Patient/Caregiver Education,Self-Care/Home Management,Soft Tissue Mobilization,Therapeutic Exercises Modalities Biofeedback Next Visit Focus/Plan Next Note Type Treatment Note Next Visit Plan work on manual release of the transverse perineum next visit , and EMG biofeedback
--- NOTE | 2025-02-24 12:53 | PT.OTN ---
Current Diagnoses Unspecified dyspareunia (02/24/25) Pelvic and perineal pain (02/24/25) Physical Therapy Treatment Note PT-OP-A Visit Information Start: 04/21/24 14:18 Freq: Status: Active Protocol: Document 02/24/25 09:06 [facility] (Rec: 02/24/25 09:12 [facility] [id number]) Out-Patient Physical Therapy Visit Information Visit Information Visit Type Treatment Note Visit Start Time 09:05 Visit Stop Time 09:45 Visit Number 24 PT-OP-B Current Condition Start: 04/21/24 14:18 Freq: Status: Active Protocol: Document 04/21/24 14:30 [facility] (Rec: 04/21/24 15:06 [facility] [id number]) Current Condition History of Current Condition Onset Date chronic pelvic pain Current Complaints pelvic floor tension and involuntary clenching, dysparunia History of Current Condition 28 year old female who underwent a medically induced PTSVD of IUFD at 26 weeks gestation on 01/15/24. She presents to PT with pelvic and perineal pain and dyspareunia . She reports she has always had her pain when trying to use tampons she feels she cant relax the area enough. She would like to be able to have a pap smear as she has only attempted and had a bad experience. This is a little better since her delivery. PT-OP-C Subjective Start: 04/21/24 14:18 Freq: Status: Active Protocol: Document 02/24/25 09:06 [facility] (Rec: 02/24/25 09:12 [facility] [id number]) OP-PT Subjective Patient Comments Patient Comments pt notes she is using the pelvic wand and she did feel some tension on both sides but she had also gone bowling she was able to start with the size 3 dilator PT-OP-F Manual Assessment Start: 04/21/24 14:18 Freq: Status: Active Protocol: Document 04/21/24 14:30 [facility] (Rec: 04/22/24 13:17 [facility] [id number]) Manual Assessments Soft Tissue Assessment Soft Tissue Mobility Assessment external assessment of pelvic floor reveals inability to lift the levator ani from a guarded position and Renee is not aware of a relaxed state verses a tightened state of her pelvic floor. PT-OP-I Pelvic Floor Start: 04/21/24 14:18 Freq: Status: Active Protocol: Document 04/21/24 14:30 [facility] (Rec: 04/22/24 12:59 [facility] [id number]) Pelvic Floor Assessment Urine Pelvic Floor Surgery No Contraction Ability Voluntary Contraction Weak Voluntary Relaxation Weak Comments Pelvic Floor Comments external pelvic floor was assessed today as Renee did not feel ready for internal pelvic floor exam. She has difficulty with any pelvic floor mobility and was unable to feel a pelvic floor contraction. She will benefit from EMG biofeedback to help with neuromuscular awareness of the pelvic floor PT-OP-Q Treatments Start: 04/21/24 14:18 Freq: Status: Active Protocol: Document 02/24/25 09:00 [facility] (Rec: 02/24/25 12:52 [facility] [id number]) Manual Therapy Treatment Soft Tissue Mobilization piriormis release B Mobilization Type Myofascial Release Intensity/Depth Moderate Body Position Prone Comments worked on bilateral piriformis release L>R sided tightness today fascial release at the ischium B Body Location MFR Comments worked on hamstring and adductor attachments at the ischium and both side are feeling more relaxed adductor release B Body Location B adducotrs Mobilization Type Myofascial Release Intensity/Depth Moderate Body Position Supine gluteal release B Body Location MFR Body Position Prone Comments worked on releasing the gluteals B combining STM with manual hip IR/ER, worked on skin rolling and fascial release around the ischium B Left side was tighter than the right so more time was spent on the left side PT-OP-T Assessment and Plan Start: 04/21/24 14:18 Freq: Status: Active Protocol: Document 02/24/25 09:00 [facility] (Rec: 02/24/25 12:52 [facility] [id number]) Physical Therapy Assessment Assessment Summary Assessment Renee continues to make progress and is working with both the pelvic wand as well as the dilators. She is actively trying to conceive. Physical Therapy Plan Frequency and Duration Frequency of Treatment Every Other Week Duration of treatment (weeks) 12 Plan of Care Start Date 12/23/24 Plan of Care End Date 03/17/25 Therapeutic Interventions Therapeutic Interventions Home Exercise Program,Manual Therapy,Neuromuscular Re- education,Patient/Caregiver Education,Self-Care/Home Management,Soft Tissue Mobilization,Therapeutic Exercises Modalities Biofeedback,Vasopneumatic Devices Next Visit Focus/Plan Next Note Type Progress Note Next Visit Plan continue working on MFR techniques for the gluteals, adductors and muscle attachments to the pelvis and support Renee's Home program of dilator use, pelvic wand, and stretches. Send NH to MD next visit
--- NOTE | 2025-03-10 10:55 | PT.OTN ---
Current Diagnoses Unspecified dyspareunia (03/10/25) Pelvic and perineal pain (03/10/25) Physical Therapy Treatment Note PT-OP-A Visit Information Start: 04/21/24 14:18 Freq: Status: Active Protocol: Document 03/10/25 09:48 [facility] (Rec: 03/10/25 10:33 [facility] [id number]) Out-Patient Physical Therapy Visit Information Visit Information Visit Type Progress Note Visit Start Time 09:45 Visit Stop Time 10:30 Visit Number 25 PT-OP-B Current Condition Start: 04/21/24 14:18 Freq: Status: Active Protocol: Document 04/21/24 14:30 [facility] (Rec: 04/21/24 15:06 [facility] [id number]) Current Condition History of Current Condition Onset Date chronic pelvic pain Current Complaints pelvic floor tension and involuntary clenching, dysparunia History of Current Condition 28 year old female who underwent a medically induced PTSVD of IUFD at 26 weeks gestation on 01/15/24. She presents to PT with pelvic and perineal pain and dyspareunia . She reports she has always had her pain when trying to use tampons she feels she cant relax the area enough. She would like to be able to have a pap smear as she has only attempted and had a bad experience. This is a little better since her delivery. PT-OP-C Subjective Start: 04/21/24 14:18 Freq: Status: Active Protocol: Document 03/10/25 09:48 [facility] (Rec: 03/10/25 10:33 [facility] [id number]) OP-PT Subjective Patient Comments Patient Comments she has been doing the wand before intercourse and she feels like that has helped she has been trying but is not She feels like she is improving but she feels she isn't able yet to tolerate a pelvic exam. PT-OP-F Manual Assessment Start: 04/21/24 14:18 Freq: Status: Active Protocol: Document 04/21/24 14:30 [facility] (Rec: 04/22/24 13:17 [facility] [id number]) Manual Assessments Soft Tissue Assessment Soft Tissue Mobility Assessment external assessment of pelvic floor reveals inability to lift the levator ani from a guarded position and Renee is not aware of a relaxed state verses a tightened state of her pelvic floor. PT-OP-I Pelvic Floor Start: 04/21/24 14:18 Freq: Status: Active Protocol: Document 04/21/24 14:30 [facility] (Rec: 04/22/24 12:59 [facility] [id number]) Pelvic Floor Assessment Urine Pelvic Floor Surgery No Contraction Ability Voluntary Contraction Weak Voluntary Relaxation Weak Comments Pelvic Floor Comments external pelvic floor was assessed today as Renee did not feel ready for internal pelvic floor exam. She has difficulty with any pelvic floor mobility and was unable to feel a pelvic floor contraction. She will benefit from EMG biofeedback to help with neuromuscular awareness of the pelvic floor PT-OP-Q Treatments Start: 04/21/24 14:18 Freq: Status: Active Protocol: Document 03/10/25 09:48 [facility] (Rec: 03/10/25 10:33 [facility] [id number]) Therapeutic Exercises Supine Exercises pelvic floor long holds Supine Exercise Name 2.5 Reps/Minutes 10 sec on 10 sec off Comments 11.4 and 18.5 Manual Therapy Treatment Soft Tissue Mobilization Transverse perineal release Mobilization Type Myofascial Release Intensity/Depth Moderate Body Position Sidelying fascial release at the ischium B Body Location MFR external pelvic diaphraghm release Mobilization Type Myofascial Release Body Position Hooklying Comments worked on lifting the pelvic floor up and gently stretching side to side with exernal mobilization. Left side feeling much more mobile now. PT-OP-T Assessment and Plan Start: 04/21/24 14:18 Freq: Status: Active Protocol: Document 03/10/25 10:49 [facility] (Rec: 03/10/25 10:54 [facility] [id number]) Physical Therapy Assessment Goals 2 Impairment Pelvic floor pain rated 4/10 with dyspareunia Laboratory Administrative Director Goal (LTG) With education on pelvic floor relaxation and reduced tension Renee is able to be intimate with her without a increase in pain levels Renee is making good progress with being able to reduce tension in the pelvic floor, she is up to a size 5 dilator now and has been working on stretches to reduce pelvic tightness. She has been able to return to intercourse and notes pain levels are decreased. She feels there is still room for improvement but she is doing better some progress LTG Duration 12 weeks + 1 Impairment Tightness and guarding of the pelvic floor with inability to undergo a pap smear for routine exam and dyspareunia Short Term Goal (STG) Renee is educated on the use of progressive dilators to help reduce tension and improve mobility of the pelvic floor excellent progress as Renee is up to size 5 dilator STG Duration 4 weeks Jail Goal (LTG) Renee is able to tolerate EMG biofeedback with a vaginal sensor to work on relaxed awareness of the pelvic floor and is able to tolerate a vaginal pelvic exam goal met LTG Duration 8 weeks Assessment Summary Assessment Renee continues to make good progress with PT. She notes overall intercourse is more comfortable now. Her big goal is to be able to tolerate a pap smear and she feels she is not ready for that yet. We have worked all externally on pelvic floor release to this point as Renee was not ready to do any internal work in the clinic. She has been using the dilators as well as pelvic wand internally at home. She feels she is ready to start levator ani release internally now. She can tell with the dilator and pelvic wand use that she is tighter on the left side. Physical Therapy Plan Frequency and Duration Frequency of Treatment 1x/Week Duration of treatment (weeks) 12 Plan of Care Start Date 03/10/25 Plan of Care End Date 06/02/25 Therapeutic Interventions Therapeutic Interventions Home Exercise Program,Manual Therapy,Neuromuscular Re- education,Patient/Caregiver Education,Self-Care/Home Management,Soft Tissue Mobilization,Therapeutic Exercises Modalities Biofeedback,Vasopneumatic Devices Next Visit Focus/Plan Next Note Type Treatment Note Next Visit Plan continue working on MFR techniques for the levator ani , gluteals, adductors and muscle attachments to the pelvis and support Renee's Home program of dilator use, pelvic wand, and stretches.
--- NOTE | 2025-03-10 10:55 | PT.OPPOC ---
Physical, Occupational & Speech Therapy At [facility] Current Diagnoses Unspecified dyspareunia (03/10/25) Pelvic and perineal pain (03/10/25) Visit Care Team Role Provider Type Carleen MORALES Provider Primary Care Provider Facility Specialty: Family Practice Address: Phone: Email: DAYNA Chaudhry Attending Provider Non-Staff Referring Provider Specialty: Nursing Address: [address] [place] [address], [id number] Email: Plan Of Care PT-OP-B Current Condition Start: 04/21/24 14:18 Freq: Status: Active Protocol: Document 04/21/24 14:30 [facility] (Rec: 04/21/24 15:06 [facility] [id number]) Current Condition History of Current Condition Onset Date chronic pelvic pain Current Complaints pelvic floor tension and involuntary clenching, dysparunia History of Current Condition 28 year old female who underwent a medically induced PTSVD of IUFD at 26 weeks gestation on 01/15/24. She presents to PT with pelvic and perineal pain and dyspareunia . She reports she has always had her pain when trying to use tampons she feels she cant relax the area enough. She would like to be able to have a pap smear as she has only attempted and had a bad experience. This is a little better since her delivery. PT-OP-T Assessment and Plan Start: 04/21/24 14:18 Freq: Status: Active Protocol: Document 03/10/25 10:49 [facility] (Rec: 03/10/25 10:54 [facility] [id number]) Physical Therapy Assessment Goals 2 Impairment Pelvic floor pain rated 4/10 with dyspareunia [facility] Goal (LTG) With education on pelvic floor relaxation and reduced tension Renee is able to be intimate with her without a increase in pain levels Renee is making good progress with being able to reduce tension in the pelvic floor, she is up to a size 5 dilator now and has been working on stretches to reduce pelvic tightness. She has been able to return to intercourse and notes pain levels are decreased. She feels there is still room for improvement but she is doing better some progress LTG Duration 12 weeks + 1 Impairment Tightness and guarding of the pelvic floor with inability to undergo a pap smear for routine exam and dyspareunia Short Term Goal (STG) Renee is educated on the use of progressive dilators to help reduce tension and improve mobility of the pelvic floor excellent progress as Renee is up to size 5 dilator STG Duration 4 weeks [facility] Goal (LTG) Renee is able to tolerate EMG biofeedback with a vaginal sensor to work on relaxed awareness of the pelvic floor and is able to tolerate a vaginal pelvic exam goal met LTG Duration 8 weeks Assessment Summary Assessment Renee continues to make good progress with PT. She notes overall intercourse is more comfortable now. Her big goal is to be able to tolerate a pap smear and she feels she is not ready for that yet. We have worked all externally on pelvic floor release to this point as Renee was not ready to do any internal work in the clinic. She has been using the dilators as well as pelvic wand internally at home. She feels she is ready to start levator ani release internally now. She can tell with the dilator and pelvic wand use that she is tighter on the left side. Physical Therapy Plan Frequency and Duration Frequency of Treatment 1x/Week Duration of treatment (weeks) 12 Plan of Care Start Date 03/10/25 Plan of Care End Date 06/02/25 Therapeutic Interventions Therapeutic Interventions Home Exercise Program,Manual Therapy,Neuromuscular Re- education,Patient/Caregiver Education,Self-Care/Home Management,Soft Tissue Mobilization,Therapeutic Exercises Modalities Biofeedback,Vasopneumatic Devices Next Visit Focus/Plan Next Note Type Treatment Note Next Visit Plan continue working on MFR techniques for the levator ani , gluteals, adductors and muscle attachments to the pelvis and support Renee's Home program of dilator use, pelvic wand, and stretches. Plan of Care Dates Plan of Care Start Date 03/10/25 Plan of Care End Date 06/02/25 Electronically Signed by: Sarahi Caraballo, PT 03/10/25 2403 If you are in agreement with this Plan of Care, please return a signed and dated copy. I have reviewed this Plan of Care and certify that the skilled therapy services above are required to meet the patient?s needs. Physician Signature Date Printed Name and Credentials Clinical Instructor Signature Printed Name and Credentials
--- NOTE | 2025-03-17 12:38 | PT.OTN ---
Current Diagnoses Unspecified dyspareunia (03/17/25) Pelvic and perineal pain (03/17/25) Physical Therapy Treatment Note PT-OP-A Visit Information Start: 04/21/24 14:18 Freq: Status: Active Protocol: Document 03/17/25 09:53 [facility] (Rec: 03/17/25 10:45 [facility] [id number]) Out-Patient Physical Therapy Visit Information Visit Information Visit Type Treatment Note Visit Start Time 09:53 Visit Stop Time 10:37 Visit Number 26 PT-OP-B Current Condition Start: 04/21/24 14:18 Freq: Status: Active Protocol: Document 04/21/24 14:30 [facility] (Rec: 04/21/24 15:06 [facility] [id number]) Current Condition History of Current Condition Onset Date chronic pelvic pain Current Complaints pelvic floor tension and involuntary clenching, dysparunia History of Current 28 year old female who underwent a medically induced Condition PTSVD of IUFD at 26 weeks gestation on 01/15/24. She presents to PT with pelvic and perineal pain and dyspareunia. She reports she has always had her pain when trying to use tampons she feels she cant relax the area enough. She would like to be able to have a pap smear as she has only attempted and had a bad experience. This is a little better since her delivery . PT-OP-C Subjective Start: 04/21/24 14:18 Freq: Status: Active Protocol: Document 03/17/25 09:53 [facility] (Rec: 03/17/25 10:45 [facility] [id number]) OP-PT Subjective Patient Comments Patient Comments pt notes she has been using the wand and she plans on working the dilators back into the routine, the left side feels less relaxed than PT-OP-F Manual Assessment Start: 04/21/24 14:18 Freq: Status: Active Protocol: Document 04/21/24 14:30 [facility] (Rec: 04/22/24 13:17 [facility] [id number]) Manual Assessments Soft Tissue Assessment Soft Tissue Mobility external assessment of pelvic floor reveals inability Assessment to lift the levator ani from a guarded position and Renee is not aware of a relaxed state verses a tightened state of her pelvic floor. PT-OP-I Pelvic Floor Start: 04/21/24 14:18 Freq: Status: Active Protocol: Document 04/21/24 14:30 [facility] (Rec: 04/22/24 12:59 [facility] [id number]) Pelvic Floor Assessment Urine Pelvic Floor Surgery No Contraction Ability Voluntary Weak Contraction Voluntary Relaxation Weak Comments Pelvic Floor external pelvic floor was assessed today as Renee did Comments not feel ready for internal pelvic floor exam. She has difficulty with any pelvic floor mobility and was unable to feel a pelvic floor contraction. She will benefit from EMG biofeedback to help with neuromuscular awareness of the pelvic floor PT-OP-Q Treatments Start: 04/21/24 14:18 Freq: Status: Active Protocol: Document 03/17/25 12:35 [facility] (Rec: 03/17/25 12:38 [facility] [id number]) Manual Therapy Treatment Soft Tissue Mobilization piriormis release B Mobilization Type Myofascial Release Intensity/Depth Moderate Body Position Prone Comments worked on bilateral piriformis release L>R sided tightness today fascial release at the ischium B Body Location MFR gluteal release B Body Location MFR Body Position Prone Comments worked on releasing the gluteals B combining STM with manual hip IR/ER, worked on skin rolling and fascial release around the ischium B Left side was tighter than the right so more time was spent on the left side Manual Techniques manual piriformis stretch Body Position Prone Reps/Duration IR/ER with manual stretching Comments in prone PT-OP-T Assessment and Plan Start: 04/21/24 14:18 Freq: Status: Active Protocol: Document 03/17/25 12:35 [facility] (Rec: 03/17/25 12:38 [facility] [id number]) Physical Therapy Assessment Goals 2 Impairment Pelvic floor pain rated 4/10 with dyspareunia Detention Goal (LTG) With education on pelvic floor relaxation and reduced tension Renee is able to be intimate with her without a increase in pain levels Renee is making good progress with being able to reduce tension in the pelvic floor, she is up to a size 5 dilator now and has been working on stretches to reduce pelvic tightness. She has been able to return to intercourse and notes pain levels are decreased. She feels there is still room for improvement but she is doing better some progress LTG Duration 12 weeks + 1 Impairment Tightness and guarding of the pelvic floor with inability to undergo a pap smear for routine exam and dyspareunia Short Term Goal (STG Renee is educated on the use of progressive dilators ) to help reduce tension and improve mobility of the pelvic floor excellent progress as Renee is up to size 5 dilator STG Duration 4 weeks Detention Goal (LTG) Renee is able to tolerate EMG biofeedback with a vaginal sensor to work on relaxed awareness of the pelvic floor and is able to tolerate a vaginal pelvic exam goal met LTG Duration 8 weeks Assessment Summary Assessment Renee wanted to work more on the gluteals today verses internal pelvic floor work. She felt tight and guarded in the piriformis. She is working on her stretches and will try doing the dilator then the pelvic wand at home Physical Therapy Plan Frequency and Duration Frequency of 1x/Week Treatment Duration of 12 treatment (weeks) Plan of Care Start 03/10/25 Date Plan of Care End 06/02/25 Date Therapeutic Interventions Therapeutic Home Exercise Program,Manual Therapy,Neuromuscular Re- Interventions education,Patient/Caregiver Education,Self-Care/Home Management,Soft Tissue Mobilization,Therapeutic Exercises Modalities Biofeedback,Vasopneumatic Devices Next Visit Focus/Plan Next Note Type Treatment Note Next Visit Plan continue working on MFR techniques for the levator ani, gluteals, adductors and muscle attachments to the pelvis and support Renee's Home program of dilator use , pelvic wand, and stretches.
--- NOTE | 2025-03-24 13:21 | PT.OTN ---
Current Diagnoses Unspecified dyspareunia (03/24/25) Pelvic and perineal pain (03/24/25) Physical Therapy Treatment Note PT-OP-A Visit Information Start: 04/21/24 14:18 Freq: Status: Active Protocol: Document 03/24/25 10:48 [facility] (Rec: 03/24/25 10:54 [facility] [id number]) Out-Patient Physical Therapy Visit Information Visit Information Visit Type Treatment Note Visit Start Time 10:47 Visit Stop Time 11:30 Visit Number 27 PT-OP-B Current Condition Start: 04/21/24 14:18 Freq: Status: Active Protocol: Document 04/21/24 14:30 [facility] (Rec: 04/21/24 15:06 [facility] [id number]) Current Condition History of Current Condition Onset Date chronic pelvic pain Current Complaints pelvic floor tension and involuntary clenching, dysparunia History of Current 28 year old female who underwent a medically induced Condition PTSVD of IUFD at 26 weeks gestation on 01/15/24. She presents to PT with pelvic and perineal pain and dyspareunia. She reports she has always had her pain when trying to use tampons she feels she cant relax the area enough. She would like to be able to have a pap smear as she has only attempted and had a bad experience. This is a little better since her delivery . PT-OP-C Subjective Start: 04/21/24 14:18 Freq: Status: Active Protocol: Document 03/24/25 10:48 [facility] (Rec: 03/24/25 10:54 [facility] [id number]) OP-PT Subjective Patient Comments Patient Comments did yoga and dilated this am and she tried to start with level 4 this am but it was tight, Renee reports she is ready to try internal pelvic floor release Patient Reported Improving Progress PT-OP-F Manual Assessment Start: 04/21/24 14:18 Freq: Status: Active Protocol: Document 04/21/24 14:30 [facility] (Rec: 04/22/24 13:17 [facility] [id number]) Manual Assessments Soft Tissue Assessment Soft Tissue Mobility external assessment of pelvic floor reveals inability Assessment to lift the levator ani from a guarded position and Renee is not aware of a relaxed state verses a tightened state of her pelvic floor. PT-OP-I Pelvic Floor Start: 04/21/24 14:18 Freq: Status: Active Protocol: Document 04/21/24 14:30 [facility] (Rec: 04/22/24 12:59 [facility] [id number]) Pelvic Floor Assessment Urine Pelvic Floor Surgery No Contraction Ability Voluntary Weak Contraction Voluntary Relaxation Weak Comments Pelvic Floor external pelvic floor was assessed today as Renee did Comments not feel ready for internal pelvic floor exam. She has difficulty with any pelvic floor mobility and was unable to feel a pelvic floor contraction. She will benefit from EMG biofeedback to help with neuromuscular awareness of the pelvic floor PT-OP-Q Treatments Start: 04/21/24 14:18 Freq: Status: Active Protocol: Document 03/24/25 10:48 [facility] (Rec: 03/24/25 10:54 [facility] [id number]) Manual Therapy Treatment Soft Tissue Mobilization levator ani release Comments worked on the left lateral/posterior wall of the levator ani with MFR and contract relax. Renee tolerated this well today and was able to relax her pelvic floor with manual therapy techniques. There is still guarding however I do think she has made very big gains with all her stretching and dilator use Transverse perineal release Mobilization Type Myofascial Release Intensity/Depth Moderate Body Position Supine Comments worked on the left side for Transverse perineal release adductor release B Body Location B adducotrs Mobilization Type Myofascial Release Intensity/Depth Moderate Body Position Supine Comments left greater than right PT-OP-T Assessment and Plan Start: 04/21/24 14:18 Freq: Status: Active Protocol: Document 03/24/25 10:48 [facility] (Rec: 03/24/25 10:54 [facility] [id number]) Physical Therapy Assessment Goals 2 Impairment Pelvic floor pain rated 4/10 with dyspareunia Animal Daycare Provider Goal (LTG) With education on pelvic floor relaxation and reduced tension Renee is able to be intimate with her without a increase in pain levels Renee is making good progress with being able to reduce tension in the pelvic floor, she is up to a size 5 dilator now and has been working on stretches to reduce pelvic tightness. She has been able to return to intercourse and notes pain levels are decreased. She feels there is still room for improvement but she is doing better some progress LTG Duration 12 weeks + 1 Impairment Tightness and guarding of the pelvic floor with inability to undergo a pap smear for routine exam and dyspareunia Short Term Goal (STG Renee is educated on the use of progressive dilators ) to help reduce tension and improve mobility of the pelvic floor excellent progress as Renee is up to size 5 dilator STG Duration 4 weeks Animal Daycare Provider Goal (LTG) Renee is able to tolerate EMG biofeedback with a vaginal sensor to work on relaxed awareness of the pelvic floor and is able to tolerate a vaginal pelvic exam goal met LTG Duration 8 weeks Assessment Summary Assessment Renee was able to tolerate the internal work today with MFR on the left side of the levator ani for the first time. This was a bog step for her and she will continue to use the pelvic wand at home for self release. Her goal is to be able to have a pap smear exam. Physical Therapy Plan Frequency and Duration Frequency of 1x/Week Treatment Duration of 12 treatment (weeks) Plan of Care Start 03/10/25 Date Plan of Care End 06/02/25 Date Therapeutic Interventions Therapeutic Home Exercise Program,Manual Therapy,Neuromuscular Re- Interventions education,Patient/Caregiver Education,Self-Care/Home Management,Soft Tissue Mobilization,Therapeutic Exercises Modalities Biofeedback,Vasopneumatic Devices Next Visit Focus/Plan Next Note Type Treatment Note Next Visit Plan continue working on MFR techniques for the levator ani, gluteals, adductors and muscle attachments to the pelvis and support Renee's Home program of dilator use , pelvic wand, and stretches.
--- NOTE | 2025-05-13 16:32 | PT.OTN ---
Current Diagnoses Unspecified dyspareunia (05/13/25) Pelvic and perineal pain (05/13/25) Physical Therapy Treatment Note PT-OP-A Visit Information Start: 04/21/24 14:18 Freq: Status: Active Protocol: Document 05/13/25 16:27 [facility] (Rec: 05/13/25 16:32 [facility] [id number]) Out-Patient Physical Therapy Visit Information Visit Information Visit Type Treatment Note Visit Start Time 14:30 Visit Stop Time 15:15 Visit Number 28 PT-OP-B Current Condition Start: 04/21/24 14:18 Freq: Status: Active Protocol: Document 04/21/24 14:30 [facility] (Rec: 04/21/24 15:06 [facility] [id number]) Current Condition History of Current Condition Onset Date chronic pelvic pain Current Complaints pelvic floor tension and involuntary clenching, dysparunia History of Current 28 year old female who underwent a medically induced Condition PTSVD of IUFD at 26 weeks gestation on 01/15/24. She presents to PT with pelvic and perineal pain and dyspareunia. She reports she has always had her pain when trying to use tampons she feels she cant relax the area enough. She would like to be able to have a pap smear as she has only attempted and had a bad experience. This is a little better since her delivery . PT-OP-C Subjective Start: 04/21/24 14:18 Freq: Status: Active Protocol: Document 05/13/25 16:27 [facility] (Rec: 05/13/25 16:32 [facility] [id number]) OP-PT Subjective Patient Comments Patient Comments Renee notes that intercourse has not been as painful. She is actively trying to become . Her deploys in June PT-OP-F Manual Assessment Start: 04/21/24 14:18 Freq: Status: Active Protocol: Document 04/21/24 14:30 [facility] (Rec: 04/22/24 13:17 [facility] [id number]) Manual Assessments Soft Tissue Assessment Soft Tissue Mobility external assessment of pelvic floor reveals inability Assessment to lift the levator ani from a guarded position and Renee is not aware of a relaxed state verses a tightened state of her pelvic floor. PT-OP-I Pelvic Floor Start: 04/21/24 14:18 Freq: Status: Active Protocol: Document 04/21/24 14:30 [facility] (Rec: 04/22/24 12:59 [facility] [id number]) Pelvic Floor Assessment Urine Pelvic Floor Surgery No Contraction Ability Voluntary Weak Contraction Voluntary Relaxation Weak Comments Pelvic Floor external pelvic floor was assessed today as Renee did Comments not feel ready for internal pelvic floor exam. She has difficulty with any pelvic floor mobility and was unable to feel a pelvic floor contraction. She will benefit from EMG biofeedback to help with neuromuscular awareness of the pelvic floor PT-OP-Q Treatments Start: 04/21/24 14:18 Freq: Status: Active Protocol: Document 05/13/25 16:27 [facility] (Rec: 05/13/25 16:32 [facility] [id number]) Manual Therapy Treatment Soft Tissue Mobilization levator ani release Comments worked on the right lateral/posterior wall of the levator ani with MFR and contract relax. Renee tolerated this well today and was able to relax her pelvic floor with manual therapy techniques. There is still guarding however I do think she has made very big gains with all her stretching and dilator use Transverse perineal release Mobilization Type Myofascial Release Intensity/Depth Moderate Body Position Supine Comments worked on the left side for Transverse perineal release adductor release B Body Location B adducotrs Mobilization Type Myofascial Release Intensity/Depth Moderate Body Position Supine Comments left greater than right PT-OP-T Assessment and Plan Start: 04/21/24 14:18 Freq: Status: Active Protocol: Document 05/13/25 16:27 [facility] (Rec: 05/13/25 16:32 [facility] [id number]) Physical Therapy Assessment Goals 2 Impairment Pelvic floor pain rated 4/10 with dyspareunia Barrel Painter Goal (LTG) With education on pelvic floor relaxation and reduced tension Renee is able to be intimate with her without a increase in pain levels Renee is making good progress with being able to reduce tension in the pelvic floor, she is up to a size 5 dilator now and has been working on stretches to reduce pelvic tightness. She has been able to return to intercourse and notes pain levels are decreased. She feels there is still room for improvement but she is doing better some progress LTG Duration 12 weeks + 1 Impairment Tightness and guarding of the pelvic floor with inability to undergo a pap smear for routine exam and dyspareunia Short Term Goal (STG Renee is educated on the use of progressive dilators ) to help reduce tension and improve mobility of the pelvic floor excellent progress as Renee is up to size 5 dilator STG Duration 4 weeks Halfway Goal (LTG) Renee is able to tolerate EMG biofeedback with a vaginal sensor to work on relaxed awareness of the pelvic floor and is able to tolerate a vaginal pelvic exam goal met LTG Duration 8 weeks Assessment Summary Assessment Renee was able to tolerate the internal work today with MFR on the right side. Her adductors are tight today right greater than left. She continues to work with the dilators and stretching. She notes she was able to wear a tampon for the first time. Physical Therapy Plan Frequency and Duration Frequency of 1x/Week Treatment Duration of 12 treatment (weeks) Plan of Care Start 03/10/25 Date Plan of Care End 06/02/25 Date Therapeutic Interventions Therapeutic Home Exercise Program,Manual Therapy,Neuromuscular Re- Interventions education,Patient/Caregiver Education,Self-Care/Home Management,Soft Tissue Mobilization,Therapeutic Exercises Modalities Biofeedback,Vasopneumatic Devices Next Visit Focus/Plan Next Note Type Treatment Note Next Visit Plan continue working on MFR techniques for the levator ani, gluteals, adductors and muscle attachments to the pelvis and support Renee's Home program of dilator use , pelvic wand, and stretches.
--- NOTE | 2025-05-27 17:39 | PT.OPPOC ---
Physical, Occupational & Speech Therapy At [facility] Current Diagnoses Unspecified dyspareunia (05/27/25) Pelvic and perineal pain (05/27/25) Visit Care Team Role Provider Type Carleen MORALES Provider Primary Care Provider Facility Specialty: Family Practice Address: Phone: Email: DAYNA Chaudhry Attending Provider Non-Staff Referring Provider Specialty: Nursing Address: [address] [place] [address], [id number] Email: Plan Of Care PT-OP-A Visit Information Start: 04/21/24 14:18 Freq: Status: Active Protocol: Document 05/27/25 10:48 [facility] (Rec: 05/27/25 10:58 [facility] [id number]) Out-Patient Physical Therapy Visit Information Visit Information Visit Type Treatment Note Visit Start Time 10:48 Visit Stop Time 11:30 Visit Number 29 PT-OP-B Current Condition Start: 04/21/24 14:18 Freq: Status: Active Protocol: Document 04/21/24 14:30 [facility] (Rec: 04/21/24 15:06 [facility] [id number]) Current Condition History of Current Condition Onset Date chronic pelvic pain Current Complaints pelvic floor tension and involuntary clenching, dysparunia History of Current 28 year old female who underwent a medically induced Condition PTSVD of IUFD at 26 weeks gestation on 01/15/24. She presents to PT with pelvic and perineal pain and dyspareunia. She reports she has always had her pain when trying to use tampons she feels she cant relax the area enough. She would like to be able to have a pap smear as she has only attempted and had a bad experience. This is a little better since her delivery . PT-OP-C Subjective Start: 04/21/24 14:18 Freq: Status: Active Protocol: Document 05/27/25 10:48 [facility] (Rec: 05/27/25 10:58 [facility] [id number]) OP-PT Subjective Patient Comments Patient Comments pt reports she is and will be seeing Dr noble and right now she will have a pap smear at the same time. She is scheduled for 06/15/25 f PT-OP-F Manual Assessment Start: 04/21/24 14:18 Freq: Status: Active Protocol: Document 04/21/24 14:30 [facility] (Rec: 04/22/24 13:17 [facility] [id number]) Manual Assessments Soft Tissue Assessment Soft Tissue Mobility external assessment of pelvic floor reveals inability Assessment to lift the levator ani from a guarded position and Renee is not aware of a relaxed state verses a tightened state of her pelvic floor. PT-OP-I Pelvic Floor Start: 04/21/24 14:18 Freq: Status: Active Protocol: Document 04/21/24 14:30 [facility] (Rec: 04/22/24 12:59 [facility] [id number]) Pelvic Floor Assessment Urine Pelvic Floor Surgery No Contraction Ability Voluntary Weak Contraction Voluntary Relaxation Weak Comments Pelvic Floor external pelvic floor was assessed today as Renee did Comments not feel ready for internal pelvic floor exam. She has difficulty with any pelvic floor mobility and was unable to feel a pelvic floor contraction. She will benefit from EMG biofeedback to help with neuromuscular awareness of the pelvic floor PT-OP-Q Treatments Start: 04/21/24 14:18 Freq: Status: Active Protocol: Document 05/27/25 10:48 [facility] (Rec: 05/27/25 17:37 [facility] [id number]) Manual Therapy Treatment Soft Tissue Mobilization quad and iliopsoas release Mobilization Type Myofascial Release Comments worked in supine and in kashif test position on releasing piriormis release B Mobilization Type Myofascial Release Intensity/Depth Moderate Body Position Prone Comments worked on bilateral piriformis release L>R sided tightness today PT-OP-T Assessment and Plan Start: 04/21/24 14:18 Freq: Status: Active Protocol: Document 05/27/25 10:48 [facility] (Rec: 05/27/25 17:37 [facility] [id number]) Physical Therapy Assessment Goals 2 Impairment Pelvic floor pain rated 4/10 with dyspareunia Guidance Director Goal (LTG) With education on pelvic floor relaxation and reduced tension Renee is able to be intimate with her without a increase in pain levels Renee is making good progress with being able to reduce tension in the pelvic floor, she is up to a size 5 dilator now and has been working on stretches to reduce pelvic tightness. She has been able to return to intercourse and notes pain levels are decreased. She feels there is still room for improvement but she is doing better some progress LTG Duration 12 weeks + 1 Impairment Tightness and guarding of the pelvic floor with inability to undergo a pap smear for routine exam and dyspareunia Short Term Goal (STG Renee is educated on the use of progressive dilators ) to help reduce tension and improve mobility of the pelvic floor excellent progress as Renee is up to size 5 dilator STG Duration 4 weeks Guidance Director Goal (LTG) Renee is able to tolerate EMG biofeedback with a vaginal sensor to work on relaxed awareness of the pelvic floor and is able to tolerate a vaginal pelvic exam goal met LTG Duration 8 weeks Assessment Summary Assessment Renee is now 5 weeks so no more internal work will be done in PT. She reports intercourse is not as painful. At this point I am working externally on the gluteals and hip musculature and Renee will continue with her stretching for home Physical Therapy Plan Frequency and Duration Frequency of 1x/Week Treatment Duration of 8 treatment (weeks) Plan of Care Start 05/27/25 Date Plan of Care End 07/22/25 Date Next Visit Focus/Plan Next Note Type Treatment Note Next Visit Plan Continue with external MFR techniques for the hips and pelvis Plan of Care Dates Plan of Care Start Date 05/27/25 Plan of Care End Date 07/22/25 Electronically Signed by: Sarahi Caraballo, PT 05/27/25 [id number] If you are in agreement with this Plan of Care, please return a signed and dated copy. I have reviewed this Plan of Care and certify that the skilled therapy services above are required to meet the patient?s needs. Physician Signature Date Printed Name and Credentials Clinical Instructor Signature Printed Name and Credentials
--- NOTE | 2025-06-03 16:45 | PT.OTN ---
Current Diagnoses Unspecified dyspareunia (06/03/25) Pelvic and perineal pain (06/03/25) Physical Therapy Treatment Note PT OP: Pelvic Health Start: 05/27/25 18:02 Freq: Status: Active Protocol: Document 06/03/25 11:31 [facility] (Rec: 06/03/25 12:29 [facility] [id number]) Out-Patient Physical Therapy Visit Information Visit Information Visit Type Treatment Note Visit Start Time 11:31 Visit Stop Time 12:15 Visit Number 30 OP-PT Subjective Patient Comments Patient Comments her first ultrasound is in 2 weeks and will be having a pap smear at the same time. Renee notes she has had some mental stress with this due to the loss she experienced with her last Manual Therapy Treatment Soft Tissue Mobilization quad and iliopsoas release Mobilization Type Myofascial Release Comments worked in supine and in kashif test position on releasing fascial release at the ischium B Body Location MFR Physical Therapy Assessment Goals 2 Impairment Pelvic floor pain rated 4/10 with dyspareunia Retirement Goal (LTG) With education on pelvic floor relaxation and reduced tension Renee is able to be intimate with her without a increase in pain levels Renee is making good progress with being able to reduce tension in the pelvic floor, she is up to a size 5 dilator now and has been working on stretches to reduce pelvic tightness. She has been able to return to intercourse and notes pain levels are decreased. She feels there is still room for improvement but she is doing better some progress LTG Duration 12 weeks + 1 Impairment Tightness and guarding of the pelvic floor with inability to undergo a pap smear for routine exam and dyspareunia Short Term Goal (STG Renee is educated on the use of progressive dilators ) to help reduce tension and improve mobility of the pelvic floor excellent progress as Renee is up to size 5 dilator STG Duration 4 weeks Mud Car Worker Goal (LTG) Renee is able to tolerate EMG biofeedback with a vaginal sensor to work on relaxed awareness of the pelvic floor and is able to tolerate a vaginal pelvic exam goal met LTG Duration 8 weeks Assessment Summary Assessment Renee is doing better overall with pain. If she is able to have the vaginal ultrasound and vaginal exam then we will start working towards discharge. Physical Therapy Plan Frequency and Duration Frequency of 1x/Week Treatment Duration of 8 treatment (weeks) Plan of Care Start 05/27/25 Date Plan of Care End 07/22/25 Date Next Visit Focus/Plan Next Note Type Treatment Note Next Visit Plan Continue with external MFR techniques for the hips and pelvis, check with how Renee did with per pelvic ultrasound and papsmear with MD appt
--- NOTE | 2025-06-16 13:27 | PT.OTN ---
Current Diagnoses Unspecified dyspareunia (06/16/25) Pelvic and perineal pain (06/16/25) Physical Therapy Treatment Note PT OP: Pelvic Health Start: 05/27/25 18:02 Freq: Status: Active Protocol: Document 06/16/25 08:17 [facility] (Rec: 06/16/25 08:24 [facility] [id number]) Out-Patient Physical Therapy Visit Information Visit Information Visit Type Treatment Note Visit Start Time 08:17 Visit Stop Time 09:00 Visit Number 31 OP-PT Subjective Patient Comments Patient Comments pt has had a miscarriage so these past two weeks have been a roller coaster she was able to have a vaginal ultrasound though and is feeling like she could try the pap smear and will be making a appointment for that. Manual Therapy Treatment Soft Tissue Mobilization Transverse perineal release Mobilization Type Myofascial Release Intensity/Depth Moderate Body Position Supine Comments worked on the left side for Transverse perineal release fascial release at the ischium B Body Location MFR Comments worked on release at the medial ischium with hip flexion ROM adductor release B Body Location B adducotrs Mobilization Type Myofascial Release Intensity/Depth Moderate Body Position Supine Comments left greater than right Physical Therapy Assessment Goals 2 Impairment Pelvic floor pain rated 4/10 with dyspareunia Negotiations Director Goal (LTG) With education on pelvic floor relaxation and reduced tension Renee is able to be intimate with her without a increase in pain levels Renee is making good progress with being able to reduce tension in the pelvic floor, she is up to a size 5 dilator now and has been working on stretches to reduce pelvic tightness. She has been able to return to intercourse and notes pain levels are decreased. She feels there is still room for improvement but she is doing better some progress LTG Duration 12 weeks + 1 Impairment Tightness and guarding of the pelvic floor with inability to undergo a pap smear for routine exam and dyspareunia Short Term Goal (STG Renee is educated on the use of progressive dilators ) to help reduce tension and improve mobility of the pelvic floor excellent progress as Renee is up to size 5 dilator STG Duration 4 weeks Negotiations Director Goal (LTG) Renee is able to tolerate EMG biofeedback with a vaginal sensor to work on relaxed awareness of the pelvic floor and is able to tolerate a vaginal pelvic exam goal met LTG Duration 8 weeks Assessment Summary Assessment Renee has one visit left in PT to go over EMG biofeedback again. She is feeling more confident now with having a vaginal exam and was able to tolerate the vaginal ultrasound. Will see her next visit and most likely DC to a [facility] Physical Therapy Plan Frequency and Duration Frequency of 1x/Week Treatment Duration of 8 treatment (weeks) Plan of Care Start 05/27/25 Date Plan of Care End 07/22/25 Date Therapeutic Interventions Therapeutic Home Exercise Program,Manual Therapy,Neuromuscular Re- Interventions education,Patient/Caregiver Education,Self-Care/Home Management,Soft Tissue Mobilization,Therapeutic Exercises Modalities Biofeedback,Vasopneumatic Devices Next Visit Focus/Plan Next Note Type Treatment Note Next Visit Plan follow up with EMG biofeedback next visit to revisit resting tone
--- NOTE | 2025-06-23 10:00 | PT.OTN ---
Current Diagnoses Unspecified dyspareunia (06/23/25) Pelvic and perineal pain (06/23/25) Physical Therapy Treatment Note PT OP: Pelvic Health Start: 05/27/25 18:02 Freq: Status: Active Protocol: Document 06/23/25 09:02 [facility] (Rec: 06/23/25 09:07 [facility] [id number]) Out-Patient Physical Therapy Visit Information Visit Information Visit Type Treatment Note Visit Start Time 09:03 Visit Stop Time 09:45 Visit Number 32 OP-PT Subjective Patient Comments Patient Comments Renee brings her sensor in today for biofeedback check , she continues to work on her stretches. She feels overall she has come so far from where she was and feels she has the tools to work independently after today. Patient Reported Improving Progress Therapeutic Exercises Supine Exercises pelvic floor long holds Supine Exercise Name 5 resting tone Reps/Minutes 10 sec on 10 sec off Comments 13 average and 35 max Manual Therapy Treatment Soft Tissue Mobilization Transverse perineal release Mobilization Type Myofascial Release Intensity/Depth Moderate Body Position Supine Comments worked on bilateral sides for Transverse perineal release fascial release at the ischium B Body Location MFR Comments worked on release at the medial ischium with hip flexion ROM adductor release B Body Location B adducotrs Mobilization Type Myofascial Release Intensity/Depth Moderate Body Position Supine Physical Therapy Assessment Goals 2 Impairment Pelvic floor pain rated 4/10 with dyspareunia Shirt Maker Goal (LTG) With education on pelvic floor relaxation and reduced tension Renee is able to be intimate with her without a increase in pain levels Renee is making good progress with being able to reduce tension in the pelvic floor, she is up to a size 5 dilator now and has been working on stretches to reduce pelvic tightness. She has been able to return to intercourse and notes pain levels are decreased. She feels there is still room for improvement but she is doing better some progress LTG Duration 12 weeks + 1 Impairment Tightness and guarding of the pelvic floor with inability to undergo a pap smear for routine exam and dyspareunia Short Term Goal (STG Renee is educated on the use of progressive dilators ) to help reduce tension and improve mobility of the pelvic floor excellent progress as Renee is up to size 5 dilator STG Duration 4 weeks Shirt Maker Goal (LTG) Renee is able to tolerate EMG biofeedback with a vaginal sensor to work on relaxed awareness of the pelvic floor and is able to tolerate a vaginal pelvic exam goal met LTG Duration 8 weeks Assessment Summary Assessment Renee has worked hard at home with dilators, stretches , and her pelvic wand. Treatment in the clinic focused on MFR techniques, EMG biofeedback for down training of the pelvic floor and stretches. She has made really good progress and feels she is in a much better place than when she started PT. She will continue to work on her stretches and will make a appt for a pap smear as she feels she is ready to try this now. At this point she is relaxing much better, not fully to baseline but improved overall. Renee will be discharged to a [facility] at this time Physical Therapy Plan Discharge Physical Therapy Discharge Comments excellent progress towards goals and pt feels comfortable with her home program at this time
--- NOTE | 2025-06-24 08:15 | PT.OPDS ---
Current Diagnoses Unspecified dyspareunia (06/23/25) Pelvic and perineal pain (06/23/25) Visit Care Team Role Provider Type Carleen MORALES Provider Primary Care Provider Facility Specialty: Family Practice Address: Phone: Email: DAYNA Chaudhry Attending Provider Non-Staff Referring Provider Specialty: Nursing Address: [address] [place] [address], [id number] Email: Visit Number Visit Number 32 Discharge Summary PT OP: Pelvic Health Start: 05/27/25 18:02 Freq: Status: Active Protocol: Document 06/23/25 09:02 [facility] (Rec: 06/23/25 09:07 [facility] [id number]) Out-Patient Physical Therapy Visit Information Visit Information Visit Type Treatment Note Visit Start Time 09:03 Visit Stop Time 09:45 Visit Number 32 OP-PT Subjective Patient Comments Patient Comments Renee brings her sensor in today for biofeedback check , she continues to work on her stretches. She feels overall she has come so far from where she was and feels she has the tools to work independently after today. Patient Reported Improving Progress Therapeutic Exercises Supine Exercises pelvic floor long holds Supine Exercise Name 5 resting tone Reps/Minutes 10 sec on 10 sec off Comments 13 average and 35 max Manual Therapy Treatment Soft Tissue Mobilization Transverse perineal release Mobilization Type Myofascial Release Intensity/Depth Moderate Body Position Supine Comments worked on bilateral sides for Transverse perineal release fascial release at the ischium B Body Location MFR Comments worked on release at the medial ischium with hip flexion ROM adductor release B Body Location B adducotrs Mobilization Type Myofascial Release Intensity/Depth Moderate Body Position Supine Physical Therapy Assessment Goals 2 Impairment Pelvic floor pain rated 4/10 with dyspareunia Retirement Goal (LTG) With education on pelvic floor relaxation and reduced tension Renee is able to be intimate with her without a increase in pain levels Renee is making good progress with being able to reduce tension in the pelvic floor, she is up to a size 5 dilator now and has been working on stretches to reduce pelvic tightness. She has been able to return to intercourse and notes pain levels are decreased. She feels there is still room for improvement but she is doing better some progress LTG Duration 12 weeks + 1 Impairment Tightness and guarding of the pelvic floor with inability to undergo a pap smear for routine exam and dyspareunia Short Term Goal (STG Renee is educated on the use of progressive dilators ) to help reduce tension and improve mobility of the pelvic floor excellent progress as Renee is up to size 5 dilator STG Duration 4 weeks Roll Winder Goal (LTG) Renee is able to tolerate EMG biofeedback with a vaginal sensor to work on relaxed awareness of the pelvic floor and is able to tolerate a vaginal pelvic exam goal met LTG Duration 8 weeks Assessment Summary Assessment Renee has worked hard at home with dilators, stretches , and her pelvic wand. Treatment in the clinic focused on MFR techniques, EMG biofeedback for down training of the pelvic floor and stretches. She has made really good progress and feels she is in a much better place than when she started PT. She will continue to work on her stretches and will make a appt for a pap smear as she feels she is ready to try this now. At this point she is relaxing much better, not fully to baseline but improved overall. Renee will be discharged to a [facility] at this time Physical Therapy Plan Discharge Physical Therapy Discharge Comments excellent progress towards goals and pt feels comfortable with her home program at this time
== END 2025-06-24 13:03 | disposition home or self-care (01) ==
LOC: PHYS 09:00
PROVIDERS: Referring Provider Nurse Practitioner Family; Visit Provider Nurse Practitioner Family
DX: R10.2 Pelvic and perineal pain (principal); N94.10 Unspecified dyspareunia
CPT/HCPCS: 97110; 97140; 97161; 97535